=== PATIENT | female | born 1970 | race Caucasian/White ===

== ENCOUNTER 2016-05-08 20:55 | Emergency (ER) | payer MEDICAID, MEDICARE ==
[~2016-05-08 20:55] MED LIST: CREON24 PO; OXYC5 PO; PROT40TA PO; THIA100T PO; VISI0.053 EACH EYE; WARF5 PO
[2016-05-09] MEDS ORDERED: TETR0.052 EACH EYE (22:59)
== END 2016-05-08 21:10 | disposition left against medical advice (07) ==
LOC: NEDAMB 20:55
DX: R10.9 Unspecified abdominal pain (principal)
CPT/HCPCS: 99281

== ENCOUNTER 2016-05-09 15:34 | Emergency (ER) | payer MEDICARE ==
[2016-05-09 15:36] VITALS: BP 125/80; PULSE 97; RESP 18; TEMP 98.3; O2SAT 98
[2016-05-09] MEDS ORDERED: ONDANSETRON HCL 4 MG/2 ML VIAL IVP ONE (19:00)
[2016-05-09] MEDS ORDERED: SODIUM CHLORIDE 0.9% FLUSH 10 ML FLUSH IV FLUSH PRN (19:00)
[2016-05-09] MEDS ORDERED: SODIUM CHLOR 0.9% 1000 ML INJ 1,000 ML IV SCH (19:00)
--- NOTE | 2016-05-09 19:05 | PD ---
HPI Chief Complaint: Abdominal Pain Time Seen by Provider: 19:05 Travel History International Travel<30 days: No Contact w/Intl Traveler<30days: No Traveled to known affect area: No History of Present Illness HPI 46-year-old female presents to the emergency department for evaluation of epigastric abdominal pain for 4 days. Patient has PMH of Alcohol Abuse, Pancreatitis, Antiphospholipid Antibody Syndrome, Superior Mesenteric Vein Thrombosis, Neurosyphilis, Right Eye Blindness, Tobacco Abuse and h/o Spontaneous Pneumothorax. Patient was on Coumadin for thrombosis, but states that she quit taking it after she was discharged last year because she did not like getting her labs redrawn constantly. Patient states that she started drinking again on [employer]'s Day. She states she has never injury every day , but most days. She reports striking 2 beers today. Patient reports history of pancreatitis with similar symptoms. She states that she had some vomiting yesterday. She denies any diarrhea. No blood in her stool. She reports history of laparoscopic abdominal surgery when she was 18. She denies any chance of stating she is not sexually active. She denies any fevers or chills patient has a chest pain or shortness of breath. Patient is a tobacco user. She denies any illegal drug use. PFSH Past Medical History Hx Anticoagulant Therapy: Yes (COUMADIN 5MG PO DAILY) Asthma: No Autoimmune Disease: No Blood Disorders: No Anxiety: No Depression: No Heart Rhythm Problems: No Cancer: No Cardiovascular Problems: Yes High Cholesterol: Yes Chemotherapy: No Chest Pain: No Congestive Heart Failure: No COPD: No Cerebrovascular Accident: No Diabetes: No Diminished Hearing: No Endocrine: No Genitourinary: No Hepatitis: No Hiatal Hernia: No Immune Disorder: No Musculoskeletal: No Neurologic: Yes (NEUROSYPHYLLIS ) Psychiatric: No Reproductive: No Respiratory: Yes (copd) Immunizations Current: Yes Migraines: No Pancreatitis: Yes Radiation Therapy: No Seizures: No Sickle Cell Disease: No Sleep Apnea: No Thyroid Disease: No ?: Not : 2 Para: 2 Past Surgical History Abdominal Surgery: No AICD: No Arteriovenous Shunt: No Body Medical Devices: BREAST IMPLANTS Cardiac Surgery: No Ear Surgery: No Endocrine Surgery: No Eye Surgery: No Genitourinary Surgery: No Gynecologic Surgery: Yes (ENDOMETRIOSIS - LAP 1989; BREAST IMPLANTS) Insulin Pump: No Joint Replacement: No Oral Surgery: Yes Pacemaker: No Thoracic Surgery: Yes (thoracotomy) Tonsillectomy: Yes Other Surgery: Yes (thoracotomy, tonsilectomy ) Social History Alcohol Use: Yes Tobacco Use: Yes (1 PPD) Substance Use: No Allergies-Medications (Allergen,Severity, Reaction): Coded Allergies: Penicillin (Verified Allergy, Severe, Hives, 05/09/16) Reported Meds & Prescriptions Reported Meds & Active Scripts Active Roxicodone 5 Mg Tab (Oxycodone HCl) 5 Mg Tab 10 Mg PO Q4H PRN Protonix (Pantoprazole Sodium) 40 Mg Tab 40 Mg PO Q12HR Coumadin (Warfarin Sod) 5 Mg Tab 5 Mg PO DAILY@1600 Vitamin B1 (Thiamine HCl) 100 Mg Tab 100 Mg PO DAILY Creon (Amylase/Lipase/Protease) 24,000 Unt Cap 1 Cap PO TID Reported Eye Drops (Tetrahydrozoline HCl) 0.05 % Alejandra 1-2 Drop EACH EYE BID PRN Review of Systems Except as stated in HPI: all other systems reviewed are Neg Physical Exam Narrative GENERAL: Well-nourished, well-developed female patient, afebrile. SKIN: Focused skin assessment warm/dry. HEAD: Normocephalic. Atraumatic. EYES: No scleral icterus. No injection or drainage. NECK: Supple, trachea midline. No JVD or lymphadenopathy. CARDIOVASCULAR: Regular rate and rhythm without murmurs, gallops, or rubs. RESPIRATORY: Breath sounds equal bilaterally. No accessory muscle use. Lungs sounds are clear to auscultation GASTROINTESTINAL: Abdomen soft and nondistended. Patient has tenderness over epigastric region and right upper quadrant. MUSCULOSKELETAL: No cyanosis, or edema. BACK: Nontender without obvious deformity. No CVA tenderness. Data Data Last Documented VS Vital Signs Date Time Temp Pulse Resp B/P Pulse Ox O2 Delivery O2 Flow Rate FiO2 05/09/16 21:21 69 17 117/76 97 Room Air 05/09/16 15:36 98.3 Orders Hydromorphone Pf Inj (Dilaudid Pf Inj) (05/09/16 19:15) Complete Blood Count With Diff (05/09/16 19:00) Comprehensive Metabolic Panel (05/09/16 19:00) Lipase (05/09/16 19:00) Urinalysis - C+S If Indicated (05/09/16 19:00) Iv Access Insert/Monitor (05/09/16 19:00) Ecg Monitoring (05/09/16 19:00) Oximetry (05/09/16 19:00) Ondansetron Inj (Zofran Inj) (05/09/16 19:00) Sodium Chlor 0.9% 1000 Ml Inj (Ns 1000 M (05/09/16 19:00) Sodium Chloride 0.9% Flush (Ns Flush) (05/09/16 19:00) Electrocardiogram (05/09/16 19:00) Alcohol (Ethanol) (05/09/16 19:00) Lactic Acid Sepsis Protocol (05/09/16 19:30) Cta Abd/Pel W Iv Contrast W 3d (05/09/16 ) Iohexol 350 Inj (Omnipaque 350 Inj) (05/09/16 19:41) Sodium Chlor 0.9% 1000 Ml Inj (Ns 1000 M (05/09/16 21:00) Urine Culture (05/09/16 21:15) Lactic Acid (05/09/16 22:08) Ceftriaxone Inj (Rocephin Inj) (05/09/16 22:15) Labs Laboratory Tests Test 05/09/16 05/09/16 05/09/16 19:29 19:49 21:15 White Blood Count 5.2 TH/MM3 Red Blood Count 4.77 MIL/MM3 Hemoglobin 16.3 GM/DL Hematocrit 47.6 % Mean Corpuscular Volume 100.0 FL Mean Corpuscular Hemoglobin 34.2 PG Mean Corpuscular Hemoglobin 34.2 % Concent Red Cell Distribution Width 14.8 % Platelet Count 229 TH/MM3 Mean Platelet Volume 6.6 FL Neutrophils (%) (Auto) 43.8 % Lymphocytes (%) (Auto) 40.0 % Monocytes (%) (Auto) 10.3 % Eosinophils (%) (Auto) 5.3 % Basophils (%) (Auto) 0.6 % Neutrophils # (Auto) 2.3 TH/MM3 Lymphocytes # (Auto) 2.1 TH/MM3 Monocytes # (Auto) 0.5 TH/MM3 Eosinophils # (Auto) 0.3 TH/MM3 Basophils # (Auto) 0.0 TH/MM3 CBC Comment DIFF FINAL Differential Comment Sodium Level 136 MEQ/L Potassium Level 4.0 MEQ/L Chloride Level 98 MEQ/L Carbon Dioxide Level 26.8 MEQ/L Anion Gap 11 MEQ/L Blood Urea Nitrogen 4 MG/DL Creatinine 0.61 MG/DL Estimat Glomerular Filtration 105 ML/MIN Rate Random Glucose 92 MG/DL Calcium Level 9.0 MG/DL Total Bilirubin 0.4 MG/DL Aspartate Amino Transf 81 U/L (AST/SGOT) Alanine Aminotransferase 41 U/L (ALT/SGPT) Alkaline Phosphatase 172 U/L Total Protein 8.2 GM/DL Albumin 3.9 GM/DL Lipase 431 U/L Ethyl Alcohol Level 172 MG/DL Lactic Acid Level 2.7 mmol/L Urine Color LIGHT-YELLOW Urine Turbidity HAZY Urine pH 5.0 Urine Specific [place] GREATER THAN 1.050 Urine Protein TRACE mg/dL Urine Glucose (UA) NEG mg/dL Urine Ketones NEG mg/dL Urine Occult Blood SMALL Urine Nitrite POS Urine Bilirubin NEG Urine Urobilinogen LESS THAN 2.0 MG/DL Urine Leukocyte Esterase LARGE Urine RBC 1 /hpf Urine WBC 114 /hpf Urine WBC Clumps RARE Urine Squamous Epithelial 4 /hpf Cells Urine Bacteria MOD /hpf Urine Mucus FEW /lpf Microscopic Urinalysis Comment CULTURE INDICATED MDM Medical Decision Making Medical Screen Exam Complete: Yes Emergency Medical Condition: Yes Medical Record Reviewed: Yes Interpretation(s) Last Impressions Abdomen/Pelvis CT 05/09/16 0000 Signed Impressions: Service Date/Time: Wednesday, May 09, 2016 19:35 - CONCLUSION: Calcification and plaque in the proximal right iliac causing less than 30%% narrowing. Otherwise negative CTA abdomen and pelvis. Mario Neri MD Differential Diagnosis Acute pancreatitis versus cholecystitis versus alcohol abuse versus colitis Narrative Course 46-year-old female presents to the emergency department for evaluation of abdominal pain for 4 days. Patient states is similar to pancreatitis in the past. She reports drinking alcohol since . EKG, CBC, CMP, lipase, lactic acid, UA are ordered and pending. CTA of the abdomen/pelvis with IV contrast is ordered and pending. EKG shows SR, HR 78, no acute ST changes. CBC shows Hgb 16.3, Hct 47.6. CMP shows no acute abnormality. Lipase is 431. UA shows positive nitrate, large leukocyte esterase, culture indicated. Alcohol level is 172. Lactic acid is elevated at 2.7. CTA abdomen/pelvis shows calcification and plaque in the proximal right iliac causing less than 30% narrowing. Otherwise negative CTA abdomen and pelvis. Patient is given a total of 2 L normal saline IV bolus. Lactic acid is repeated after normal saline bolus. Patient is given Rocephin 1 gm IV. Lactic acid is pending. Dr. Leos will follow up on repeat lactic and disposition patient. Anny Lindsey May 09, 2016 19:05
[2016-05-09] MEDS ORDERED: HYDROmorphone HCL PF 1 MG/ML VIAL IV PUSH ONE (19:15)
[2016-05-09 19:20] VITALS: O2SAT 99
[2016-05-09] MEDS ORDERED: IOHEXOL 350 MG/ML 10 ML VIAL (for RAD DIAG) IV ONE (19:41)
[2016-05-09 19:50] LABS: AUTOMATED NEUTROPHIL # 2.3 TH/MM3 (1.8-7.7); BASOPHIL % 0.6 % (0.0-2.0); EOSINOPHIL # 0.3 TH/MM3 (0-0.4); EOSINOPHIL % 5.3 % (0.0-4.0); HEMATOCRIT 47.6 % (35.0-46.0); HEMO FLAGS DIFF FINAL; LYMPHOCYTE # 2.1 TH/MM3 (1.0-4.8); MEAN CORPUSCULAR HEMOGLOBIN 34.2 PG (27.0-34.0); MEAN CORPUSCULAR HGB CONC 34.2 % (32.0-36.0); MONO % 10.3 % (0.0-8.0); NEUT % 43.8 % (16.0-70.0); PLATELET COUNT 229 TH/MM3 (150-450); RED BLOOD COUNT 4.77 MIL/MM3 (4.00-5.30); RED CELL DISTRIBUTION WIDTH 14.8 % (11.6-17.2); WHITE BLOOD COUNT 5.2 TH/MM3 (4.0-11.0)
--- NOTE | 2016-05-09 20:29 | RADRPT ---
EXAM DATE/TIME: 05/09/2016 19:35 [facility] COMPARISON: No previous studies available for comparison. INDICATIONS : Right lower abdomen pain for four days. IV CONTRAST: 80 cc Omnipaque 350 (iohexol) IV ORAL CONTRAST: No oral contrast ingested. RADIATION DOSE: 3.37 CTDIvol (mGy) MEDICAL HISTORY : Pancreatitis. Chronic obstructive pulmonary disease. SURGICAL HISTORY : None. ENCOUNTER: Initial ACUITY: 4 - 6 days PAIN SCALE: 3/10 LOCATION: Right lower quadrant TECHNIQUE: Volumetric scanning was performed using a multi-row detector CT scanner. The data was post processed with a variety of visualization algorithms including full volume maximum intensity projection, multi -planar sliding thin slab reformation, curved planar reformation, and surface rendering techniques. Using automated exposure control and adjustment of the mA and/or kV according to patient size, radiat ion dose was kept as low as reasonably achievable to obtain optimal diagnostic quality images. FINDINGS: ABDOMINAL AORTA: The lumen is smooth without significant narrowing or aneurismal dilation. The celiac axis has 2 orif ices, one from the hepatic artery and the other from the splenic artery. No stenosis seen. The SMA is normal in configuration. There are 2 renal arteries on both sides with the dominant renal artery on the right supplying the upper pole and the dominant on the left supplying the mid and lower pole.. No stenosis seen. BIFURCATION: Normal. RIGHT PELVIS: There is an elongated calcification in the proximal common iliac artery necrosis less than 30% narrow ing. The internal and external iliac vessels are patent without luminal irregularity. LEFT PELVIS: The left common iliac, internal iliac and external iliac vessels are patent and without luminal irreg ularity. CONCLUSION: Calcification and plaque in the proximal right iliac causing less than 30% narrowing. Otherwise nega tive CTA abdomen and pelvis. Mario Neri MD on May 09, 2016 at 20:22 Board Certified Radiologist. This report was verified electronically.
[2016-05-09 20:52] LABS: ALKALINE PHOSPHATASE 172 U/L (45-117); ALT (GPT) 41 U/L (10-53); ANION GAP 11 MEQ/L (5-15); AST (GOT) 81 U/L (15-37); BICARBONATE 26.8 MEQ/L (21.0-32.0); BLOOD UREA NITROGEN 4 MG/DL (7-18); CHLORIDE 98 MEQ/L (98-107); GLOMERULAR FILTRATION RATE 105 ML/MIN (>89); SODIUM (NA) 136 MEQ/L (136-145); TOTAL BILIRUBIN ADULT 0.4 MG/DL (0.2-1.0)
[2016-05-09] MEDS ORDERED: SODIUM CHLOR 0.9% 1000 ML INJ 1,000 ML IV ONE (21:00)
--- NOTE | 2016-05-09 21:09 | PD ---
Data Data Last Documented VS Vital Signs Date Time Temp Pulse Resp B/P Pulse Ox O2 Delivery O2 Flow Rate FiO2 05/09/16 21:21 69 17 117/76 97 Room Air 05/09/16 15:36 98.3 Orders Hydromorphone Pf Inj (Dilaudid Pf Inj) (05/09/16 19:15) Complete Blood Count With Diff (05/09/16 19:00) Comprehensive Metabolic Panel (05/09/16 19:00) Lipase (05/09/16 19:00) Urinalysis - C+S If Indicated (05/09/16 19:00) Iv Access Insert/Monitor (05/09/16 19:00) Ecg Monitoring (05/09/16 19:00) Oximetry (05/09/16 19:00) Ondansetron Inj (Zofran Inj) (05/09/16 19:00) Sodium Chlor 0.9% 1000 Ml Inj (Ns 1000 M (05/09/16 19:00) Sodium Chloride 0.9% Flush (Ns Flush) (05/09/16 19:00) Electrocardiogram (05/09/16 19:00) Alcohol (Ethanol) (05/09/16 19:00) Lactic Acid Sepsis Protocol (05/09/16 19:30) Cta Abd/Pel W Iv Contrast W 3d (05/09/16 ) Iohexol 350 Inj (Omnipaque 350 Inj) (05/09/16 19:41) Sodium Chlor 0.9% 1000 Ml Inj (Ns 1000 M (05/09/16 21:00) Urine Culture (05/09/16 21:15) Ceftriaxone Inj (Rocephin Inj) (05/09/16 22:15) Acetaminophen (Tylenol) (05/09/16 23:45) Labs Laboratory Tests Test 05/09/16 05/09/16 05/09/16 05/09/16 19:29 19:49 21:15 23:00 White Blood Count 5.2 TH/MM3 Red Blood Count 4.77 MIL/MM3 Hemoglobin 16.3 GM/DL Hematocrit 47.6 % Mean Corpuscular Volume 100.0 FL Mean Corpuscular Hemoglobin 34.2 PG Mean Corpuscular Hemoglobin 34.2 % Concent Red Cell Distribution Width 14.8 % Platelet Count 229 TH/MM3 Mean Platelet Volume 6.6 FL Neutrophils (%) (Auto) 43.8 % Lymphocytes (%) (Auto) 40.0 % Monocytes (%) (Auto) 10.3 % Eosinophils (%) (Auto) 5.3 % Basophils (%) (Auto) 0.6 % Neutrophils # (Auto) 2.3 TH/MM3 Lymphocytes # (Auto) 2.1 TH/MM3 Monocytes # (Auto) 0.5 TH/MM3 Eosinophils # (Auto) 0.3 TH/MM3 Basophils # (Auto) 0.0 TH/MM3 CBC Comment DIFF FINAL Differential Comment Sodium Level 136 MEQ/L Potassium Level 4.0 MEQ/L Chloride Level 98 MEQ/L Carbon Dioxide Level 26.8 MEQ/L Anion Gap 11 MEQ/L Blood Urea Nitrogen 4 MG/DL Creatinine 0.61 MG/DL Estimat Glomerular Filtration 105 ML/MIN Rate Random Glucose 92 MG/DL Calcium Level 9.0 MG/DL Total Bilirubin 0.4 MG/DL Aspartate Amino Transf 81 U/L (AST/SGOT) Alanine Aminotransferase 41 U/L (ALT/SGPT) Alkaline Phosphatase 172 U/L Total Protein 8.2 GM/DL Albumin 3.9 GM/DL Lipase 431 U/L Ethyl Alcohol Level 172 MG/DL Lactic Acid Level 2.7 mmol/L 2.3 mmol/L Urine Color LIGHT-YELLOW Urine Turbidity HAZY Urine pH 5.0 Urine Specific [place] GREATER THAN 1.050 Urine Protein TRACE mg/dL Urine Glucose (UA) NEG mg/dL Urine Ketones NEG mg/dL Urine Occult Blood SMALL Urine Nitrite POS Urine Bilirubin NEG Urine Urobilinogen LESS THAN 2.0 MG/DL Urine Leukocyte Esterase LARGE Urine RBC 1 /hpf Urine WBC 114 /hpf Urine WBC Clumps RARE Urine Squamous Epithelial 4 /hpf Cells Urine Bacteria MOD /hpf Urine Mucus FEW /lpf Microscopic Urinalysis Comment CULTURE INDICATED MDM Supervised Visit with [facility]: Yes Narrative Course I, Dr. Leos, have reviewed the advance practice practioner's documentation and am in agreement, met with the patient face to face, made the diagnosis, and the medical decision making was done by me. *My assessment and Findings: 46-year-old female with history of alcoholic pancreatitis, antiphospholipid syndrome with previous superior mesenteric vein thrombosis no longer on anticoagulants here with complaint of epigastric pain radiating to the back similar previous episodes of pancreatitis. Patient took herself anticoagulation approximately year ago because she didn't like having INR checks. She started drinking heavily again on [employer]'s Day and since has had progressively worsening epigastric pain. Overall benign abdominal exam with minimal epigastric pain to palpation. Pain is not out of proportion to exam. No rebound or guarding. Differential includes pancreatitis, gastritis, peptic ulcer disease, hepatobiliary pathology and less likely intra-abdominal vein or arterial thrombosis. CT of the abdomen and pelvis was unremarkable. Laboratory workup notable for minimally elevated lipase and lactate 2.7. Evidence of hemoconcentration with hemoglobin 16.3. Intoxicated with blood alcohol level of the 100s. Patient was given 2 L normal saline bolus and lactate was repeated showing normalization 2.3. Urinalysis is positive for UTI and patient was treated with antibiotics here. She is overall well-appearing and wants to go home. She was able to tolerate clear liquids in the emergency department. Patient will be discharged home with antiemetics, antibiotics and dietary advancement as pain tolerates for pancreatitis. Diagnosis Primary Impression: UTI (lower urinary tract infection) Additional Impressions: Sepsis Qualified Code: A41.9 - Sepsis, due to unspecified organism Acute alcoholic pancreatitis Qualified Code: K85.20 - Alcohol-induced acute pancreatitis without infection or necrosis Referrals: Primary Care Physician as needed Additional Instruction: Nausea medications as needed. Advance diet slowly drinking clear liquids only for the first 24-48 hours. Antibiotics as prescribed. Med/Other Pt SpecificInfo: Prescription(s) given Scripts Cephalexin (Keflex)500 Mg [id number] Mg PO Q8H 7 Days Ref 0 Prov:Elyse Leos MD 05/10/16 Promethazine Supp (Phenergan Supp)25 Mg Supp25 Mg RECTAL Q4H PRN (NAUSEA OR VOMITING) #10 SUPP Ref 0 Prov:Elyse Leos MD 05/10/16 Ondansetron Odt (Zofran Odt)8 Mg Tab8 Mg SL Q8H PRN (NAUSEA OR VOMITING) #10 TAB Ref 0 Prov:Elyse Leos MD 05/10/16 Disposition: 01 DISCHARGE HOME Condition: Stable Elyse Leos MD May 09, 2016 21:08
[2016-05-09 21:21] VITALS: BP 117/76; PULSE 69; RESP 17; O2SAT 97
[2016-05-09 21:56] LABS: LACTIC ACID GHOST NOT REPORTABLE
[2016-05-09 22:01] LABS: BACTERIA, URINE MOD /hpf; BLOOD, URINE SMALL (NEG); COMMENT (UR) CULTURE INDICATED; CULTURE IF INDICATED CULTURE INDICATED; GLUCOSE,URINE NEG (NEG); KETONE, URINE NEG (NEG); MUCUS URINE FEW /lpf (OCC); SQUAMOUS EPITHELIAL CELL URINE 4 /hpf (0-5); URINE COLOR LIGHT-YELLOW (YELLW/STRAW)
[2016-05-09 22:08] LABS: NITRITE,URINE POS (NEG)
[2016-05-09] MEDS ORDERED: cefTRIAXone INJ 1,000 MG in SODIUM CHLORIDE 0.9% INJ 100 ML IV ONE (22:15)
[2016-05-09] MEDS ORDERED: TETR0.052 EACH EYE (22:59)
--- NOTE | 2016-05-09 23:43 | EKG ---
Date Performed: 05/09/2016 Time Performed: 19:11:57 PTAGE: 46 years EKG: Sinus rhythm POSSIBLE LEFT ATRIAL ENLARGEMENT SEPTAL MYOCARDIAL INFARCTION ABNORMAL ECG PREVIOUS TRACING : 06/15/2015 18.35 DOCTOR: Jonathan Hurtado Interpretating Date/Time 05/09/2016 23:41:42
[2016-05-09] MEDS ORDERED: ACETAMINOPHEN 500 MG CPLT PO ONE (23:45)
[2016-05-10] MEDS ORDERED: PROM1SUP7 RECTAL (00:07)
[2016-05-10] MEDS ORDERED: CEPH-460 PO (00:07)
[2016-05-10] MEDS ORDERED: ZOFR8TAB4 SL (00:07)
[2016-05-10 00:19] VITALS: BP 137/72; PULSE 74; RESP 18; O2SAT 96
== END 2016-05-10 00:55 | disposition home or self-care (01) ==
LOC: NEPE 15:34
DX: N39.0 Urinary tract infection, site not specified (principal); A41.9 Sepsis, unspecified organism; K85.20 Alcohol induced acute pancreatitis without necrosis or infection; B96.20 Unspecified Escherichia coli [E. coli] as the cause of diseases classified elsewhere; R94.31 Abnormal electrocardiogram [ECG] [EKG]; E78.00 Pure hypercholesterolemia, unspecified; F17.200 Nicotine dependence, unspecified, uncomplicated; Z87.19 Personal history of other diseases of the digestive system; Z86.79 Personal history of other diseases of the circulatory system; Z86.69 Personal history of other diseases of the nervous system and sense organs
CPT/HCPCS: 74174; 80053; 80307; 81001; 83605; 83690; 85025; 87077; 87086; 87186; 93005; 96361; 96365; 96375; 99284; J0696; J1170; J2405; J7030; Q9967

== ENCOUNTER 2016-06-22 19:38 | Inpatient (IN) | payer MEDICARE ==
[~2016-06-22] VITALS: Ht 162.6 cm; Wt 47.2 kg
[~2016-06-22 19:38] MED LIST changes: +CEPH-460 PO; -CREON24 PO; -OXYC5 PO; +PROM1SUP7 RECTAL; -PROT40TA PO; +TETR0.052 EACH EYE; -THIA100T PO; -VISI0.053 EACH EYE; -WARF5 PO; +ZOFR8TAB4 SL
[2016-06-22] MEDS ORDERED: MORPHINE SULFATE 4 MG/ML INJ IV PUSH ONE (20:00)
[2016-06-22] MEDS ORDERED: SODIUM CHLOR 0.9% 1000 ML INJ 1,000 ML IV ONE (20:00)
[2016-06-22] MEDS ORDERED: ONDANSETRON HCL 4 MG/2 ML VIAL IV ONE (20:00)
[2016-06-22 20:08] VITALS: BP 145/85; PULSE 92; RESP 16; TEMP 98.3; O2SAT 100
--- NOTE | 2016-06-22 20:08 | PD ---
HPI Chief Complaint: abdominal pain Time Seen by Provider: 19:50 Travel History International Travel<30 days: No Contact w/Intl Traveler<30days: No History of Present Illness HPI The patient is a 46 year old female who presents to the [facility] emergency department with a history of abdominal pain and she reports began yesterday. The patient reports that the pain is in the midepigastric area and right upper quadrant of the abdomen. She reports that it is constant and sharp in character with a burning sensation that goes straight through to her back. She reports that the pain is a 10 out of 10 in severity today. She reports that it is similar to her prior history of pancreatitis. She reports that she was diagnosed with pancreatitis he year ago. She reports that she recently relapsed with drinking alcohol on April 24, 2016. She reports that she had been drinking a 6 pack per day. She has weaned herself down to 2 beers per day. She reports she does get tremulous when she does not drink. She reports that she's had nausea and vomiting 10 today. She denies having any diarrhea. Her last bowel movement was yesterday. She denies having any fevers or chills. She does have a lingering cough after being diagnosed with pneumonia 2 months ago. She denies it being more productive than usual. She reports that it is usually productive of the morning. She reports that she continues to smoke a pack cigarettes per day. She does have a history of COPD and has had a thoracotomy related to bleb resection from COPD. She denies having a primary care physician. She denies taking any medications other than using an eyedrop for a history of neurosyphilis and legal blindness associated with this. She denies having any dysuria, hematuria, urinary urgency, or frequency. The patient denies any recent fevers, worsening congestion, neck pain, chest pain, worsening shortness of breath, or neurologic symptoms. LMP: 2 years ago. PFSH Past Medical History Narrative Medical The patient's past medical history is significant for COPD, neurosyphilis with resultant visual impairment, consider to be legally blind, history of pancreatitis, history of alcohol abuse, hyperlipidemia. Hx Anticoagulant Therapy: Yes (COUMADIN 5MG PO DAILY) Asthma: No Autoimmune Disease: No Blood Disorders: No Anxiety: No Depression: No Heart Rhythm Problems: No Cancer: No Cardiovascular Problems: Yes High Cholesterol: Yes Chemotherapy: No Chest Pain: No Congestive Heart Failure: No COPD: No Cerebrovascular Accident: No Diabetes: No Diminished Hearing: No Endocrine: No Genitourinary: No Hepatitis: No Hiatal Hernia: No Immune Disorder: No Musculoskeletal: No Neurologic: Yes (NEUROSYPHYLLIS ) Psychiatric: No Reproductive: No Respiratory: Yes (copd) Immunizations Current: Yes Migraines: No Pancreatitis: Yes Radiation Therapy: No Seizures: No Sickle Cell Disease: No Sleep Apnea: No Thyroid Disease: No : 2 Para: 2 Past Surgical History Narrative Surgical The patient's past surgical history is significant for breast implants, laparoscopy related to endometriosis, tonsillectomy, thoracotomy, oral surgery. Abdominal Surgery: No AICD: No Arteriovenous Shunt: No Body Medical Devices: BREAST IMPLANTS Cardiac Surgery: No Ear Surgery: No Endocrine Surgery: No Eye Surgery: No Genitourinary Surgery: No Gynecologic Surgery: Yes (ENDOMETRIOSIS - LAP 1988; BREAST IMPLANTS) Insulin Pump: No Joint Replacement: No Oral Surgery: Yes Pacemaker: No Thoracic Surgery: Yes (thoracotomy) Tonsillectomy: Yes Other Surgery: Yes (thoracotomy, tonsilectomy ) Social History Alcohol Use: Yes (2 beers per day) Tobacco Use: Yes (one pack per day) Substance Use: No Allergies-Medications (Allergen,Severity, Reaction): Coded Allergies: Penicillin (Verified Allergy, Severe, Hives, 06/22/16) Reported Meds & Prescriptions Reported Meds & Active Scripts Active Keflex (Cephalexin) 500 Mg Cap 500 Mg PO Q8H 7 Days Phenergan Supp (Promethazine HCl) 25 Mg Supp 25 Mg RECTAL Q4H PRN Zofran Odt (Ondansetron Odt) 8 Mg Tab 8 Mg SL Q8H PRN Reported Tetrahydrozoline Opth Drops 0.05 % Soln 1-2 Drop EACH EYE QID PRN Review of Systems Except as stated in HPI: all other systems reviewed are Neg General / Constitutional: No: Fever Eyes: No: Visual changes HENT: No: Headaches Cardiovascular: No: Chest Pain or Discomfort Respiratory: No: Shortness of Breath Gastrointestinal: Positive: Nausea, Vomiting, Abdominal Pain, No: Diarrhea, Hematemesis, Hematochezia, Constipation, Indigestion, Loss of Appetite Genitourinary: No: Urgency, Frequency, Dysuria, Flank Pain Musculoskeletal: No: Pain Skin: No Rash Neurologic: No: Weakness Psychiatric: No: Depression Endocrine: No: Polydipsia Hematologic/Lymphatic: No: Easy Bruising Physical Exam Narrative General: The patient is a well-developed, thin appearing female, in no acute distress. Head and Neck exam: Head is normocephalic atraumatic. Eyes: The patient is legally blind. The patient's right pupil is not reactive to light, however she reports that she has no vision in that eye, the left pupil is dilated at 6 mm and reactive to light. She reports having chronic light sensitivity in her eyes. Nose: Midline septum with pink mucous membranes Mouth: Dentition unremarkable. Moist mucus membranes. Posterior oropharynx is not erythematous. No tonsillar hypertrophy. Uvula midline. Airway patent. Neck: No palpable lymphadenopathy. No nuchal rigidity. No thyromegaly. Cardiovascular: Regular rate and rhythm without murmurs, gallops, or rubs. Lungs: Clear to auscultation bilaterally. No wheezes, rhonchi, or rales. Abdomen: Soft, with tenderness on palpation in the midepigastric area and right upper quadrant no other tenderness on palpation of the other quadrants of the abdomen. No guarding, rebound, or rigidity. Normal bowel sounds are audible. No tenderness on palpation of McBurney's point. Negative [place] sign. Extremities: No clubbing, cyanosis, or edema. 2+ pulses in all 4 extremities. No calf tenderness on palpation. Back: No spinous process tenderness to palpation. No costovertebral angle tenderness to palpation. Neurologic Exam: Grossly nonfocal. Skin Exam: No rash noted. Intact skin that is warm and dry. Data Data Last Documented VS Vital Signs Date Time Temp Pulse Resp B/P Pulse Ox O2 Delivery O2 Flow Rate FiO2 06/22/16 20:08 98.3 92 16 145/85 100 Room Air Orders Complete Blood Count With Diff (06/22/16 20:00) Comprehensive Metabolic Panel (06/22/16 20:00) Creatine Kinase (Cpk) (06/22/16 20:00) Ckmb (Isoenzyme) Profile (06/22/16 20:00) Troponin I (06/22/16 20:00) B-Type Natriuretic Peptide (06/22/16 20:00) Prothrombin Time / Inr (Pt) (06/22/16 20:00) Act Partial Throm Time (Ptt) (06/22/16 20:00) Lipase (06/22/16 20:00) Urinalysis - C+S If Indicated (06/22/16 20:00) Magnesium (Mg) (06/22/16 20:00) Chest, Single Ap (06/22/16 20:00) Ct Abd/Pel W Iv Contrast(Rout) (06/22/16 20:00) Iv Access Insert/Monitor (06/22/16 20:00) Ecg Monitoring (06/22/16 20:00) Oximetry (06/22/16 20:00) Ed Urine Pregnancytest Poc (06/22/16 20:00) Drug Screen, Random Urine (06/22/16 20:00) Alcohol (Ethanol) (06/22/16 20:00) Sodium Chlor 0.9% 1000 Ml Inj (Ns 1000 M (06/22/16 20:00) Ondansetron Inj (Zofran Inj) (06/22/16 20:00) Morphine Inj (Morphine Inj) (06/22/16 20:00) Lactic Acid (06/22/16 20:00) Admit Order (Ed Use Only) (06/22/16 21:41) Labs Laboratory Tests Test 06/22/16 06/22/16 20:00 20:20 White Blood Count 7.7 TH/MM3 Red Blood Count 4.80 MIL/MM3 Hemoglobin 16.6 GM/DL Hematocrit 48.8 % Mean Corpuscular Volume 101.7 FL Mean Corpuscular Hemoglobin 34.5 PG Mean Corpuscular Hemoglobin 33.9 % Concent Red Cell Distribution Width 15.2 % Platelet Count 196 TH/MM3 Mean Platelet Volume 8.1 FL Neutrophils (%) (Auto) 76.3 % Lymphocytes (%) (Auto) 17.3 % Monocytes (%) (Auto) 5.4 % Eosinophils (%) (Auto) 0.2 % Basophils (%) (Auto) 0.8 % Neutrophils # (Auto) 5.9 TH/MM3 Lymphocytes # (Auto) 1.3 TH/MM3 Monocytes # (Auto) 0.4 TH/MM3 Eosinophils # (Auto) 0.0 TH/MM3 Basophils # (Auto) 0.1 TH/MM3 CBC Comment DIFF FINAL Differential Comment Prothrombin Time 14.7 SEC Prothromb Time International 1.3 RATIO Ratio Activated Partial 32.4 SEC Thromboplast Time Sodium Level 133 MEQ/L Potassium Level 3.5 MEQ/L Chloride Level 89 MEQ/L Carbon Dioxide Level 26.4 MEQ/L Anion Gap 18 MEQ/L Blood Urea Nitrogen 4 MG/DL Creatinine 0.56 MG/DL Estimat Glomerular Filtration 116 ML/MIN Rate Random Glucose 122 MG/DL Calcium Level 9.7 MG/DL Magnesium Level 1.9 MG/DL Total Bilirubin 0.5 MG/DL Aspartate Amino Transf 204 U/L (AST/SGOT) Alanine Aminotransferase 107 U/L (ALT/SGPT) Alkaline Phosphatase 220 U/L Total Creatine Kinase 57 U/L Troponin I LESS THAN 0.02 NG/ML B-Type Natriuretic Peptide 13 PG/ML Total Protein 8.4 GM/DL Albumin 4.2 GM/DL Lipase 4124 U/L Ethyl Alcohol Level 173 MG/DL Lactic Acid Level 1.1 mmol/L [facility] Medical Decision Making Medical Screen Exam Complete: Yes Emergency Medical Condition: Yes Medical Record Reviewed: Yes Interpretation(s) Last Impressions Chest X-Ray 06/22/161999 Signed Impressions: Service Date/Time: Wednesday, June 22, 2016 20:27 - CONCLUSION: No acute disease. Shane Mccoy MD Differential Diagnosis Acute pancreatitis, versus exacerbation of chronic pancreatitis, versus peptic ulcer disease, versus alcohol related gastritis, versus esophagitis, versus ischemic bowel Narrative Course During the course of the patients emergency department visit, the patients history, examination, and differential diagnosis were reviewed with the patient. The patient had IV access obtained and blood work sent for analysis. The patient was placed on a director of cardiac rehabilitation with oximetry and blood pressure monitoring. The patient was initially provided Normal saline 1 L IV fluid bolus, Zofran 4 mg IV, morphine 4 mg IV. The patients laboratory studies were reviewed and remarkable for a CMP that is remarkable for sodium 133, chloride 89, anion gap 18, BUN 4, glucose 122, lactic acid 1.1, AST 204, ALT 107, alkaline phosphatase 220, CPK 57, troponin I less than 0.02, BNP 13, lipase 4124, PT 14.7, PTT 32.4, alcohol level CLXXIII, CBC shows a white count of 7.7, hemoglobin 16.6, platelets 196 with 76.3 neutrophils Radiology studies were reviewed and remarkable for a chest x-ray that shows no acute abnormality. CT scan of the abdomen and pelvis shows. Pancreatic fluid and stranding likely from pancreatitis, correlation with amylase lipase levels recommended, right basilar atelectasis, mild hepatic steatosis. The patient will be admitted to the hospital for continued evaluation and treatment of acute pancreatitis related to alcohol abuse. The patients results were discussed with the patient, including the plan of care. I explained that further testing and/ or monitoring is indicated based on the patients history, examination, and/ or laboratory findings. Therefore, I recommended admission for additional evaluation. The patient expressed understanding and was agreeable with this plan. The patient was admitted to the hospital in stable condition and [facility] Physician Communication Physician Communication The patient's case was discussed with Dr. Liz who did agree to admit the patient for further evaluation and treatment at this time. Diagnosis Primary Impression: Acute alcoholic pancreatitis Qualified Code: K85.20 - Alcohol-induced acute pancreatitis, unspecified complication status Additional Impression: Alcohol abuse Admitting Information Admitting Physician Requests: Admit Ileana Garcia MD June 22, 2016 20:08
--- NOTE | 2016-06-22 20:31 | RADRPT ---
EXAM DATE/TIME: 06/22/2016 20:27 [facility] COMPARISON: No previous studies available for comparison. INDICATIONS : Chest and abdominal pain. MEDICAL HISTORY : Pancreatitis. Chronic obstructive pulmonary disease. SURGICAL HISTORY : None. ENCOUNTER: Initial ACUITY: 1 day PAIN SCORE: 6/10 LOCATION: Bilateral chest FINDINGS: Patient rotated to the right. A single view of the chest demonstrates the lungs to be symmetrically a erated without evidence of mass, infiltrate or effusion. The cardiomediastinal contours are unremark able. Osseous structures are intact. CONCLUSION: No acute disease. Shane Mccoy MD on June 22, 2016 at 20:28 Board Certified Radiologist. This report was verified electronically.
[2016-06-22 21:11] LABS: APTT (PATIENT) 32.4 SEC (24.3-30.1); INTERNATIONAL NORMALIZED RATIO 1.3 RATIO; PROTHROMBIN TIME - PATIENT 14.7 SEC (9.8-11.6)
[2016-06-22 21:31] LABS: ALKALINE PHOSPHATASE 220 U/L (45-117); ALT (GPT) 107 U/L (10-53); ANION GAP 18 MEQ/L (5-15); AST (GOT) 204 U/L (15-37); BICARBONATE 26.4 MEQ/L (21.0-32.0); BLOOD UREA NITROGEN 4 MG/DL (7-18); CHLORIDE 89 MEQ/L (98-107); GLOMERULAR FILTRATION RATE 116 ML/MIN (>89); MAGNESIUM 1.9 MG/DL (1.5-2.5); POTASSIUM 3.5 MEQ/L (3.5-5.1); SODIUM (NA) 133 MEQ/L (136-145); TOTAL BILIRUBIN ADULT 0.5 MG/DL (0.2-1.0)
[2016-06-22 21:32] LABS: CREATINE KINASE 57 U/L (26-192)
[2016-06-22] MEDS ORDERED: METOCLOPRAMIDE HCL 10 MG/2 ML VIAL IV PUSH ONE (22:00)
[2016-06-22 22:20] LABS: AUTOMATED NEUTROPHIL # 5.9 TH/MM3 (1.8-7.7); BASOPHIL # 0.1 TH/MM3 (0-0.2); BASOPHIL % 0.8 % (0.0-2.0); EOSINOPHIL % 0.2 % (0.0-4.0); HEMATOCRIT 48.8 % (35.0-46.0); HEMO FLAGS DIFF FINAL; LYMPH % 17.3 % (9.0-44.0); LYMPHOCYTE # 1.3 TH/MM3 (1.0-4.8); MEAN CELL VOLUME 101.7 FL (80.0-100.0); MEAN CORPUSCULAR HEMOGLOBIN 34.5 PG (27.0-34.0); MEAN CORPUSCULAR HGB CONC 33.9 % (32.0-36.0); MONO % 5.4 % (0.0-8.0); NEUT % 76.3 % (16.0-70.0); PLATELET COUNT 196 TH/MM3 (150-450); RED CELL DISTRIBUTION WIDTH 15.2 % (11.6-17.2); WHITE BLOOD COUNT 7.7 TH/MM3 (4.0-11.0)
[2016-06-22] MEDS ORDERED: IOHEXOL 350 MG/ML 10 ML VIAL (for RAD DIAG) IV ONE (22:30)
--- NOTE | 2016-06-22 22:44 | RADRPT ---
EXAM DATE/TIME: 06/22/2016 22:25 [facility] COMPARISON: CT ABDOMEN & PELVIS W CONTRAST, June 15, 2015, 19:44. INDICATIONS : Right upper quadrant pain radiating towards back. IV CONTRAST: 80 cc Omnipaque 350 (iohexol) IV ORAL CONTRAST: No oral contrast ingested. RADIATION DOSE: 4.11 CTDIvol (mGy) MEDICAL HISTORY : Chronic obstructive pulmonary disease. Cardiovascular disease Hypercholesterolemia.Pancreatitis. SURGICAL HISTORY : Thoracotomy. ENCOUNTER: Initial ACUITY: 2 days PAIN SCALE: 10/10 LOCATION: Right upper quadrant TECHNIQUE: Volumetric scanning of the abdomen and pelvis was performed. Using automated exposure control and ad justment of the mA and/or kV according to patient size, radiation dose was kept as low as reasonably achievable to obtain optimal diagnostic quality images. FINDINGS: LOWER LUNGS: Right basilar atelectasis. LIVER: Decreased attenuation without lesion. There is no dilation of the biliary tree. No calcified gallst ones. SPLEEN: Normal size without lesion. PANCREAS: There is fluid and stranding surrounding the pancreas and throughout the mesentery. No peripancreatic fluid collection or abscess. KIDNEYS: Normal in size and shape. There is no mass, stone or hydronephrosis. ADRENAL GLANDS: Within normal limits. VASCULAR: There is no aortic aneurysm. BOWEL/MESENTERY: The stomach, small bowel, and colon demonstrate no acute abnormality. There is no free intraperitone al air or fluid. Normal appendix. ABDOMINAL WALL: Within normal limits. RETROPERITONEUM: There is no lymphadenopathy. BLADDER: No wall thickening or mass. REPRODUCTIVE: Within normal limits. INGUINAL: There is no lymphadenopathy or hernia. MUSCULOSKELETAL: Within normal limits for patient age. CONCLUSION: 1. Peripancreatic fluid and stranding likely from pancreatitis. Correlation with amylase/lipase level s recommended. 2. Right basilar atelectasis. 3. Mild hepatic steatosis Shane Mccoy MD on June 22, 2016 at 22:39 Board Certified Radiologist. This report was verified electronically.
[2016-06-22] MEDS: ENOXAPARIN SODIUM 40 MG/0.4 ML SYRINGE SQ SCH (23:00)
[2016-06-22] MEDS ORDERED: SODIUM CHLORIDE 0.9% FLUSH 10 ML FLUSH IV FLUSH PRN (23:15)
[2016-06-23 01:00] VITALS: BP 116/85; PULSE 100; RESP 16; TEMP 99.5; O2SAT 98
[2016-06-23] MEDS: MORPHINE SULFATE 4 MG/ML INJ IV PUSH PRN ×4 (01:17→14:24)
[2016-06-23] MEDS: ONDANSETRON HCL 4 MG/2 ML VIAL IV PRN ×3 (01:17→17:27)
[2016-06-23] MEDS: SODIUM CHLOR 0.9% 1000 ML INJ 1,000 ML IV SCH ×5 (01:18→23:45)
[2016-06-23 01:55] LABS: BLOOD, URINE TRACE (NEG); COMMENT (UR) CULT NOT INDICATED; CULTURE IF INDICATED CULT NOT INDICATED; GLUCOSE,URINE NEG (NEG); KETONE, URINE 10 mg/dL (NEG); MUCUS URINE FEW /lpf (OCC); NITRITE,URINE NEG (NEG); SQUAMOUS EPITHELIAL CELL URINE 1 /hpf (0-5); URINE COLOR YELLOW (YELLW/STRAW)
[2016-06-23 04:00] VITALS: BP 116/76; PULSE 88; RESP 16; TEMP 99; O2SAT 97
[2016-06-23 07:34] LABS: BASOPHIL # 0.1 TH/MM3 (0-0.2); BASOPHIL % 0.7 % (0.0-2.0); EOSINOPHIL # 0.1 TH/MM3 (0-0.4); HEMO FLAGS DIFF FINAL; LYMPHOCYTE # 1.8 TH/MM3 (1.0-4.8); MEAN CELL VOLUME 101.6 FL (80.0-100.0); MEAN CORPUSCULAR HEMOGLOBIN 33.7 PG (27.0-34.0); MEAN CORPUSCULAR HGB CONC 33.2 % (32.0-36.0); MONO % 9.4 % (0.0-8.0); NEUT % 65.9 % (16.0-70.0); PLATELET COUNT 145 TH/MM3 (150-450); RED BLOOD COUNT 4.23 MIL/MM3 (4.00-5.30); WHITE BLOOD COUNT 7.6 TH/MM3 (4.0-11.0)
[2016-06-23 07:52] LABS: ALKALINE PHOSPHATASE 163 U/L (45-117); ALT (GPT) 71 U/L (10-53); ANION GAP 9 MEQ/L (5-15); AST (GOT) 108 U/L (15-37); BICARBONATE 28.8 MEQ/L (21.0-32.0); BLOOD UREA NITROGEN 4 MG/DL (7-18); CHLORIDE 99 MEQ/L (98-107); GLOMERULAR FILTRATION RATE 182 ML/MIN (>89); POTASSIUM 3.6 MEQ/L (3.5-5.1); SODIUM (NA) 137 MEQ/L (136-145); TOTAL BILIRUBIN ADULT 0.5 MG/DL (0.2-1.0)
[2016-06-23 08:00] VITALS: BP 121/63; PULSE 83; RESP 18; TEMP 98.4; O2SAT 97
[2016-06-23 08:59] LABS: AMPHETAMINE, URINE NEG (NEG); BARBITURATES, URINE NEG (NEG); COCAINE, URINE NEG (NEG)
[2016-06-23] MEDS: SODIUM CHLORIDE 0.9% FLUSH 10 ML FLUSH IV FLUSH SCH ×2 (09:00→21:09)
[2016-06-23 12:00] VITALS: BP 108/63; PULSE 79; RESP 18; TEMP 97.8; O2SAT 92
--- NOTE | 2016-06-23 14:35 | HHI.HP ---
HPI Service [facility] Primary Care Physician No Primary Care Physician Admission Diagnosis Acute pancreatitis, etoh abuse Diagnoses: Chief Complaint: Abdominal pain Travel History International Travel<30 Days: No Contact w/Intl Traveler <30 Da: No Traveled to Known Affected Are: No History of Present Illness Ms. Molina is a 46-year-old female with a history of pancreatitis, alcoholism who presented to the emergency department on 06/22/2016 due to abdominal pain that started day prior to this admission. Patient reported epigastric pain as well as right upper quadrant abdominal pain. Her pain was constant and sharp in nature with a burning sensation and radiated to her back. Her epigastric pain also radiates up substernally with a burning sensation. Pain was 10 out of 10. She had nausea, vomiting yesterday. She has been unable to eat or drink anything and currently does not feel like eating or drinking anything. Denies any fever, chills. Denies any changes in bowel or bladder habits. Review of Systems Except as stated in HPI: all other systems reviewed are Neg Past Family Social History Past Medical History Hyperlipidemia, pancreatitis. Past Surgical History Breast implants, surgery for endometriosis, tonsillectomy Reported Medications Keflex (Cephalexin) 500 Mg Cap 500 Mg PO Q8H 7 Days Phenergan Supp (Promethazine HCl) 25 Mg Supp 25 Mg RECTAL Q4H PRN Zofran Odt (Ondansetron Odt) 8 Mg Tab 8 Mg SL Q8H PRN Reported Tetrahydrozoline Opth Drops 0.05 % Soln 1-2 Drop EACH EYE QID PRN Allergies: Coded Allergies: Penicillin (Verified Allergy, Severe, Hives, 06/22/16) Family History Mother - stroke. Father - [place]. Social History Smokes one pack per day and drinks 2 beers per day. Physical Exam Vital Signs Vital Signs Date Time Temp Pulse Resp B/P Pulse Ox O2 Delivery O2 Flow Rate FiO2 06/23/16 12:00 97.8 79 18 108/63 92 06/23/16 09:12 Room Air 06/23/16 08:00 98.4 83 18 121/63 97 06/23/16 04:00 99.0 88 16 116/76 97 06/23/16 01:02 Room Air 06/23/16 01:00 99.5 100 16 116/85 98 06/22/16 20:08 98.3 92 16 145/85 100 Room Air Physical Exam GENERAL: This is a well-nourished, well-developed patient, in no apparent distress. SKIN: No rashes, ecchymoses or lesions. Warm and dry. HEAD: Atraumatic. Normocephalic. No temporal or scalp tenderness. EYES: Pupils equal round and reactive. No injection or drainage. ENT: Nose without bleeding, purulent drainage or septal hematoma. Airway patent. NECK: Trachea midline. No lymphadenopathy. Supple, nontender, no meningeal signs. CARDIOVASCULAR: Regular rate and rhythm without murmurs, gallops, or rubs. No JVD. RESPIRATORY: Clear to auscultation. Breath sounds equal bilaterally. No wheezes , rales, or rhonchi. GASTROINTESTINAL: Abdomen soft, exquisitely tender to palpation especially epigastric and left side of the abdomen. MUSCULOSKELETAL: Extremities without clubbing, cyanosis, or edema. NEUROLOGICAL: Awake and alert. Cranial nerves II through XII intact. No focal neurological deficits. Normal speech. Laboratory Laboratory Tests Test 06/22/16 06/22/16 06/23/16 06/23/16 20:00 20:20 01:00 06:09 White Blood Count 7.7 7.6 Red Blood Count 4.80 4.23 Hemoglobin 16.6 14.3 Hematocrit 48.8 43.0 Mean Corpuscular Volume 101.7 101.6 Mean Corpuscular Hemoglobin 34.5 33.7 Mean Corpuscular Hemoglobin 33.9 33.2 Concent Red Cell Distribution Width 15.2 15.0 Platelet Count 196 145 Mean Platelet Volume 8.1 6.8 Neutrophils (%) (Auto) 76.3 65.9 Lymphocytes (%) (Auto) 17.3 23.0 Monocytes (%) (Auto) 5.4 9.4 Eosinophils (%) (Auto) 0.2 1.0 Basophils (%) (Auto) 0.8 0.7 Neutrophils # (Auto) 5.9 5.0 Lymphocytes # (Auto) 1.3 1.8 Monocytes # (Auto) 0.4 0.7 Eosinophils # (Auto) 0.0 0.1 Basophils # (Auto) 0.1 0.1 CBC Comment DIFF FINAL DIFF FINAL Differential Comment Prothrombin Time 14.7 Prothromb Time International 1.3 Ratio Activated Partial 32.4 Thromboplast Time Sodium Level 133 137 Potassium Level 3.5 3.6 Chloride Level 89 99 Carbon Dioxide Level 26.4 28.8 Anion Gap 18 9 Blood Urea Nitrogen 4 4 Creatinine 0.56 0.38 Estimat Glomerular Filtration 116 182 Rate Random Glucose 122 75 Calcium Level 9.7 8.4 Magnesium Level 1.9 Total Bilirubin 0.5 0.5 Aspartate Amino Transf 204 108 (AST/SGOT) Alanine Aminotransferase 107 71 (ALT/SGPT) Alkaline Phosphatase 220 163 Total Creatine Kinase 57 Troponin I LESS THAN 0.02 B-Type Natriuretic Peptide 13 Total Protein 8.4 6.5 Albumin 4.2 3.1 Lipase 4124 3826 Ethyl Alcohol Level 173 Lactic Acid Level 1.1 Urine Color YELLOW Urine Turbidity CLEAR Urine pH 7.0 Urine Specific [place] 1.050 Urine Protein TRACE Urine Glucose (UA) NEG Urine Ketones 10 Urine Occult Blood TRACE Urine Nitrite NEG Urine Bilirubin NEG Urine Urobilinogen LESS THAN 2.0 Urine Leukocyte Esterase NEG Urine RBC LESS THAN 1 Urine WBC 1 Urine Squamous Epithelial 1 Cells Urine Mucus FEW Microscopic Urinalysis Comment CULT NOT INDICATED Urine Opiates Screen POS Urine Barbiturates Screen NEG Urine Amphetamines Screen NEG Urine Benzodiazepines Screen NEG Urine Cocaine Screen NEG Urine Cannabinoids Screen NEG Result Diagram: 06/23/16 0609 06/23/16 0609 Imaging Last Impressions Chest X-Ray 06/22/161999 Signed Impressions: Service Date/Time: Wednesday, June 22, 2016 20:27 - CONCLUSION: No acute disease. Shane Mccoy MD Abdomen/Pelvis CT 06/22/161999 Signed Impressions: Service Date/Time: Wednesday, June 22, 2016 22:25 - CONCLUSION: 1. Peripancreatic fluid and stranding likely from pancreatitis. Correlation with amylase/lipase levels recommended. 2. Right basilar atelectasis. 3. Mild hepatic steatosis Shane Mccoy MD Assessment and Plan Problem List: (1) Acute alcoholic pancreatitis ICD Code: K85.2 Status: Acute Assessment and Plan Ms. Molina is a pleasant 46-year-old female with a history of alcoholism, previous pancreatitis who presents to the emergency department on with acute onset of epigastric pain radiating to the back as well as right quadrant pain and later left quadrant abdominal pain. Patient denies any fever or chills. She reports no appetite for food or drinks. Lipase level was above 4000 on admission. - Acute alcoholic pancreatitis - Although likely etiology is alcohol, will obtain abdominal ultrasound to rule out gallbladder pathology. - Increase normal saline from 125 cc per hour to 200 cc per hour. - Discontinue morphine IV. - Start Dilaudid IV 0.5 mg every 4 hours when necessary for pain 3-5 and 1 mg Dilaudid every 3 hours for pain 6-10. - We will initiate diet when patient feels ready. - Alcohol abuse - Counseled patient regarding alcohol abuse and pancreatitis as well as liver disease. - Patient is encouraged to quit alcohol completely. Full code. Susy Physician Certification 2 Midnight Certification Type: Admission for Inpatient Services Order for Inpatient Services The services are ordered in accordance with Medicare regulations or non- Medicare payer requirements, as applicable. In the case of services not specified as inpatient-only, they are appropriately provided as inpatient services in accordance with the 2-midnight benchmark. Estimated LOS (days): 2 days is the estimated time the patient will need to remain in the hospital, assuming treatment plan goals are met and no additional complications. Post-Hospital Plan: Home Problem Qualifiers (1) Acute alcoholic pancreatitis: Qualified Code: K85.20 - Alcohol-induced acute pancreatitis, unspecified complication status Luiz Greene DO June 23, 2016 2:34 pm
[2016-06-23 16:00] VITALS: BP 121/72; PULSE 76; RESP 18; TEMP 97.9; O2SAT 93
[2016-06-23] MEDS ORDERED: HYDROmorphone HCL PF 1 MG/ML VIAL IV PUSH PRN (17:00)
[2016-06-23] MEDS: HYDROmorphone HCL PF 1 MG/ML VIAL IV PUSH PRN ×2 (17:27→21:09)
[2016-06-23 20:00] VITALS: BP 104/67; PULSE 66; RESP 18; TEMP 96.8; O2SAT 97
[2016-06-23] MEDS ORDERED: RESP: ALBUTEROL 2.5 MG/IPRATROPIUM 0.5 MG NEB (PRN) NEB (21:45)
[2016-06-23] MEDS ORDERED: LORazepam 2 MG/ML VIAL IV PUSH PRN (21:45)
[2016-06-23] MEDS: ENOXAPARIN SODIUM 40 MG/0.4 ML SYRINGE SQ SCH (23:45)
[2016-06-24] VITALS: BP 119/71; PULSE 69; RESP 20; TEMP 98.4; O2SAT 99
[2016-06-24] MEDS: ONDANSETRON HCL 4 MG/2 ML VIAL IV PRN (00:55)
[2016-06-24] MEDS: HYDROmorphone HCL PF 1 MG/ML VIAL IV PUSH PRN ×7 (00:55→22:07)
[2016-06-24 04:00] VITALS: BP 103/65; PULSE 75; RESP 18; TEMP 97.4; O2SAT 99
[2016-06-24] MEDS: SODIUM CHLOR 0.9% 1000 ML INJ 1,000 ML IV SCH ×3 (04:20→22:10)
[2016-06-24 07:40] VITALS: BP 101/62; PULSE 65; RESP 16; TEMP 97.8; O2SAT 98
[2016-06-24] MEDS: SODIUM CHLORIDE 0.9% FLUSH 10 ML FLUSH IV FLUSH SCH ×2 (08:37→20:46)
[2016-06-24 11:50] VITALS: BP 104/64; PULSE 72; RESP 16; TEMP 96.2; O2SAT 97
[2016-06-24] MEDS ORDERED: guaiFENesin E.R. 600 MG TAB PO ONE (12:00)
--- NOTE | 2016-06-24 12:20 | HHI.PR ---
Subjective Remarks Follow up for acute pancreatitis. Ms. Molina feels somewhat better today. She feels like she can tolerate clear liquids today. No fever, chills. Objective Vitals Vital Signs Date Time Temp Pulse Resp B/P Pulse Ox O2 Delivery O2 Flow Rate FiO2 06/24/16 09:05 16 06/24/16 07:40 97.8 65 16 101/62 98 06/24/16 04:00 97.4 75 18 103/65 99 06/24/16 00:00 98.4 69 20 119/71 99 06/23/16 20:00 96.8 66 18 104/67 97 06/23/16 19:08 Room Air 06/23/16 16:00 97.9 76 18 121/72 93 06/23/16 12:00 97.8 79 18 108/63 92 I/O 06/23/16 06/23/16 06/23/16 06/24/16 06/24/16 06/24/16 07:00 15:00 23:00 07:00 15:00 23:00 Intake Total 612 ml 0 ml 1079 ml 1582 ml Balance 612 ml 0 ml 1079 ml 1582 ml Intake Oral 240 ml 0 ml 0 ml 0 ml IV Total 372 ml 1079 ml 1582 ml # Voids 1 2 1 2 # Bowel Movements 0 0 0 0 Result Diagram: 06/23/16 0609 06/23/16 0609 Imaging Last Impressions Chest X-Ray 06/22/161999 Signed Impressions: Service Date/Time: Wednesday, June 22, 2016 20:27 - CONCLUSION: No acute disease. Shane Mccoy MD Abdomen/Pelvis CT 06/22/161999 Signed Impressions: Service Date/Time: Wednesday, June 22, 2016 22:25 - CONCLUSION: 1. Peripancreatic fluid and stranding likely from pancreatitis. Correlation with amylase/lipase levels recommended. 2. Right basilar atelectasis. 3. Mild hepatic steatosis Shane Mccoy MD Objective Remarks GENERAL: AOX3, NAD. SKIN: Warm and dry. HEAD: Normocephalic. EYES: No scleral icterus. No injection or drainage. NECK: Supple, trachea midline. No JVD or lymphadenopathy. CARDIOVASCULAR: Regular rate and rhythm without murmurs, gallops, or rubs. RESPIRATORY: Breath sounds equal bilaterally. No accessory muscle use. GASTROINTESTINAL: Abdomen soft, Mildly tender to palpation, nondistended. MUSCULOSKELETAL: No cyanosis, or edema. BACK: Nontender without obvious deformity. No CVA tenderness. Procedures None. A/P Problem List: (1) Acute alcoholic pancreatitis ICD Code: K85.2 Status: Acute Assessment and Plan Ms. Molina is a pleasant 46-year-old female with a history of alcoholism, previous pancreatitis who presents to the emergency department on with acute onset of epigastric pain radiating to the back as well as right quadrant pain and later left quadrant abdominal pain. Patient denies any fever or chills. She reports no appetite for food or drinks. Lipase level was above 4000 on admission. - Acute alcoholic pancreatitis - Although likely etiology is alcohol, will obtain abdominal ultrasound to rule out gallbladder pathology. - Decrease fluid to 100cc/hour. - Continue Dilaudid IV 0.5 mg every 4 hours when necessary for pain 3-5 and 1 mg Dilaudid every 3 hours for pain 6-10. - We will initiate clear liquid diet. - Liver/GB US pending. - Alcohol abuse - Counseled patient regarding alcohol abuse and pancreatitis as well as liver disease. - Patient is encouraged to quit alcohol completely. - Cough - will start Mucinex. Full code. Lovenox Problem Qualifiers (1) Acute alcoholic pancreatitis: Qualified Code: K85.20 - Alcohol-induced acute pancreatitis, unspecified complication status Luiz Greene DO June 24, 2016 11:47
--- NOTE | 2016-06-24 14:58 | RADRPT ---
EXAM DATE/TIME: 06/24/2016 11:36 [facility] COMPARISON: CT ABDOMEN & PELVIS W CONTRAST, June 22, 2016, 22:25. US ARM LEFT VENOUS DOPPLER, June 17, 2015, 8:22. INDICATIONS : Right upper quadrant pain. MEDICAL HISTORY : Chronic obstructive pulmonary disease. Cardiovascular disease. High cholesterol. Pancreatitis. SURGICAL HISTORY : Thoracotomy. ENCOUNTER: Initial ACUITY: 1 day PAIN SCORE: 4/10 LOCATION: Right upper quadrant MEASUREMENTS: LIVER: 14.6 cm length COMMON DUCT: 4 mm RIGHT KIDNEY: 10.3 x 4.4 x 3.8 cm FINDINGS: LIVER: There is heterogeneous, increased echotexture without focal lesion or ductal dilatation. There is a s mall amount of ascites adjacent to the liver. COMMON DUCT: No intraluminal mass or stone visualized. GALLBLADDER: No gallstones are identified. There is a small amount of fluid around the liver however, there is a s mall amount of ascites within the upper abdomen. There is no significant gallbladder wall thickening. PANCREAS: The visualized portion of the pancreas demonstrate mildly increased echogenicity. The pancreatic duct is not visualized. RIGHT KIDNEY: No evidence of hydronephrosis, stone, or mass. CONCLUSION: 1. There is heterogeneous echotexture of the liver. There is a small amount of free fluid within the abdomen. There is fluid adjacent to the gallbladder but no significant gallbladder wall thickening or gallstones are present. 2. Heterogeneous echotexture the pancreas. No pseudocyst is seen. Gennaro Cuadra MD on June 24, 2016 at 14:37 Board Certified Radiologist. This report was verified electronically.
[2016-06-24 15:35] VITALS: BP 110/76; PULSE 94; RESP 16; TEMP 96.6; O2SAT 95
[2016-06-24 20:10] VITALS: BP 128/84; PULSE 75; RESP 16; TEMP 98.2; O2SAT 98
[2016-06-24] MEDS: guaiFENesin E.R. 600 MG TAB PO SCH (20:45)
[2016-06-24] MEDS: ENOXAPARIN SODIUM 40 MG/0.4 ML SYRINGE SQ SCH (23:12)
[2016-06-25] VITALS (10 sets, daily range): BP systolic 106–164; BP diastolic 65–88; PULSE 66–115; RESP 16–18; TEMP 97.1–98.9; O2SAT 93–99
[2016-06-25] MEDS: HYDROmorphone HCL PF 1 MG/ML VIAL IV PUSH PRN ×6 (01:14→20:50)
[2016-06-25] MEDS: SODIUM CHLOR 0.9% 1000 ML INJ 1,000 ML IV SCH ×3 (07:48→19:47)
[2016-06-25] MEDS: SODIUM CHLORIDE 0.9% FLUSH 10 ML FLUSH IV FLUSH SCH ×2 (09:00→19:48)
[2016-06-25] MEDS: guaiFENesin E.R. 600 MG TAB PO SCH ×2 (09:07→19:46)
--- NOTE | 2016-06-25 09:59 | HHI.PR ---
Subjective Remarks Follow-up for acute pancreatitis. And complaints of lower abdominal pain. She reports that she cannot void completely when she goes to urinate. She has not had any bowel movement. Denies any chest pain, shortness of breath, fever or chills. Objective Vitals Vital Signs Date Time Temp Pulse Resp B/P Pulse Ox O2 Delivery O2 Flow Rate FiO2 06/25/16 07:13 98.2 73 16 109/65 94 06/25/16 04:10 97.9 67 16 106/66 99 06/25/16 01:40 18 06/25/16 00:10 97.6 66 16 112/68 99 06/24/16 20:10 98.2 75 16 128/84 98 06/24/16 15:35 96.6 94 16 110/76 95 06/24/16 11:50 96.2 72 16 104/64 97 I/O 06/24/16 06/24/16 06/24/16 06/25/16 06/25/16 06/25/16 07:00 15:00 23:00 07:00 15:00 23:00 Intake Total 1582 ml 660 ml 1465 ml 240 ml Balance 1582 ml 660 ml 1465 ml 240 ml Intake Oral 0 ml 660 ml 240 ml 240 ml IV Total 1582 ml 1225 ml Bladder Scan Volume Amount 855 ml # Voids 2 2 1 2 # Bowel Movements 0 0 0 0 Result Diagram: 06/23/16 0609 06/23/16 0609 Imaging Last Impressions Gall Bladder Ultrasound 06/24/16 0000 Signed Impressions: Service Date/Time: Friday, June 24, 2016 11:36 - CONCLUSION: 1. There is heterogeneous echotexture of the liver. There is a small amount of free fluid within the abdomen. There is fluid adjacent to the gallbladder but no significant gallbladder wall thickening or gallstones are present. 2. Heterogeneous echotexture the pancreas. No pseudocyst is seen. Gennaro Cuadra MD Chest X-Ray 06/22/161999 Signed Impressions: Service Date/Time: Wednesday, June 22, 2016 20:27 - CONCLUSION: No acute disease. Shane Mccoy MD Abdomen/Pelvis CT 06/22/161999 Signed Impressions: Service Date/Time: Wednesday, June 22, 2016 22:25 - CONCLUSION: 1. Peripancreatic fluid and stranding likely from pancreatitis. Correlation with amylase/lipase levels recommended. 2. Right basilar atelectasis. 3. Mild hepatic steatosis Shane Mccoy MD Objective Remarks GENERAL: AOX3, NAD. SKIN: Warm and dry. HEAD: Normocephalic. EYES: No scleral icterus. No injection or drainage. NECK: Supple, trachea midline. No JVD or lymphadenopathy. CARDIOVASCULAR: Regular rate and rhythm without murmurs, gallops, or rubs. RESPIRATORY: Breath sounds equal bilaterally. No accessory muscle use. GASTROINTESTINAL: Abdomen soft, Mildly tender to palpation, nondistended. MUSCULOSKELETAL: No cyanosis, or edema. BACK: Nontender without obvious deformity. No CVA tenderness. Procedures None. A/P Problem List: (1) Acute alcoholic pancreatitis ICD Code: K85.2 Status: Acute Assessment and Plan Ms. Molina is a pleasant 46-year-old female with a history of alcoholism, previous pancreatitis who presents to the emergency department on with acute onset of epigastric pain radiating to the back as well as right quadrant pain and later left quadrant abdominal pain. Patient denies any fever or chills. She reports no appetite for food or drinks. Lipase level was above 4000 on admission. - Acute alcoholic pancreatitis - Although likely etiology is alcohol, abdominal ultrasound obtained and shows no acute gallbladder pathology. - Continue fluid to 100cc/hour. - Start regular diet. - Continue acetaminophen for pain 1-4, Percocet 7.5 mg every 6 hours when necessary for pain 5-6. - Dilaudid 1 mg when necessary for breakthrough pain - Urinary retention - Constipation - Urinary retention is likely due to constipation. Bladder scan shows fluid over 800 cc. - Will place a Juarez cath. - Also start Milk of Mag, Dulcolax supp, Fleet Enema PRN for constipation. - Alcohol abuse - Counseled patient regarding alcohol abuse and pancreatitis as well as liver disease. - Patient is encouraged to quit alcohol completely. - Cough - Continue Mucinex. Full code. Lovenox Probable discharge on today or 06/26/2016. Problem Qualifiers (1) Acute alcoholic pancreatitis: Qualified Code: K85.20 - Alcohol-induced acute pancreatitis, unspecified complication status Luiz Greene DO June 25, 2016 09:59
[2016-06-25] MEDS ORDERED: ACETAMINOPHEN 500 MG CPLT PO PRN (10:00)
[2016-06-25] MEDS ORDERED: MAGNESIUM HYDROXIDE SUSP 30 ML CUP PO PRN (10:00)
[2016-06-25] MEDS ORDERED: SOD PHOSPHATE/SOD BIPHOSPHATE (ADULT) ENEMA 133ML RECTAL PRN (10:00)
[2016-06-25] MEDS ORDERED: BISACODYL 10 MG SUPP RECTAL PRN (10:00)
[2016-06-25] MEDS ORDERED: oxyCODONE/ACETAMINOPHEN 7.5 MG/325 MG TAB PO PRN (10:00)
[2016-06-25] MEDS: ENOXAPARIN SODIUM 40 MG/0.4 ML SYRINGE SQ SCH (23:03)
[2016-06-26] VITALS (7 sets, daily range): BP systolic 98–136; BP diastolic 64–78; PULSE 75–90; RESP 16–18; TEMP 97.6–99.3; O2SAT 92–96
[2016-06-26] MEDS: HYDROmorphone HCL PF 1 MG/ML VIAL IV PUSH PRN ×4 (00:01→13:16)
[2016-06-26] MEDS: guaiFENesin E.R. 600 MG TAB PO SCH (08:29)
[2016-06-26] MEDS ORDERED: PANTOPRAZOLE SOD 40 MG DELAYED RELEASE TAB PO SCH ×2 (09:00→21:00)
[2016-06-26] MEDS: SODIUM CHLORIDE 0.9% FLUSH 10 ML FLUSH IV FLUSH SCH (09:00)
--- NOTE | 2016-06-26 09:39 | HHI.PR ---
Subjective Remarks Follow up for acute pancreatitis. Patient complains of burning sensation over her left lower quadrant of the abdomen. No fever, chills. She is tolerating diet well. She also reports that she is feeling swollen in her abdomen and thigh areas. Objective Vitals Vital Signs Date Time Temp Pulse Resp B/P Pulse Ox O2 Delivery O2 Flow Rate FiO2 06/26/16 09:00 98.6 86 18 108/74 92 06/26/16 07:52 97.6 75 18 111/64 93 06/26/16 05:00 99.3 75 16 117/73 95 06/26/16 01:00 98.9 90 16 103/75 96 06/25/16 21:00 98.9 87 16 118/73 97 06/25/16 19:45 80 06/25/16 17:00 98.4 84 16 110/72 93 06/25/16 15:15 97.9 115 18 164/88 96 06/25/16 13:00 97.6 86 16 120/72 96 06/25/16 12:00 97.8 71 16 106/69 97 06/25/16 11:00 97.1 84 16 125/83 96 I/O 06/25/16 06/25/16 06/25/16 06/26/16 06/26/16 06/26/16 07:00 15:00 23:00 07:00 15:00 23:00 Intake Total 240 ml 660 ml 540 ml 1130 ml Output Total 550 ml 750 ml 600 ml Balance 240 ml 110 ml -210 ml 530 ml Intake Oral 240 ml 660 ml 240 ml 240 ml IV Total 300 ml 890 ml Output Urine Total 550 ml 750 ml 600 ml Bladder Scan Volume Amount 855 ml # Voids 2 0 # Bowel Movements 0 0 0 2 Result Diagram: 06/23/16 0609 06/23/16 0609 Imaging Last Impressions Gall Bladder Ultrasound 06/24/16 0000 Signed Impressions: Service Date/Time: Friday, June 24, 2016 11:36 - CONCLUSION: 1. There is heterogeneous echotexture of the liver. There is a small amount of free fluid within the abdomen. There is fluid adjacent to the gallbladder but no significant gallbladder wall thickening or gallstones are present. 2. Heterogeneous echotexture the pancreas. No pseudocyst is seen. Gennaro Cuadra MD Chest X-Ray 06/22/161999 Signed Impressions: Service Date/Time: Wednesday, June 22, 2016 20:27 - CONCLUSION: No acute disease. Shane Mccoy MD Abdomen/Pelvis CT 06/22/161999 Signed Impressions: Service Date/Time: Wednesday, June 22, 2016 22:25 - CONCLUSION: 1. Peripancreatic fluid and stranding likely from pancreatitis. Correlation with amylase/lipase levels recommended. 2. Right basilar atelectasis. 3. Mild hepatic steatosis Shane Mccoy MD Objective Remarks GENERAL: AOX3, NAD. SKIN: Warm and dry. HEAD: Normocephalic. EYES: No scleral icterus. No injection or drainage. NECK: Supple, trachea midline. No JVD or lymphadenopathy. CARDIOVASCULAR: Regular rate and rhythm without murmurs, gallops, or rubs. RESPIRATORY: Breath sounds equal bilaterally. No accessory muscle use. GASTROINTESTINAL: Abdomen soft, Mildly tender to palpation, nondistended. MUSCULOSKELETAL: No cyanosis, or edema. BACK: Nontender without obvious deformity. No CVA tenderness. Procedures None. A/P Problem List: (1) Acute alcoholic pancreatitis ICD Code: K85.2 Status: Acute Assessment and Plan Ms. Molina is a pleasant 46-year-old female with a history of alcoholism, previous pancreatitis who presents to the emergency department on with acute onset of epigastric pain radiating to the back as well as right quadrant pain and later left quadrant abdominal pain. Patient denies any fever or chills. She reports no appetite for food or drinks. Lipase level was above 4000 on admission. - Acute alcoholic pancreatitis - Although likely etiology is alcohol, abdominal ultrasound obtained and shows no acute gallbladder pathology. - Discontinue fluid. - continue Regular diet. - Continue acetaminophen for pain 1-4, Percocet 7.5 mg every 6 hours when necessary for pain 5-6. - Dilaudid 1 mg when necessary for breakthrough pain - Urinary retention - Constipation - Urinary retention is likely due to constipation. Bladder scan shows fluid over 800 cc. - Juarez placed yesterday. We will discontinue today. - She had BM. - Alcohol abuse - Counseled patient regarding alcohol abuse and pancreatitis as well as liver disease. - Patient is encouraged to quit alcohol completely. - Cough - Continue Mucinex. Full code. Lovenox Possible discharge today. Problem Qualifiers (1) Acute alcoholic pancreatitis: Qualified Code: K85.20 - Alcohol-induced acute pancreatitis, unspecified complication status Luiz Greene DO June 26, 2016 9:39 am
[2016-06-26] MEDS ORDERED: MILKSUS PO (13:56)
[2016-06-26] MEDS ORDERED: OXYC1TAB35 PO (13:56)
[2016-06-26] MEDS ORDERED: PANT40TA3 PO (13:56)
--- NOTE | 2016-06-26 14:21 | HHI.DS ---
Discharge Summary Admission Date June 22, 2016 at 9:44 pm Discharge Date: June 26, 2016 Admitting Diagnosis Acute pancreatitis, etoh abuse (1) Acute alcoholic pancreatitis ICD Code: K85.2 Procedures None. Brief History - From Admission Ms. Molina is a 46-year-old female with a history of pancreatitis, alcoholism who presented to the emergency department on 06/22/2016 due to abdominal pain that started day prior to this admission. Patient reported epigastric pain as well as right upper quadrant abdominal pain. Her pain was constant and sharp in nature with a burning sensation and radiated to her back. Her epigastric pain also radiates up substernally with a burning sensation. Pain was 10 out of 10. She had nausea, vomiting yesterday. She has been unable to eat or drink anything and currently does not feel like eating or drinking anything. Denies any fever, chills. Denies any changes in bowel or bladder habits. CBC/BMP: 06/23/16 0609 06/23/16 0609 Imaging Last Impressions Gall Bladder Ultrasound 06/24/16 0000 Signed Impressions: Service Date/Time: Friday, June 24, 2016 11:36 - CONCLUSION: 1. There is heterogeneous echotexture of the liver. There is a small amount of free fluid within the abdomen. There is fluid adjacent to the gallbladder but no significant gallbladder wall thickening or gallstones are present. 2. Heterogeneous echotexture the pancreas. No pseudocyst is seen. Gennaro Cuadra MD Chest X-Ray 06/22/161999 Signed Impressions: Service Date/Time: Wednesday, June 22, 2016 20:27 - CONCLUSION: No acute disease. Shane Mccoy MD Abdomen/Pelvis CT 06/22/161999 Signed Impressions: Service Date/Time: Wednesday, June 22, 2016 22:25 - CONCLUSION: 1. Peripancreatic fluid and stranding likely from pancreatitis. Correlation with amylase/lipase levels recommended. 2. Right basilar atelectasis. 3. Mild hepatic steatosis Shane Mccoy MD PE at Discharge GENERAL: AOX3, NAD. SKIN: Warm and dry. HEAD: Normocephalic. EYES: No scleral icterus. No injection or drainage. NECK: Supple, trachea midline. No JVD or lymphadenopathy. CARDIOVASCULAR: Regular rate and rhythm without murmurs, gallops, or rubs. RESPIRATORY: Breath sounds equal bilaterally. No accessory muscle use. GASTROINTESTINAL: Abdomen soft, Mildly tender to palpation, nondistended. MUSCULOSKELETAL: No cyanosis, or edema. BACK: Nontender without obvious deformity. No CVA tenderness. Pt update on day of discharge Patient is tolerating food better. She complains of burning sensation over her left side of the abdomen. She is reading when I walked into the room in the afternoon and she appeared comfortable. No fever, chills. Hospital Course Ms. Molina is a pleasant 46-year-old female with a history of alcoholism, previous pancreatitis who presents to the emergency department on with acute onset of epigastric pain radiating to the back as well as right quadrant pain and later left quadrant abdominal pain. Patient denies any fever or chills. She reports no appetite for food or drinks. Lipase level was above 4000 on admission. - Acute alcoholic pancreatitis - Although likely etiology is alcohol, abdominal ultrasound obtained and shows no acute gallbladder pathology. - Discontinue fluid. - continue Regular diet. - Continue acetaminophen for pain 1-4, Percocet 7.5 mg every 6 hours when necessary for pain 5-6. - Dilaudid 1 mg when necessary for breakthrough pain - Urinary retention - Constipation - Urinary retention is likely due to constipation. Bladder scan shows fluid over 800 cc. - Juarez Discontinued. - She had BM. - Alcohol abuse - Counseled patient regarding alcohol abuse and pancreatitis as well as liver disease. - Patient is encouraged to quit alcohol completely. - Cough - Continue Mucinex. Pt Condition on Discharge: Good Discharge Disposition: Discharge Home Discharge Time: > 30 minutes Discharge Instructions DIET: Follow Instructions for: As Tolerated, No Restrictions Additional Diet Instructions: Patient is advised to gradually advance diet. Activities you can perform: Regular-No Restrictions Follow up Referrals: PCP Follow-up - 1 Week New Medications: Magnesium Hydroxide Liq (Milk of Magnesia Liq) 400 Mg/5 Ml Susp 30 ML PO DAILY PRN CONSTIPATION #1 Ref 0 BOTTLE Oxycodone-Acetaminophen (Oxycodone-Acetaminophen) 7.5-325 mg Tab 1 TAB PO Q6H PRN PAIN SCALE 5 TO 10 #30 TAB Pantoprazole (Pantoprazole) 40 Mg Tab 40 MG PO BID GERD #60 TAB Continued Medications: Ondansetron Odt (Zofran Odt) 8 Mg Tab 8 MG SL Q8H PRN NAUSEA OR VOMITING #10 Ref 0 TAB Promethazine Supp (Phenergan Supp) 25 Mg Supp 25 MG RECTAL Q4H PRN NAUSEA OR VOMITING #10 Ref 0 SUPP Tetrahydrozoline Opth Drops (Tetrahydrozoline Opth Drops) 0.05 % Soln 1-2 DROP EACH EYE QID PRN Eye redness #1 Ref 0 BOTTLE Discontinued Medications: Cephalexin (Keflex) 500 Mg Cap 500 MG PO Q8H Infection Days 7 Ref 0 CAP Luiz Greene DO June 26, 2016 14:21
== END 2016-06-26 16:30 | disposition home or self-care (01) | DRG 439 ==
LOC: NEPE 19:38 → NEDA 21:44 → N06A 06-23 00:47
PROVIDERS: ADMIT Hospitalist; ATTEND Hospitalist
DX: K85.20 Alcohol induced acute pancreatitis without necrosis or infection (principal); J98.11 Atelectasis; K76.0 Fatty (change of) liver, not elsewhere classified; J44.9 Chronic obstructive pulmonary disease, unspecified; E78.5 Hyperlipidemia, unspecified; F10.10 Alcohol abuse, uncomplicated; K59.00 Constipation, unspecified; R33.9 Retention of urine, unspecified; F17.210 Nicotine dependence, cigarettes, uncomplicated; H54.8 Legal blindness, as defined in USA; Z87.01 Personal history of pneumonia (recurrent); Z98.82 Breast implant status
CPT/HCPCS: 71010; 74177; 76705; 80053; 80307; 81001; 82550; 83605; 83690; 83735; 83880; 84484; 84703; 85025; 85610; 85730; 94664; 96361; 96374; 96375; J1170; J1650; J2270; J2405; J2765; J7030; Q9967

== ENCOUNTER 2016-11-27 01:55 | Emergency (ER) | payer SELFPAY ==
[~2016-11-27] VITALS: Ht 162.6 cm; Wt 38.5 kg
[~2016-11-27 01:55] MED LIST changes: -CEPH-460 PO; +MILKSUS PO; +OXYC1TAB35 PO; +PANT40TA3 PO
[2016-11-27 02:07] VITALS: BP 111/68; PULSE 103; RESP 20; TEMP 98.4; O2SAT 100
[2016-11-27] MEDS ORDERED: MORPHINE SULFATE 4 MG/ML INJ IV PUSH ONE (02:15)
[2016-11-27] MEDS ORDERED: SODIUM CHLORID 0.9% 500 ML INJ 500 ML IV ONE (02:15)
[2016-11-27] MEDS ORDERED: SODIUM CHLORIDE 0.9% FLUSH 10 ML FLUSH IVF PRN (02:15)
[2016-11-27 02:29] LABS: AUTOMATED NEUTROPHIL # 7.3 TH/MM3 (1.8-7.7); BASOPHIL # 0.1 TH/MM3 (0-0.2); BASOPHIL % 0.6 % (0.0-2.0); EOSINOPHIL % 0.4 % (0.0-4.0); HEMATOCRIT 36.7 % (35.0-46.0); HEMO FLAGS DIFF FINAL; LYMPH % 20.6 % (9.0-44.0); LYMPHOCYTE # 2.3 TH/MM3 (1.0-4.8); MEAN CELL VOLUME 101.5 FL (80.0-100.0); MEAN CORPUSCULAR HEMOGLOBIN 35.7 PG (27.0-34.0); MEAN CORPUSCULAR HGB CONC 35.2 % (32.0-36.0); MONO % 11.8 % (0.0-8.0); NEUT % 66.6 % (16.0-70.0); PLATELET COUNT 152 TH/MM3 (150-450); RED BLOOD COUNT 3.61 MIL/MM3 (4.00-5.30); RED CELL DISTRIBUTION WIDTH 14.6 % (11.6-17.2)
[2016-11-27 02:38] LABS: APTT (PATIENT) 41.9 SEC (24.3-30.1); INTERNATIONAL NORMALIZED RATIO 1.1 RATIO; PROTHROMBIN TIME - PATIENT 11.8 SEC (9.8-11.6)
--- NOTE | 2016-11-27 02:44 | RADRPT ---
EXAM DATE/TIME: 11/27/2016 02:35 [facility] COMPARISON: CHEST SINGLE AP, June 22, 2016, 20:27. INDICATIONS : Chest pain and shortness of breath. MEDICAL HISTORY : Pancreatitis. Chronic obstructive pulmonary disease. SURGICAL HISTORY : None. ENCOUNTER: Initial ACUITY: 2 weeks PAIN SCORE: 6/10 LOCATION: chest FINDINGS: PA and lateral views of the chest demonstrate hyperinflation which can be seen with COPD. infiltrate versus nodule left upper lobe. Heart is normal in size. The mediastinal contours are unremarkable. O sseous structures are intact. CONCLUSION: Hyperinflation which can be seen with COPD. Nodule versus infiltrate left upper lobe. Treatment and f ollowup to resolution. Shane Mccoy MD on November 27, 2016 at 2:41 Board Certified Radiologist. This report was verified electronically.
[2016-11-27 03:00] VITALS: BP 105/65; PULSE 86; RESP 20; O2SAT 99
[2016-11-27 03:05] LABS: ALKALINE PHOSPHATASE 183 U/L (45-117); ALT (GPT) 23 U/L (10-53); ANION GAP 11 MEQ/L (5-15); AST (GOT) 34 U/L (15-37); BICARBONATE 25.3 MEQ/L (21.0-32.0); BLOOD UREA NITROGEN 2 MG/DL (7-18); CHLORIDE 94 MEQ/L (98-107); CREATINE KINASE 29 U/L (26-192); GLOMERULAR FILTRATION RATE 187 ML/MIN (>89); SODIUM (NA) 130 MEQ/L (136-145); TOTAL BILIRUBIN ADULT 0.5 MG/DL (0.2-1.0)
[2016-11-27 03:06] LABS: POTASSIUM 2.9 MEQ/L (3.5-5.1)
[2016-11-27] MEDS ORDERED: cefTRIAXone INJ 1,000 MG in SODIUM CHLORIDE 0.9% INJ 100 ML IV ONE (03:15)
[2016-11-27] MEDS ORDERED: POTASSIUM CHLORIDE 10 MEQ CONTROLLED RELEASE TAB PO ONE (03:15)
[2016-11-27] MEDS ORDERED: AZITHROMYCIN INJ 500 MG in SODIUM CHLOR 0.9% 250 ML INJ 250 ML IV ONE (03:15)
[2016-11-27] MEDS ORDERED: ACETAMINOPHEN/HYDROcodone 325 MG/5 MG TAB PO ONE (04:30)
[2016-11-27 05:00] VITALS: BP 103/68; PULSE 92; RESP 20; O2SAT 100
--- NOTE | 2016-11-27 05:54 | PD ---
HPI Chief Complaint: Chest Pain Time Seen by Provider: 02:05 Travel History International Travel<30 days: No Contact w/Intl Traveler<30days: No Traveled to known affect area: No History of Present Illness HPI Patient is a 46 year old female who comes in complaining of left lateral chest pain. She says she has had this pain for the past week. She says it started on the right side and is now on the left side. She says she is concerned that she has pneumonia. She reports cough and SOB. She says she has had fevers, but she has not taken her temperature. She is a smoker. She does report slight weight loss. PFSH Past Medical History Hx Anticoagulant Therapy: Yes (COUMADIN 5MG PO DAILY) Asthma: No Autoimmune Disease: No Blood Disorders: No Anxiety: No Depression: No Heart Rhythm Problems: No Cancer: No Cardiovascular Problems: Yes High Cholesterol: Yes Chemotherapy: No Chest Pain: No Congestive Heart Failure: No COPD: No Cerebrovascular Accident: No Diabetes: No Diminished Hearing: No Endocrine: No Gastrointestinal Disorders: No Genitourinary: No Headaches: No Hepatitis: No Hiatal Hernia: No Heparin Induced Thrombocytopen: No Hypertension: No Immune Disorder: No Implanted Vascular Access Dvce: No Musculoskeletal: No Neurologic: Yes (NEUROSYPHYLLIS ) Psychiatric: No Reproductive: No Respiratory: Yes (copd) Immunizations Current: Yes Migraines: No Pancreatitis: Yes Radiation Therapy: No Seizures: No Sickle Cell Disease: No Sleep Apnea: No Thyroid Disease: No ?: Not : 2 Para: 2 Past Surgical History Abdominal Surgery: No AICD: No Arteriovenous Shunt: No Body Medical Devices: BREAST IMPLANTS Cardiac Surgery: No Ear Surgery: No Endocrine Surgery: No Eye Surgery: No Genitourinary Surgery: No Gynecologic Surgery: Yes (ENDOMETRIOSIS - LAP 1989; BREAST IMPLANTS) Insulin Pump: No Joint Replacement: No Neurologic Surgery: No Oral Surgery: Yes Pacemaker: No Thoracic Surgery: Yes (thoracotomy) Tonsillectomy: Yes Other Surgery: Yes (tonsilectomy ) Social History Alcohol Use: Yes (2 beers per day) Tobacco Use: Yes (one pack per day) Substance Use: No Allergies-Medications (Allergen,Severity, Reaction): Coded Allergies: penicillin G (Unverified Allergy, Severe, Hives, 09/22/16) Reported Meds & Prescriptions Reported Meds & Active Scripts Active Milk of Magnatilio Liq (Magnesium Hydroxide) 400 Mg/5 Ml Susp 30 Ml PO DAILY PRN Pantoprazole (Pantoprazole Sodium) 40 Mg Tab 40 Mg PO BID Oxycodone-Acetaminophen 7.5-325 mg Tab 1 Tab PO Q6H PRN Phenergan Supp (Promethazine HCl) 25 Mg Supp 25 Mg RECTAL Q4H PRN Zofran Odt (Ondansetron Odt) 8 Mg Tab 8 Mg SL Q8H PRN Reported Tetrahydrozoline Opth Drops 0.05 % Soln 1-2 Drop EACH EYE QID PRN Review of Systems Except as stated in HPI: all other systems reviewed are Neg General / Constitutional: Positive: Fever, Chills HENT: No: Headaches, Lightheadedness Cardiovascular: Positive: Chest Pain or Discomfort Respiratory: Positive: Cough, Shortness of Breath Gastrointestinal: No: Nausea, Vomiting Musculoskeletal: No: Myalgias Skin: No Rash, No Change in Pigmentation Neurologic: No: Weakness, Dizziness Physical Exam Narrative GENERAL: Awake and alert, in no acute distress. SKIN: Focused skin assessment warm/dry. HEAD: Atraumatic. Normocephalic. EYES: Pupils equal and round. No scleral icterus. ENT: Mucous membranes pink and moist. NECK: Trachea midline. No JVD. CARDIOVASCULAR: Regular rate and rhythm. No murmur appreciated. RESPIRATORY: No accessory muscle use. Clear to auscultation. Breath sounds equal bilaterally. GASTROINTESTINAL: Abdomen soft, non-tender, nondistended. MUSCULOSKELETAL: No obvious deformities. No clubbing. No cyanosis. No edema. NEUROLOGICAL: Awake and alert. No obvious cranial nerve deficits. Motor grossly within normal limits. Normal speech. PSYCHIATRIC: Appropriate mood and affect; insight and judgment normal. Data Data Last Documented VS Vital Signs Date Time Temp Pulse Resp B/P (MAP) Pulse Ox O2 Delivery O2 Flow Rate FiO2 11/27/16 05:00 92 20 103/68 (80) 100 11/27/16 02:15 Room Air 11/27/16 02:07 98.4 Orders Orders Electrocardiogram (11/27/16 02:06) Ckmb (Isoenzyme) Profile (11/27/16 02:06) Complete Blood Count With Diff (11/27/16 02:06) Comprehensive Metabolic Panel (11/27/16 02:06) Prothrombin Time / Inr (Pt) (11/27/16 02:06) Act Partial Throm Time (Ptt) (11/27/16 02:06) Troponin I (11/27/16 02:06) Ecg Monitoring (11/27/16 02:06) Bilateral Bp Monitoring (11/27/16 02:06) Iv Access Insert/Monitor (11/27/16 02:06) Oximetry (11/27/16 02:06) Oxygen Administration (11/27/16 02:06) Morphine Inj (Morphine Inj) (11/27/16 02:15) Sodium Chloride 0.9% Flush (Ns Flush) (11/27/16 02:15) Sodium Chlorid 0.9% 500 Ml Inj (Ns 500 M (11/27/16 02:15) Chest, Pa & Lat (11/27/16 02:06) Ceftriaxone Inj (Rocephin Inj) (11/27/16 03:15) Azithromycin Inj (Zithromax Inj) (11/27/16 03:15) Potassium Chloride (Kcl) (11/27/16 03:15) Acetamin-Hydrocod 325-5 Mg ([place] 5-325 (11/27/16 04:30) Labs Laboratory Tests Test 11/27/16 02:15 White Blood Count 11.0 TH/MM3 Red Blood Count 3.61 MIL/MM3 Hemoglobin 12.9 GM/DL Hematocrit 36.7 % Mean Corpuscular Volume 101.5 FL Mean Corpuscular Hemoglobin 35.7 PG Mean Corpuscular Hemoglobin Concent 35.2 % Red Cell Distribution Width 14.6 % Platelet Count 152 TH/MM3 Mean Platelet Volume 7.8 FL Neutrophils (%) (Auto) 66.6 % Lymphocytes (%) (Auto) 20.6 % Monocytes (%) (Auto) 11.8 % Eosinophils (%) (Auto) 0.4 % Basophils (%) (Auto) 0.6 % Neutrophils # (Auto) 7.3 TH/MM3 Lymphocytes # (Auto) 2.3 TH/MM3 Monocytes # (Auto) 1.3 TH/MM3 Eosinophils # (Auto) 0.0 TH/MM3 Basophils # (Auto) 0.1 TH/MM3 CBC Comment DIFF FINAL Differential Comment Prothrombin Time 11.8 SEC Prothromb Time International Ratio 1.1 RATIO Activated Partial Thromboplast Time 41.9 SEC Blood Urea Nitrogen 2 MG/DL Creatinine 0.37 MG/DL Random Glucose 126 MG/DL Total Protein 6.6 GM/DL Albumin 2.5 GM/DL Calcium Level 7.7 MG/DL Alkaline Phosphatase 183 U/L Aspartate Amino Transf (AST/SGOT) 34 U/L Alanine Aminotransferase (ALT/SGPT) 23 U/L Total Bilirubin 0.5 MG/DL Sodium Level 130 MEQ/L Potassium Level 2.9 MEQ/L Chloride Level 94 MEQ/L Carbon Dioxide Level 25.3 MEQ/L Anion Gap 11 MEQ/L Estimat Glomerular Filtration Rate 187 ML/MIN Total Creatine Kinase 29 U/L Troponin I LESS THAN 0.02 NG/ML MDM Medical Decision Making Medical Screen Exam Complete: Yes Emergency Medical Condition: Yes Medical Record Reviewed: Yes Interpretation(s) ECG shows normal sinus rhythm at 99, no ST elevation or depression, normal intervals Differential Diagnosis Pneumonia versus ACS versus pneumothorax versus costochondritis Narrative Course Patient is a 46-year-old female comes in complaining of chest pain. She says it feels like when she had pneumonia before. Exam shows no acute abnormalities. IV established, labs sent. Labs show a potassium of 2.9. This was replaced. Chest x-ray shows an upper lobe pneumonia. Patient given Rocephin and azithromycin. X-ray report says pneumonia versus mass. She is informed of these results and advised to follow-up for repeat testing. She voices understanding of this. Patient given pain medicine. She'll be discharged with prescription for antibiotics. Advised to follow-up with her doctor. Advised to return to the ED as needed for any worsening symptoms. Diagnosis Primary Impression: Pneumonia Qualified Codes: J18.1 - Lobar pneumonia, unspecified organism Referrals: [facility] call for appointment Patient Instructions: Bacterial Pneumonia (ED), General Instructions Additional Instructions: Take all of your antibiotic. He needs to follow-up and have a repeat x-ray done to make sure you do not have a mass. Return to the ED as needed for any worsening symptoms. Scripts Azithromycin (Zithromax Z-Wolf) 250 Mg Dspk 250 MG PO DIRECTED for Infection, #1 DSPK 0 Refills 500 MG (2 tabs) day 1, then 1 tab days 2-5. Prov: Kayley Aguillon MD 11/27/16 Disposition: 01 DISCHARGE HOME Condition: Stable Kayley Aguillon MD Nov 27, 2016 05:54
[2016-11-27] MEDS ORDERED: ZITHTAB PO (06:02)
--- NOTE | 2016-11-27 21:23 | EKG ---
Date Performed: 11/27/2016 Time Performed: 02:15:25 PTAGE: 46 years EKG: Sinus rhythm POSSIBLE RIGHT VENTRICULAR CONDUCTION DELAY SEPTAL MYOCARDIAL INFARCTION ABNORMAL ECG PREVIOUS TRACING : 05/09/2016 19.11 Compared to prior tracing no significant change DOCTOR: Korey Villavicencio Interpretating Date/Time 11/27/2016 21:22:45
== END 2016-11-27 06:32 | disposition home or self-care (01) ==
LOC: NEPC 01:55
DX: J18.1 Lobar pneumonia, unspecified organism (principal); F17.210 Nicotine dependence, cigarettes, uncomplicated; Z79.01 Long term (current) use of anticoagulants; Z88.0 Allergy status to penicillin
CPT/HCPCS: 71020; 80053; 82550; 84484; 85025; 85610; 85730; 93005; 96361; 96374; 96375; 99285; J0456; J0696; J2270; J7040; J7050

== ENCOUNTER 2016-12-10 01:34 | Inpatient (IN) | payer MEDICARE ==
[~2016-12-10] VITALS: Ht 162.6 cm; Wt 39.0 kg
[2016-12-10] VITALS (13 sets, daily range): BP systolic 83–131; BP diastolic 56–74; PULSE 80–118; RESP 15–24; TEMP 96.2–98.6; O2SAT 94–100
[~2016-12-10 01:34] MED LIST changes: +ZITHTAB PO
[2016-12-10] MEDS ORDERED: ONDANSETRON HCL 4 MG/2 ML VIAL IV PUSH PRN ×2 (03:00→05:15)
[2016-12-10] MEDS ORDERED: LEVOFLOXACIN 750 MG PREMIX INJ 150 ML IV ONE (03:00)
[2016-12-10] MEDS ORDERED: MORPHINE SULFATE 4 MG/ML INJ IV PUSH ONE (03:00)
[2016-12-10] MEDS ORDERED: CEFEPIME INJ 2,000 MG in SODIUM CHLORIDE 0.9% INJ 100 ML IV ONE (03:00)
[2016-12-10] MEDS ORDERED: SODIUM CHLORIDE 0.9% FLUSH 10 ML FLUSH IVF PRN (03:00)
--- NOTE | 2016-12-10 03:28 | PD ---
HPI . Dyspnea Chief Complaint: Respiratory Distress Time Seen by Provider: 02:51 Travel History International Travel<30 days: No Contact w/Intl Traveler<30days: No Traveled to known affect area: No History of Present Illness HPI This patient presents with the chief complaint of dyspnea. She is also complaining with left-sided chest pain. This at this is been going on for quite a while. She states that it became acutely worse today. She describes a clicking sensation in the left side of her chest. Symptoms are exacerbated by movement. She also has a cough which is productive. She is unable to describe the sputum because she swallows it. She was treated recently for pneumonia with Rocephin and Zithromax. She states her symptoms have not improved with this treatment. PFSH Past Medical History Hx Anticoagulant Therapy: Yes (COUMADIN 5MG PO DAILY) Asthma: No Autoimmune Disease: No Blood Disorders: No Anxiety: No Depression: No Heart Rhythm Problems: No Cancer: No Cardiovascular Problems: Yes High Cholesterol: Yes Chemotherapy: No Chest Pain: No Congestive Heart Failure: No COPD: No Cerebrovascular Accident: No Diabetes: No Diminished Hearing: No Endocrine: No Gastrointestinal Disorders: No Genitourinary: No Headaches: No Hepatitis: No Hiatal Hernia: No Heparin Induced Thrombocytopen: No Hypertension: No Immune Disorder: No Implanted Vascular Access Dvce: No Musculoskeletal: No Neurologic: Yes (NEUROSYPHYLLIS ) Psychiatric: No Reproductive: No Respiratory: Yes (copd) Immunizations Current: Yes Migraines: No Pancreatitis: Yes Radiation Therapy: No Seizures: No Sickle Cell Disease: No Sleep Apnea: No Thyroid Disease: No Tetanus Vaccination: Unknown Influenza Vaccination: No ?: Not LMP: irrgular periods : 2 Para: 2 Past Surgical History Abdominal Surgery: No AICD: No Arteriovenous Shunt: No Body Medical Devices: BREAST IMPLANTS Cardiac Surgery: No Ear Surgery: No Endocrine Surgery: No Eye Surgery: No Genitourinary Surgery: No Gynecologic Surgery: Yes (ENDOMETRIOSIS - LAP 1989; BREAST IMPLANTS) Insulin Pump: No Joint Replacement: No Neurologic Surgery: No Oral Surgery: Yes Pacemaker: No Thoracic Surgery: Yes (thoracotomy) Tonsillectomy: Yes Other Surgery: Yes (tonsilectomy ) Social History Alcohol Use: Yes (2 beers per day) Tobacco Use: Yes (one pack per day) Substance Use: No Allergies-Medications (Allergen,Severity, Reaction): Coded Allergies: penicillin G (Unverified Allergy, Severe, Hives, 09/22/16) Reported Meds & Prescriptions Reported Meds & Active Scripts Active Zithromax Z-Wolf (Azithromycin) 250 Mg Dspk 250 Mg PO DIRECTED 500 MG (2 tabs) day 1, then 1 tab days 2-5. Milk of Magnesia Liq (Magnesium Hydroxide) 400 Mg/5 Ml Susp 30 Ml PO DAILY PRN Pantoprazole (Pantoprazole Sodium) 40 Mg Tab 40 Mg PO BID Oxycodone-Acetaminophen 7.5-325 mg Tab 1 Tab PO Q6H PRN Phenergan Supp (Promethazine HCl) 25 Mg Supp 25 Mg RECTAL Q4H PRN Zofran Odt (Ondansetron Odt) 8 Mg Tab 8 Mg SL Q8H PRN Reported Tetrahydrozoline Opth Drops 0.05 % Soln 1-2 Drop EACH EYE QID PRN Review of Systems Except as stated in HPI: all other systems reviewed are Neg General / Constitutional: No: Fever, Chills Cardiovascular: Positive: Chest Pain or Discomfort Respiratory: Positive: Cough, Shortness of Breath Physical Exam Narrative GENERAL: Patient is awake and alert. She is very thin. SKIN: warm/dry. HEAD: Normocephalic. Atraumatic. EYES: Pupils equal and round. No scleral icterus. No injection or drainage. ENT: No nasal bleeding or discharge. Mucous membranes pink and moist. NECK: Trachea midline. Full range of motion without pain.. CARDIOVASCULAR: Regular rate and rhythm. RESPIRATORY: No accessory muscle use. Rhonchi in the left base. Left chest wall tenderness. GASTROINTESTINAL: Abdomen soft. Nontender. Bowel sounds present. Nondistended. MUSCULOSKELETAL: No obvious deformities. NEUROLOGICAL: Awake and alert. No obvious cranial nerve deficits. Motor grossly within normal limits. Normal speech. PSYCHIATRIC: Appropriate mood and affect; insight and judgment normal. Data Data Last Documented VS Vital Signs Date Time Temp Pulse Resp B/P (MAP) Pulse Ox O2 Delivery O2 Flow Rate FiO2 12/10/16 02:05 93 Room Air 12/10/16 01:37 98.0 118 20 131/65 (87) Orders Orders Basic Metabolic Panel (Bmp) (12/10/16 02:51) Complete Blood Count With Diff (12/10/16 02:51) Lactic Acid Sepsis Protocol (12/10/16 02:51) Blood Culture (12/10/16 02:51) Iv Access Insert/Monitor (12/10/16 02:51) Sodium Chloride 0.9% Flush (Ns Flush) (12/10/16 03:00) Levofloxacin 750 Mg Premix Inj (Levaquin (12/10/16 03:00) Ondansetron Inj (Zofran Inj) (12/10/16 03:00) Cefepime Inj (Maxipime Inj) (12/10/16 03:00) Morphine Inj (Morphine Inj) (12/10/16 03:00) Ct Thorax/ Chest W Iv Contrast (12/10/16 02:51) Iohexol 350 Inj (Omnipaque 350 Inj) (12/10/16 03:51) Sodium Chlor 0.9% 1000 Ml Inj (Ns 1000 M (12/10/16 04:15) Sodium Chlor 0.9% 1000 Ml Inj (Ns 1000 M (12/10/16 04:15) Admit Order (Ed Use Only) (12/10/16 ) Vital Signs (Adult) Q4H (12/10/16 04:39) Diet Heart Healthy (12/10/16 Breakfast) Activity Oob With Assistance (12/10/16 04:39) Notify Dr: Other (12/10/16 04:39) Labs Laboratory Tests Test 12/10/16 02:05 12/10/16 03:20 White Blood Count 5.8 TH/MM3 Red Blood Count 4.53 MIL/MM3 Hemoglobin 15.8 GM/DL Hematocrit 45.7 % Mean Corpuscular Volume 101.0 FL Mean Corpuscular Hemoglobin 34.9 PG Mean Corpuscular Hemoglobin Concent 34.5 % Red Cell Distribution Width 15.1 % Platelet Count 345 TH/MM3 Mean Platelet Volume 6.9 FL Neutrophils (%) (Auto) 41.1 % Lymphocytes (%) (Auto) 46.0 % Monocytes (%) (Auto) 5.9 % Eosinophils (%) (Auto) 2.8 % Basophils (%) (Auto) 4.2 % Neutrophils # (Auto) 2.4 TH/MM3 Lymphocytes # (Auto) 2.7 TH/MM3 Monocytes # (Auto) 0.3 TH/MM3 Eosinophils # (Auto) 0.2 TH/MM3 Basophils # (Auto) 0.2 TH/MM3 CBC Comment DIFF FINAL Differential Comment Blood Urea Nitrogen 3 MG/DL Creatinine 0.49 MG/DL Random Glucose 82 MG/DL Calcium Level 8.7 MG/DL Sodium Level 132 MEQ/L Potassium Level 3.8 MEQ/L Chloride Level 95 MEQ/L Carbon Dioxide Level 24.2 MEQ/L Anion Gap 13 MEQ/L Estimat Glomerular Filtration Rate 135 ML/MIN Lactic Acid Level 2.4 mmol/L MDM Medical Decision Making Medical Screen Exam Complete: Yes Emergency Medical Condition: Yes Medical Record Reviewed: Yes (chest x-ray done on 11/27 showed an opacification in the left upper lobe. Differential diagnosis was mass versus infiltrate.) Differential Diagnosis Differential diagnosis of chest pain includes but is not limited to musculoskeletal pain, pulmonary embolism, acute coronary syndrome, pneumonia, pleurisy Narrative Course This patient presents with chest pain, shortness of breath and cough. She has rhonchi left base. She had a chest x-ray done on 11/27. I have ordered a CT of her chest tonight. CT chest>>Left lower lobe infiltrate. CBC & BMP Diagram 12/10/16 02:05 Calcium Level 8.7 LA 2.4 This patient has pneumonia but does not meet sepsis criteria. She has, however , failed outpatient treatment. Sepsis Criteria SIRS Criteria (2 or more): Heart rate over 90 Sepsis Criteria (SIRS+source): Infect source susp/known Physician Communication Physician Communication Dr. La will admit Diagnosis Primary Impression: Pneumonia Qualified Codes: J18.1 - Lobar pneumonia, unspecified organism Admitting Information Admitting Physician Requests: Admit Condition: Stable Angi Bray MD Dec 10, 2016 03:28
[2016-12-10 03:40] LABS: AUTOMATED NEUTROPHIL # 2.4 TH/MM3 (1.8-7.7); BASOPHIL # 0.2 TH/MM3 (0-0.2); BASOPHIL % 4.2 % (0.0-2.0); EOSINOPHIL # 0.2 TH/MM3 (0-0.4); EOSINOPHIL % 2.8 % (0.0-4.0); HEMATOCRIT 45.7 % (35.0-46.0); HEMOGLOBIN 15.8 GM/DL (11.6-15.3); LYMPHOCYTE # 2.7 TH/MM3 (1.0-4.8); MEAN CORPUSCULAR HEMOGLOBIN 34.9 PG (27.0-34.0); MEAN CORPUSCULAR HGB CONC 34.5 % (32.0-36.0); MEAN PLATELET VOLUME 6.9 FL (7.0-11.0); MONO % 5.9 % (0.0-8.0); MONOCYTE # 0.3 TH/MM3 (0-0.9); NEUT % 41.1 % (16.0-70.0); PLATELET COUNT 345 TH/MM3 (150-450); RED BLOOD COUNT 4.53 MIL/MM3 (4.00-5.30); RED CELL DISTRIBUTION WIDTH 15.1 % (11.6-17.2); WHITE BLOOD COUNT 5.8 TH/MM3 (4.0-11.0)
[2016-12-10] MEDS ORDERED: IOHEXOL 350 MG/ML 10 ML VIAL (for RAD DIAG) IVCONTRAST ONE (03:51)
[2016-12-10 04:01] LABS: LACTIC ACID SEPSIS PROTOCOL 2.4 mmol/L (0.4-2.0)
[2016-12-10 04:09] LABS: BICARBONATE 24.2 MEQ/L (21.0-32.0); CALCIUM 8.7 MG/DL (8.5-10.1); CREATININE 0.49 MG/DL (0.50-1.00)
[2016-12-10] MEDS ORDERED: SODIUM CHLOR 0.9% 1000 ML INJ 1,000 ML IV ONE ×2 (04:15)
--- NOTE | 2016-12-10 04:18 | RADRPT ---
EXAM DATE/TIME: 12/10/2016 03:50 [facility] COMPARISON: CT ABDOMEN & PELVIS W CONTRAST, June 22, 2016, 22:25. CTA ABDOMEN & PELVIS W 3D RECON, May 09, 2016 , 19:35. INDICATIONS : Shortness of breath with left sided chest pain. IV CONTRAST: 75 cc Omnipaque 350 (iohexol) IV RADIATION DOSE: 3.34 CTDIvol (mGy) MEDICAL HISTORY : Chronic obstructive pulmonary disease. SURGICAL HISTORY : Tonsillectomy. Thoracotomy. ENCOUNTER: Initial ACUITY: 1 week PAIN SCALE: 10/10 LOCATION: Left chest TECHNIQUE: Volumetric scanning of the chest was performed. Using automated exposure control and adjustment of t he mA and/or kV according to patient size, radiation dose was kept as low as reasonably achievable to obtain optimal diagnostic quality images. DICOM format image data is available electronically for review and comparison. Follow-up recommendations for detected pulmonary nodules are based at a minimum on nodule size and pa tient risk factors according to Fleischner Society Guidelines. FINDINGS: LUNGS: There is airspace infiltrate in the medial left lung base. There is mild scarring or atelectasis in t he right middle lobe which appears to have been present previously. Minimal right apical pleural-pare nchymal scarring is noted. Mild emphysematous changes present. PLEURA: There is no pleural thickening or pleural effusion. MEDIASTINUM: The heart and great vessels demonstrate no acute abnormality. There is no mediastinal or hilar lymph adenopathy. AXILLAE: Within normal limits. No lymphadenopathy. SKELETAL: Within normal limits for patient age. MISCELLANEOUS: The visualized upper abdominal organs demonstrate no acute abnormality. CONCLUSION: Left lower lobe infiltrate. Cezar Morrow MD on December 10, 2016 at 4:10 Board Certified Radiologist. This report was verified electronically.
[2016-12-10] MEDS ORDERED: ACETAMINOPHEN 325 MG TAB PO PRN (05:15)
[2016-12-10] MEDS ORDERED: RESP: ALBUTEROL 2.5 MG/IPRATROPIUM 0.5 MG NEB (PRN) INH (05:15)
[2016-12-10] MEDS ORDERED: SODIUM CHLORIDE 0.9% FLUSH 10 ML FLUSH IV FLUSH PRN (05:15)
[2016-12-10] MEDS ORDERED: ATRO1SOL11 EACH EYE (06:04)
[2016-12-10] MEDS ORDERED: PRED1SUS EACH EYE (06:04)
--- NOTE | 2016-12-10 06:14 | HHI.HP ---
HPI Service [facility] Primary Care Physician No Primary Care Physician Admission Diagnosis pneumonia Diagnoses: Travel History International Travel<30 Days: No Contact w/Intl Traveler <30 Da: No Traveled to Known Affected Are: No History of Present Illness 46-year-old female presents to the emergency department with continued cough, pleuritic chest pain and shortness of breath. The patient was seen in the emergency department on 11/27 where she was given Rocephin and prescribed a Z- Wolf for her left upper lobe infiltrate. The patient was compliant with her antibiotics and completed the course of azithromycin. She reports that during the past week her fever broke however she continues to have shortness of breath and left-sided pleuritic chest pain. She reports significant coughing that is very productive. CT done in the emergency department was significant for a left lower lobe infiltrate. 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 Father of an SD. Social History One pack per day 31 years. Alcohol 2-3 times per week with a maximum of 6 beers per session. Denies marijuana and other illicit drugs. Physical Exam Vital Signs Vital Signs Date Time Temp Pulse Resp B/P (MAP) Pulse Ox O2 Delivery O2 Flow Rate FiO2 12/10/16 05:28 88 22 100 Nasal Cannula 2.00 12/10/16 02:05 93 Room Air 12/10/16 01:37 98.0 118 20 131/65 (87) 97 Physical Exam GENERAL: Frail appearing woman lying in bed SKIN: No rashes, ecchymoses or lesions. Cool and dry. HEAD: Atraumatic. Normocephalic. No temporal or scalp tenderness. EYES: Pupils equal round and reactive. Extraocular motions intact. No scleral icterus. No injection or drainage. ENT: Nose without bleeding, purulent drainage or septal hematoma. Throat without erythema, tonsillar hypertrophy or exudate. Uvula midline. Airway patent. Poor dentition. NECK: Trachea midline. No JVD or lymphadenopathy. Supple, nontender, no meningeal signs. CARDIOVASCULAR: Regular rate and rhythm without murmurs, gallops, or rubs. RESPIRATORY: Scattered rhonchi throughout left lower lung vargas. No wheezing. GASTROINTESTINAL: Abdomen soft, non-tender, nondistended. No hepato-splenomegaly , or palpable masses. No guarding. MUSCULOSKELETAL: Extremities without clubbing, cyanosis, or edema. No joint tenderness, effusion, or edema noted. No calf tenderness. Negative Homans sign bilaterally. NEUROLOGICAL: Awake and alert. Cranial nerves II through XII intact. Motor and sensory grossly within normal limits. Five out of 5 muscle strength in all muscle groups. Normal speech. Laboratory Laboratory Tests Test 12/10/16 02:05 12/10/16 03:20 White Blood Count 5.8 Red Blood Count 4.53 Hemoglobin 15.8 Hematocrit 45.7 Mean Corpuscular Volume 101.0 Mean Corpuscular Hemoglobin 34.9 Mean Corpuscular Hemoglobin Concent 34.5 Red Cell Distribution Width 15.1 Platelet Count 345 Mean Platelet Volume 6.9 Neutrophils (%) (Auto) 41.1 Lymphocytes (%) (Auto) 46.0 Monocytes (%) (Auto) 5.9 Eosinophils (%) (Auto) 2.8 Basophils (%) (Auto) 4.2 Neutrophils # (Auto) 2.4 Lymphocytes # (Auto) 2.7 Monocytes # (Auto) 0.3 Eosinophils # (Auto) 0.2 Basophils # (Auto) 0.2 CBC Comment DIFF FINAL Differential Comment Blood Urea Nitrogen 3 Creatinine 0.49 Random Glucose 82 Calcium Level 8.7 Sodium Level 132 Potassium Level 3.8 Chloride Level 95 Carbon Dioxide Level 24.2 Anion Gap 13 Estimat Glomerular Filtration Rate 135 Lactic Acid Level 2.4 Date/Time Source Procedure Growth Status 12/10/16 02:20 Blood Peripheral Aerobic Blood Culture Pending Received 12/10/16 02:20 Blood Peripheral Anaerobic Blood Culture Pending Received Result Diagram: 12/10/1620412/10/16204 Caprini VTE Risk Assessment Caprini VTE Risk Assessment: No/Low Risk (score <= 1) Caprini Risk Assessment Model Point Value = 1 Point Value = 2 Point Value = 3 Point Value = 5 Age 41-60 Minor surgery BMI > 25 kg/m2 Swollen legs Varicose veins or History of unexplained or recurrent spontaneous Oral contraceptives or hormone replacement Sepsis (< 1 month) Serious lung disease, including pneumonia (< 1 month) Abnormal pulmonary function Acute myocardial infarction Congestive heart failure (< 1 month) History of inflammatory bowel disease Medical patient at bed rest Age 61-74 Arthroscopic surgery Major open surgery (> 45 min) Laparoscopic surgery (> 45 min) Malignancy Confined to bed (> 72 hours) Immobilizing plaster cast Central venous access Age >= 75 History of VTE Family history of VTE Factor V Leiden Prothrombin [id number] Lupus anticoagulant Anticardiolipin antibodies Elevated serum homocysteine Heparin-induced thrombocytopenia Other congenital or acquired thrombophilia Stroke (< 1 month) Elective arthroplasty Hip, pelvis, or leg fracture Acute spinal cord injury (< 1 month) Prophylaxis Regimen Total Risk Factor Score Risk Level Prophylaxis Regimen 0-1 Low Early ambulation 2 Moderate Order ONE of the following: *Sequential Compression Device (SCD) *Heparin 5000 units SQ BID 3-4 Higher Order ONE of the following medications: *Heparin 5000 units SQ TID *Enoxaparin/Lovenox 40 mg SQ daily (WT < 150 kg, CrCl > 30 mL/min) *Enoxaparin/Lovenox 30 mg SQ daily (WT < 150 kg, CrCl > 10-29 mL/min) *Enoxaparin/Lovenox 30 mg SQ BID (WT < 150 kg, CrCl > 30 mL/min) AND/OR *Sequential Compression Device (SCD) 5 or more Highest Order ONE of the following medications: *Heparin 5000 units SQ TID (Preferred with Epidurals) *Enoxaparin/Lovenox 40 mg SQ daily (WT < 150 kg, CrCl > 30 mL/min) *Enoxaparin/Lovenox 30 mg SQ daily (WT < 150 kg, CrCl > 10-29 mL/min) *Enoxaparin/Lovenox 30 mg SQ BID (WT < 150 kg, CrCl > 30 mL/min) AND *Sequential Compression Device (SCD) Assessment and Plan Assessment and Plan 46-year-old female with a past medical history of COPD admitted for pneumonia after failing outpatient treatment 1. Pneumonia Patient failed Rocephin 1 and completion of Z-Wolf Continue Levaquin and cefepime Sputum culture pending Blood cultures pending Lactic acid elevated at 2.9, monitor for signs of sepsis. Repeat lactic acid pending Normal saline at 65 cc/hour 2. COPD DuoNeb's Wean oxygen for an oxygen saturation greater than 92% 3. 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 Alcohol abuse CIWA protocol FEN Regular diet Electrolytes: Monitor and replete when necessary SCDs Fluids as above Physician Certification 2 Midnight Certification Type: Admission for Inpatient Services Order for Inpatient Services The services are ordered in accordance with Medicare regulations or non- Medicare payer requirements, as applicable. In the case of services not specified as inpatient-only, they are appropriately provided as inpatient services in accordance with the 2-midnight benchmark. Estimated LOS (days): 3 3 days is the estimated time the patient will need to remain in the hospital, assuming treatment plan goals are met and no additional complications. Post-Hospital Plan: Home Lilli La MD Dec 10, 2016 06:14
[2016-12-10] MEDS ORDERED: LORazepam 2 MG/ML VIAL IV PUSH PRN ×4 (06:15)
[2016-12-10] MEDS ORDERED: FLUMAZENIL 0.5 MG/5 ML VIAL IV PUSH PRN (06:15)
[2016-12-10] MEDS ORDERED: LORazepam 2 MG TAB PO PRN (06:15)
[2016-12-10] MEDS ORDERED: LORazepam 1 MG TAB PO PRN (06:15)
[2016-12-10] MEDS: RESP: ALBUTEROL 2.5 MG/IPRATROPIUM 0.5 MG NEB (SCH) INH ×3 (08:15→20:38)
--- NOTE | 2016-12-10 10:54 | HHI.PR ---
Subjective Remarks in no acute distress. but complaining of left-sided pleuritic chest pain. afebrile. somewhat anxious. d/w the RN. Objective Vitals Vital Signs Date Time Temp Pulse Resp B/P (MAP) Pulse Ox O2 Delivery O2 Flow Rate FiO2 12/10/16 09:14 96 Nasal Cannula 2.00 12/10/16 07:16 96.2 82 20 97/64 (75) 94 12/10/16 06:05 84 22 97/67 (77) 100 2.00 12/10/16 05:28 88 22 100 Nasal Cannula 2.00 12/10/16 05:00 102 20 92/65 (74) 98 Nasal Cannula 2.00 12/10/16 04:00 98 20 101/62 (75) 96 Nasal Cannula 2.00 12/10/16 03:00 104 22 105/62 (76) 97 Nasal Cannula 2.00 12/10/16 02:05 93 Room Air 12/10/16 02:00 112 20 123/74 (90) 97 Nasal Cannula 2.00 12/10/16 01:37 98.0 118 20 131/65 (87) 97 I/O 12/09/16 12/09/16 12/09/16 12/10/16 12/10/16 12/10/16 07:00 15:00 23:00 07:00 15:00 23:00 Intake Total 50 ml Balance 50 ml Intake Oral 50 ml Result Diagram: 12/10/1620412/10/16204 Objective Remarks GENERAL: This is a well-nourished, well-developed patient, in no apparent distress. CARDIOVASCULAR: Regular rate and regular rhythm without murmurs, gallops, or rubs. RESPIRATORY: diminished air entry in bases. GASTROINTESTINAL: Abdomen soft, non-tender, nondistended. Normal, active bowel sounds MUSCULOSKELETAL: Extremities without clubbing, cyanosis, or edema. NEURO: Alert & Oriented x4 to person, place, time, situation. Moves all ext x4 Medications and IVs Current Medications Sodium Chloride (NS Flush) 2 ml UNSCH PRN IVF FLUSH AFTER USING IV ACCESS Last administered on 12/10/16t 03:41; Start 12/10/16 at 03:00; Stop 12/10/16 at 05:30 ; Status DC Levofloxacin/ Dextrose 150 ml @ 100 mls/hr ONCE ONCE IV Last administered on 12/10/16 03:40; Start 12/10/16 at 03:00; Stop 12/10/16 at 04:29; Status DC Ondansetron HCl (Zofran Inj) 4 mg Q6H PRN IV PUSH NAUSEA Last administered on 12/10/16 03:40; Start 12/10/16 at 03:00; Stop 12/10/16 at 05:30; Status DC Cefepime HCl 2000 mg/Sodium Chloride 100 ml @ 200 mls/hr ONCE ONCE IV Last administered on 12/10/16 05:27; Start 12/10/16 at 03:00; Stop 12/10/16 at 03:29 ; Status DC Morphine Sulfate (Morphine Inj) 4 mg ONCE ONCE IV PUSH Last administered on 03:40; Start 12/10/16 at 03:00; Stop 12/10/16 at 03:01; Status DC Iohexol (Omnipaque 350 Inj) 75 ml STK-MED ONCE IVCONTRAST Last administered on 12/10/16 03:51; Start 12/10/16 at 03:51; Stop 12/10/16 at 03:52; Status DC Sodium Chloride 1,000 ml @ 999 mls/hr BOLUS ONCE IV Last administered on 12/10 05:26; Start 12/10/16 at 04:15; Stop 12/10/16 at 05:15; Status DC Sodium Chloride 1,000 ml @ 999 mls/hr BOLUS ONCE IV Last administered on 12/10 05:27; Start 12/10/16 at 04:15; Stop 12/10/16 at 05:15; Status DC Sodium Chloride (NS Flush) 2 ml UNSCH PRN IV FLUSH FLUSH AFTER USING IV ACCESS ; Start 12/10/16 at 05:15 Sodium Chloride (NS Flush) 2 ml BID IV FLUSH ; Start 12/10/16 at 09:00 Acetaminophen (Tylenol) 650 mg Q4H PRN PO TEMPERATURE > 101 F; Start 12/10/16 at 05:15 Ondansetron HCl (Zofran Inj) 4 mg Q6H PRN IV PUSH NAUSEA; Start 12/10/16 at 05: 15 Albuterol/ Ipratropium (Duoneb Neb) 1 ampule Q6HR NEB INH Last administered on 12/10/16t 08:15; Start 12/10/16 at 10:00 Albuterol/ Ipratropium (Duoneb Neb) 1 ampule Q4HR NEB PRN INH SHORTNESS OF BREATH; Start 12/10/16 at 05:15 Levofloxacin/ Dextrose 150 ml @ 100 mls/hr Q24H IV ; Start 12/11/16 at 04:00 Cefepime HCl 2000 mg/Sodium Chloride 100 ml @ 200 mls/hr Q8H IV ; Start at 11:00 Flumazenil (Romazicon Inj) 0.2 mg Q1M PRN IV PUSH SEE LABEL COMMENTS; Start at 06:15 Lorazepam (Ativan) 1 mg Q4H PRN PO CIWA 8 - 10; Start 12/10/16 at 06:15 Lorazepam (Ativan Inj) 1 mg Q4H PRN IV PUSH CIWA 8 - 10; Start 12/10/16 at 06: 15 Lorazepam (Ativan) 2 mg Q2H PRN PO CIWA 11-14 Last administered on 12/10/16t 09 :32; Start 12/10/16 at 06:15 Lorazepam (Ativan Inj) 2 mg Q2H PRN IV PUSH CIWA 11-14; Start 12/10/16 at 06:15 Lorazepam (Ativan Inj) 2 mg Q1H PRN IV PUSH CIWA 15-20; Start 12/10/16 at 06:15 Lorazepam (Ativan Inj) 2 mg Q15M PRN IV PUSH CIWA > 20; Start 12/10/16 at 06:15 Pneumococcal Polyvalent Vaccine (Pneumovax-23 Inj) 25 mcg ONCE ONCE IM ; Start 12/11/16 at 10:00; Stop 12/11/16 at 10:01 Influenza Virus Vaccine (Flu (Quadrivalent) Vaccine Inj) 0.5 ml ONCE ONCE IM ; Start 12/11/16 at 10:00; Stop 12/11/16 at 10:01 A/P Assessment and Plan A/P 1. Pneumonia Patient failed Rocephin 1 and completion of Z-Wolf Continue Levaquin and cefepime Sputum culture pending Blood cultures pending Lactic acid elevated at 2.9, monitor for signs of sepsis. Normal saline at 65 cc/hour continue with pain control. 2. COPD DuoNeb's Wean oxygen for an oxygen saturation greater than 92% 3. 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 Alcohol abuse CIUT protocol FEN Regular diet Electrolytes: Monitor and replete when necessary SCDs Fluids as above Kirill Farooq MD Dec 10, 2016 10:54
[2016-12-10] MEDS ORDERED: ACETAMINOPHEN/HYDROcodone 325 MG/5 MG TAB PO PRN (11:00)
[2016-12-10] MEDS: CEFEPIME INJ 2,000 MG in SODIUM CHLORIDE 0.9% INJ 100 ML IV SCH ×2 (12:02→22:48)
[2016-12-10] MEDS: SODIUM CHLORIDE 0.9% FLUSH 10 ML FLUSH IV FLUSH SCH ×2 (12:03→22:47)
[2016-12-10] MEDS ORDERED: SODIUM CHLORID 0.9% 500 ML INJ 500 ML IV ONE (20:45)
[2016-12-10] MEDS: SODIUM CHLOR 0.9% 1000 ML INJ 1,000 ML IV SCH (22:48)
[2016-12-11] VITALS (10 sets, daily range): BP systolic 82–107; BP diastolic 40–66; PULSE 73–84; RESP 16–17; TEMP 98–98.6; O2SAT 93–99
[2016-12-11] MEDS: ACETAMINOPHEN/HYDROcodone 325 MG/5 MG TAB PO PRN ×4 (01:57→23:26)
[2016-12-11] MEDS: CEFEPIME INJ 2,000 MG in SODIUM CHLORIDE 0.9% INJ 100 ML IV SCH ×4 (03:00→20:14)
[2016-12-11] MEDS: RESP: ALBUTEROL 2.5 MG/IPRATROPIUM 0.5 MG NEB (SCH) INH ×4 (03:31→22:00)
[2016-12-11 06:22] LABS: AUTOMATED NEUTROPHIL # 2.7 TH/MM3 (1.8-7.7); BASOPHIL # 0.1 TH/MM3 (0-0.2); BASOPHIL % 1.5 % (0.0-2.0); EOSINOPHIL # 0.2 TH/MM3 (0-0.4); EOSINOPHIL % 3.2 % (0.0-4.0); HEMATOCRIT 34.2 % (35.0-46.0); HEMOGLOBIN 11.5 GM/DL (11.6-15.3); LYMPH % 33.1 % (9.0-44.0); LYMPHOCYTE # 1.6 TH/MM3 (1.0-4.8); MEAN CORPUSCULAR HGB CONC 33.7 % (32.0-36.0); MEAN PLATELET VOLUME 6.8 FL (7.0-11.0); MONO % 6.7 % (0.0-8.0); MONOCYTE # 0.3 TH/MM3 (0-0.9); NEUT % 55.5 % (16.0-70.0); PLATELET COUNT 208 TH/MM3 (150-450); RED BLOOD COUNT 3.29 MIL/MM3 (4.00-5.30); RED CELL DISTRIBUTION WIDTH 14.8 % (11.6-17.2); WHITE BLOOD COUNT 4.8 TH/MM3 (4.0-11.0)
[2016-12-11] MEDS ORDERED: SODIUM CHLORID 0.9% 500 ML INJ 500 ML IV ONE (06:30)
[2016-12-11 06:40] LABS: BICARBONATE 24.8 MEQ/L (21.0-32.0); CALCIUM 8.2 MG/DL (8.5-10.1); CREATININE 0.48 MG/DL (0.50-1.00)
[2016-12-11] MEDS: LEVOFLOXACIN 750 MG PREMIX INJ 150 ML IV SCH (06:45)
[2016-12-11] MEDS: SODIUM CHLORIDE 0.9% FLUSH 10 ML FLUSH IV FLUSH SCH ×2 (09:00→20:26)
[2016-12-11] MEDS ORDERED: PNEUMOCOCCAL POLYVALENT INJ 25 MCG/0.5 ML SYR IM ONE (10:00)
[2016-12-11] MEDS ORDERED: INFLUENZA VIRUS VACCINE (QUADRIVALENT) 0.5 ML SYR IM ONE (10:00)
--- NOTE | 2016-12-11 11:25 | HHI.PR ---
Subjective Remarks in no acute distress. no fever. still with some pain to the left chest wall. BP noted on low side. Objective Vitals Vital Signs Date Time Temp Pulse Resp B/P (MAP) Pulse Ox O2 Delivery O2 Flow Rate FiO2 12/11/16 10:32 98 21 12/11/16 08:00 98.0 77 16 107/61 (76) 99 12/11/16 06:15 82/40 (54) 12/11/16 04:59 98.0 78 16 82/50 (61) 93 12/11/16 01:11 98.0 83 16 93/52 (66) 98 12/10/16 20:39 97 Nasal Cannula 2.00 12/10/16 20:29 98.0 81 15 83/56 (65) 97 12/10/16 15:24 98.6 87 24 97/61 (73) 95 I/O 12/10/16 12/10/16 12/10/16 12/11/16 12/11/16 12/11/16 07:00 15:00 23:00 07:00 15:00 23:00 Intake Total 50 ml 240 ml Balance 50 ml 240 ml Intake Oral 50 ml 240 ml # Voids 2 2 Result Diagram: 12/11/1660412/11/16604 Imaging Last Impressions Chest CT 12/10/16 025 Signed Impressions: Service Date/Time: December 03:50 - CONCLUSION: Left lower lobe infiltrate. Cezar Morrow MD Objective Remarks GENERAL: This is a well-nourished, well-developed patient, in no apparent distress. CARDIOVASCULAR: Regular rate and regular rhythm without murmurs, gallops, or rubs. RESPIRATORY: diminished air entry in bases. GASTROINTESTINAL: Abdomen soft, non-tender, nondistended. Normal, active bowel sounds MUSCULOSKELETAL: Extremities without clubbing, cyanosis, or edema. NEURO: Alert & Oriented x4 to person, place, time, situation. Moves all ext x4 Medications and IVs Current Medications Sodium Chloride (NS Flush) 2 ml UNSCH PRN IVF FLUSH AFTER USING IV ACCESS Last administered on 12/10/16t 03:41; Start 12/10/16 at 03:00; Stop 12/10/16 at 05:30 ; Status DC Levofloxacin/ Dextrose 150 ml @ 100 mls/hr ONCE ONCE IV Last administered on 12/10/16 03:40; Start 12/10/16 at 03:00; Stop 12/10/16 at 04:29; Status DC Ondansetron HCl (Zofran Inj) 4 mg Q6H PRN IV PUSH NAUSEA Last administered on 12/10/16 03:40; Start 12/10/16 at 03:00; Stop 12/10/16 at 05:30; Status DC Cefepime HCl 2000 mg/Sodium Chloride 100 ml @ 200 mls/hr ONCE ONCE IV Last administered on 12/10/16 05:27; Start 12/10/16 at 03:00; Stop 12/10/16 at 03:29 ; Status DC Morphine Sulfate (Morphine Inj) 4 mg ONCE ONCE IV PUSH Last administered on 03:40; Start 12/10/16 at 03:00; Stop 12/10/16 at 03:01; Status DC Iohexol (Omnipaque 350 Inj) 75 ml STK-MED ONCE IVCONTRAST Last administered on 12/10/16 03:51; Start 12/10/16 at 03:51; Stop 12/10/16 at 03:52; Status DC Sodium Chloride 1,000 ml @ 999 mls/hr BOLUS ONCE IV Last administered on 12/10 05:26; Start 12/10/16 at 04:15; Stop 12/10/16 at 05:15; Status DC Sodium Chloride 1,000 ml @ 999 mls/hr BOLUS ONCE IV Last administered on 12/10 05:27; Start 12/10/16 at 04:15; Stop 12/10/16 at 05:15; Status DC Sodium Chloride (NS Flush) 2 ml UNSCH PRN IV FLUSH FLUSH AFTER USING IV ACCESS ; Start 12/10/16 at 05:15 Sodium Chloride (NS Flush) 2 ml BID IV FLUSH Last administered on 12/10/16 22: 47; Start 12/10/16 at 09:00 Acetaminophen (Tylenol) 650 mg Q4H PRN PO TEMPERATURE > 101 F; Start 12/10/16 at 05:15 Ondansetron HCl (Zofran Inj) 4 mg Q6H PRN IV PUSH NAUSEA; Start 12/10/16 at 05: 15 Albuterol/ Ipratropium (Duoneb Neb) 1 ampule Q6HR NEB INH Last administered on 12/11/16 10:30; Start 12/10/16 at 10:00 Albuterol/ Ipratropium (Duoneb Neb) 1 ampule Q4HR NEB PRN INH SHORTNESS OF BREATH; Start 12/10/16 at 05:15 Levofloxacin/ Dextrose 150 ml @ 100 mls/hr Q24H IV Last administered on 06:45; Start 12/11/16 at 04:00 Cefepime HCl 2000 mg/Sodium Chloride 100 ml @ 200 mls/hr Q8H IV Last administered on 12/11/16 04:57; Start 12/10/16 at 11:00 Flumazenil (Romazicon Inj) 0.2 mg Q1M PRN IV PUSH SEE LABEL COMMENTS; Start at 06:15 Lorazepam (Ativan) 1 mg Q4H PRN PO CIWA 8 - 10; Start 12/10/16 at 06:15 Lorazepam (Ativan Inj) 1 mg Q4H PRN IV PUSH CIWA 8 - 10; Start 12/10/16 at 06: 15 Lorazepam (Ativan) 2 mg Q2H PRN PO CIWA 11-14 Last administered on 12/10/16 09 :32; Start 12/10/16 at 06:15 Lorazepam (Ativan Inj) 2 mg Q2H PRN IV PUSH CIWA 11-14; Start 12/10/16 at 06:15 Lorazepam (Ativan Inj) 2 mg Q1H PRN IV PUSH CIWA 15-20; Start 12/10/16 at 06:15 Lorazepam (Ativan Inj) 2 mg Q15M PRN IV PUSH CIWA > 20; Start 12/10/16 at 06:15 Pneumococcal Polyvalent Vaccine (Pneumovax-23 Inj) 25 mcg ONCE ONCE IM ; Start 12/11/16 at 10:00; Stop 12/11/16 at 10:04; Status DC Influenza Virus Vaccine (Flu (Quadrivalent) Vaccine Inj) 0.5 ml ONCE ONCE IM ; Start 12/11/16 at 10:00; Stop 12/11/16 at 10:04; Status DC Acetaminophen/ Hydrocodone Bitart ([place] 5-325 Mg) 1 tab Q6H PRN PO PAIN <5 Last administered on 12/10/16 15:22; Start 12/10/16 at 11:00 Acetaminophen/ Hydrocodone Bitart ([place] 5-325 Mg) 2 tab Q6H PRN PO PAIN 6-10 Last administered on 12/11/16 10:37; Start 12/10/16 at 11:00 Sodium Chloride 500 ml @ 500 mls/hr BOLUS ONCE IV Last administered on 21:23; Start 12/10/16 at 20:45; Stop 12/10/16 at 21:44; Status DC Sodium Chloride 1,000 ml @ 65 mls/hr [id number] IV Last administered on 22:48; Start 12/10/16 at 21:00 Sodium Chloride 500 ml @ 500 mls/hr BOLUS ONCE IV Last administered on 06:44; Start 12/11/16 at 06:30; Stop 12/11/16 at 07:29; Status DC A/P Assessment and Plan A/P 1. Pneumonia Patient failed Rocephin 1 and completion of Z-Wolf Continue Levaquin and cefepime for now. Sputum culture pending Blood cultures negative so far. will increase IV fluid- continue with pain control. 2. Hypotension- asymptomatic increase IV fluid and monitor closely. 3. COPD DuoNeb's Wean oxygen for an oxygen saturation greater than 92% 4. 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 Alcohol abuse CIWA protocol FEN Regular diet Electrolytes: Monitor and replete when necessary SCDs Fluids as above Discharge Planning dc home within the next 24-48 hrs if pain and BP improves- Kirill Farooq MD Dec 11, 2016 11:25
[2016-12-11] MEDS ORDERED: KETOROLAC TROMETHAMINE 30 MG/ML (IVP) VIAL IV PUSH PRN (11:30)
[2016-12-11] MEDS: SODIUM CHLOR 0.9% 1000 ML INJ 1,000 ML IV SCH ×2 (12:31→22:03)
[2016-12-12] VITALS: BP 117/62; PULSE 73; RESP 17; TEMP 97.2; O2SAT 98
[2016-12-12] MEDS: CEFEPIME INJ 2,000 MG in SODIUM CHLORIDE 0.9% INJ 100 ML IV SCH ×2 (02:34→11:13)
[2016-12-12] MEDS: LEVOFLOXACIN 750 MG PREMIX INJ 150 ML IV SCH (03:17)
[2016-12-12 04:00] VITALS: BP 101/62; PULSE 81; RESP 17; TEMP 96.2; O2SAT 100
[2016-12-12] MEDS: RESP: ALBUTEROL 2.5 MG/IPRATROPIUM 0.5 MG NEB (SCH) INH ×2 (04:00→09:48)
[2016-12-12] MEDS: ACETAMINOPHEN/HYDROcodone 325 MG/5 MG TAB PO PRN ×2 (05:40→12:20)
[2016-12-12 08:00] VITALS: BP 96/54; PULSE 72; RESP 20; TEMP 97.8; O2SAT 97
[2016-12-12] MEDS: SODIUM CHLORIDE 0.9% FLUSH 10 ML FLUSH IV FLUSH SCH (09:00)
[2016-12-12] MEDS: SODIUM CHLOR 0.9% 1000 ML INJ 1,000 ML IV SCH (09:06)
[2016-12-12 09:50] VITALS: O2SAT 95
[2016-12-12 12:00] VITALS: BP 115/68; PULSE 85; RESP 19; TEMP 97.7; O2SAT 97
[2016-12-12] MEDS ORDERED: LEVO750T3 PO (12:00)
[2016-12-12] MEDS ORDERED: HYDR-3516 PO (12:00)
--- NOTE | 2016-12-12 12:01 | HHI.DCPOC ---
Discharge Care Plan Diagnosis: (1) Pneumonia (2) Tobacco abuse (3) COPD (chronic obstructive pulmonary disease) Goals to Promote Your Health * To prevent worsening of your condition and complications * To maintain your health at the optimal level Directions to Meet Your Goals Take your medications as prescribed Follow your dietary instruction Follow activity as directed Keep your appointments as scheduled Take your immunizations and boosters as scheduled If your symptoms worsen call your PCP, if no PCP go to Urgent Care Center or Emergency Room Smoking is Dangerous to Your Health. Avoid second hand smoke Call the 24-hour hour crisis hotline for domestic abuse at Ivory Zhao MD Dec 12, 2016 12:01
--- NOTE | 2016-12-12 12:01 | HHI.DCPOC ---
Discharge Care Plan Diagnosis: (1) Pneumonia (2) Tobacco abuse (3) COPD (chronic obstructive pulmonary disease) Goals to Promote Your Health * To prevent worsening of your condition and complications * To maintain your health at the optimal level Directions to Meet Your Goals Take your medications as prescribed Follow your dietary instruction Follow activity as directed Keep your appointments as scheduled Take your immunizations and boosters as scheduled If your symptoms worsen call your PCP, if no PCP go to Urgent Care Center or Emergency Room Smoking is Dangerous to Your Health. Avoid second hand smoke Call the 24-hour hour crisis hotline for domestic abuse at Ivory Zhao MD Dec 12, 2016 12:01
--- NOTE | 2016-12-12 12:01 | HHI.DCPOC ---
Discharge Care Plan Diagnosis: (1) Pneumonia (2) Tobacco abuse (3) COPD (chronic obstructive pulmonary disease) Goals to Promote Your Health * To prevent worsening of your condition and complications * To maintain your health at the optimal level Directions to Meet Your Goals Take your medications as prescribed Follow your dietary instruction Follow activity as directed Keep your appointments as scheduled Take your immunizations and boosters as scheduled If your symptoms worsen call your PCP, if no PCP go to Urgent Care Center or Emergency Room Smoking is Dangerous to Your Health. Avoid second hand smoke Call the 24-hour hour crisis hotline for domestic abuse at Ivory Zhao MD Dec 12, 2016 12:01
[2016-12-12] MEDS ORDERED: VENTAER INH (12:02)
[2016-12-12] MEDS ORDERED: SYMB160A INH (12:02)
--- NOTE | 2016-12-12 12:03 | HHI.DS ---
Discharge Summary Admission Date Dec 10, 2016 at 04:42 Discharge Date: Dec 12, 2016 Admitting Diagnosis pneumonia (1) Pneumonia ICD Code: J18.9 - Pneumonia, unspecified organism (2) COPD (chronic obstructive pulmonary disease) ICD Code: J44.9 - COPD (chronic obstructive pulmonary disease) Status: Chronic (3) Tobacco abuse ICD Code: F17.200 - Tobacco abuse Status: Chronic Procedures None Brief History - From Admission 46-year-old female presents to the emergency department with continued cough, pleuritic chest pain and shortness of breath. The patient was seen in the emergency department on 11/27 where she was given Rocephin and prescribed a Z- Wolf for her left upper lobe infiltrate. The patient was compliant with her antibiotics and completed the course of azithromycin. She reports that during the past week her fever broke however she continues to have shortness of breath and left-sided pleuritic chest pain. She reports significant coughing that is very productive. CT done in the emergency department was significant for a left lower lobe infiltrate. CBC/BMP: 12/11/16 0605 12/11/16 0605 Significant Findings Laboratory Tests Test 12/10/16 02:05 12/10/16 03:20 12/10/16 13:57 12/11/16 06:05 Hemoglobin 15.8 GM/DL (11.6-15.3) 11.5 GM/DL (11.6-15.3) Mean Corpuscular Volume 101.0 FL (80.0-100.0) 104.0 FL (80.0-100.0) Mean Corpuscular Hemoglobin 34.9 PG (27.0-34.0) 35.0 PG (27.0-34.0) Mean Platelet Volume 6.9 FL (7.0-11.0) 6.8 FL (7.0-11.0) Lymphocytes (%) (Auto) 46.0 % (9.0-44.0) Basophils (%) (Auto) 4.2 % (0.0-2.0) Blood Urea Nitrogen 3 MG/DL (7-18) 5 MG/DL (7-18) Creatinine 0.49 MG/DL (0.50-1.00) 0.48 MG/DL (0.50-1.00) Sodium Level 132 MEQ/L (136-145) 135 MEQ/L (136-145) Chloride Level 95 MEQ/L (98-107) Lactic Acid Level 2.4 mmol/L (0.4-2.0) Red Blood Count 3.29 MIL/MM3 (4.00-5.30) Hematocrit 34.2 % (35.0-46.0) Calcium Level 8.2 MG/DL (8.5-10.1) Imaging Last Impressions Chest CT 12/10/16 0251 Signed Impressions: Service Date/Time: December 03:50 - CONCLUSION: Left lower lobe infiltrate. Cezar Morrow MD PE at Discharge GENERAL: This is a well-nourished, well-developed patient, in no apparent distress. CARDIOVASCULAR: Regular rate and regular rhythm without murmurs, gallops, or rubs. RESPIRATORY: diminished air entry in bases. GASTROINTESTINAL: Abdomen soft, non-tender, nondistended. Normal, active bowel sounds MUSCULOSKELETAL: Extremities without clubbing, cyanosis, or edema. NEURO: Alert & Oriented x4 to person, place, time, situation. Moves all ext x4 Pt update on day of discharge Patient reports she is feeling better. On room air. Discuss tobacco cessation with her. She will consider it. Hospital Course 46-year-old female admitted for pneumonia, failed outpatient treatment with azithromycin. The patient was admitted and treated with Levaquin and cefepime. Her symptoms significantly improved. She is discharged on Levaquin to complete the course of treatment. The patient also has a history of COPD. She is discharged on albuterol inhalers and Symbicort. She is advised to quit smoking and follow-up outpatient with PCP for referral to a elastic yarn twister. Pt Condition on Discharge: Good Discharge Disposition: Discharge Home Discharge Time: <= 30 minutes Discharge Instructions DIET: Follow Instructions for: Heart Healthy Diet Activities you can perform: Regular-No Restrictions New Medications: Albuterol 18 GM Inh (Ventolin Hfa 18 GM Inh) 90 Mcg/Act Aer 2 PUFF INH Q4-6H PRN for SHORTNESS OF BREATH, #1 INHALER 0 Refills Budesonide-Formoterol Inh (Symbicort Inh) 160-4.5 Mcg/Act Aero 1 PUFF INH Q12HR, #1 INHALER 0 Refills Levofloxacin (Levofloxacin) 750 Mg Tablet 750 MG PO DAILY for Infection, #7 TAB 0 Refills Hydrocodone-Acetaminophen (Hydrocodone-Acetaminophen) 5-325 mg Tab 1 TAB PO Q6H PRN for PAIN GREATER THAN 5, #10 TAB Continued Medications: Atropine Opth Drops (Atropine Opth Drops) 1% Soln 1 DROP EACH EYE BID for Infection, #2 ML 0 Refills Prednisolone Acetate Opth 1% (Pred Forte Opth 1%) 1% Susp 1 DROP EACH EYE BID for Inflammation, #1 BOTTLE 0 Refills Ivory Zhao MD Dec 12, 2016 12:03
== END 2016-12-12 13:22 | disposition home or self-care (01) | DRG 190 ==
LOC: NEPE 01:34 → INTOOBSV 04:42 → OBSVTOIN 04:42 → NEDA 04:42 → NEPGCP 06:21 → N07B 12-11 21:56
PROVIDERS: ADMIT Family Medicine; ATTEND Family Medicine
DX: J44.0 Chronic obstructive pulmonary disease with (acute) lower respiratory infection (principal); J18.9 Pneumonia, unspecified organism; I95.9 Hypotension, unspecified; E78.00 Pure hypercholesterolemia, unspecified; H54.7 Unspecified visual loss; F10.10 Alcohol abuse, uncomplicated; F17.200 Nicotine dependence, unspecified, uncomplicated; Z79.01 Long term (current) use of anticoagulants; Z88.0 Allergy status to penicillin
CPT/HCPCS: 71260; 80048; 83605; 85025; 87040; 94640; 94664; 96365; 96375; J0692; J1956; J2270; J2405; J7030; J7040; Q9967

== ENCOUNTER 2017-03-17 16:05 | Emergency (ER) | payer SELFPAY ==
[~2017-03-17] VITALS: Ht 162.6 cm; Wt 40.0 kg
[~2017-03-17 16:05] MED LIST changes: +ATRO1SOL11 EACH EYE; +HYDR-3516 PO; +LEVO750T3 PO; -MILKSUS PO; -OXYC1TAB35 PO; -PANT40TA3 PO; +PRED1SUS EACH EYE; -PROM1SUP7 RECTAL; +SYMB160A INH; -TETR0.052 EACH EYE; +VENTAER INH; -ZITHTAB PO; -ZOFR8TAB4 SL
[2017-03-17 16:12] VITALS: O2SAT 99
[2017-03-17 16:13] VITALS: BP 93/65; PULSE 89; RESP 20; O2SAT 99
[2017-03-17] MEDS ORDERED: SODIUM CHLORIDE 0.9% FLUSH 10 ML FLUSH IVF PRN (16:15)
[2017-03-17] MEDS ORDERED: RESP: ALBUTEROL 2.5 MG/IPRATROPIUM 0.5 MG NEB (SCH) INH ONE (16:15)
[2017-03-17] MEDS ORDERED: SODIUM CHLOR 0.9% 1000 ML INJ 1,000 ML IV ONE (16:15)
[2017-03-17 16:56] LABS: AUTOMATED NEUTROPHIL # 5.2 TH/MM3 (1.8-7.7); BASOPHIL # 0.1 TH/MM3 (0-0.2); BASOPHIL % 1.3 % (0.0-2.0); EOSINOPHIL # 0.1 TH/MM3 (0-0.4); EOSINOPHIL % 1.3 % (0.0-4.0); HEMATOCRIT 40.4 % (35.0-46.0); HEMOGLOBIN 13.9 GM/DL (11.6-15.3); LYMPH % 21.4 % (9.0-44.0); LYMPHOCYTE # 1.8 TH/MM3 (1.0-4.8); MEAN CELL VOLUME 101.8 FL (80.0-100.0); MEAN CORPUSCULAR HGB CONC 34.4 % (32.0-36.0); MEAN PLATELET VOLUME 6.5 FL (7.0-11.0); MONO % 11.8 % (0.0-8.0); NEUT % 64.2 % (16.0-70.0); PLATELET COUNT 291 TH/MM3 (150-450); RED BLOOD COUNT 3.97 MIL/MM3 (4.00-5.30); RED CELL DISTRIBUTION WIDTH 15.4 % (11.6-17.2); WHITE BLOOD COUNT 8.2 TH/MM3 (4.0-11.0)
[2017-03-17 17:08] LABS: INTERNATIONAL NORMALIZED RATIO 1.1 RATIO; PROTHROMBIN TIME - PATIENT 11.1 SEC (9.8-11.6)
--- NOTE | 2017-03-17 17:08 | RADRPT ---
EXAM DATE/TIME: 03/17/2017 16:40 [place] COMPARISON: CT THORAX W CONTRAST, December 10, 2016, 3:50. CHEST SINGLE AP, June 22, 2016, 20:27. INDICATIONS : Short of breath. MEDICAL HISTORY : Chronic obstructive pulmonary disease. Recent pneumonia. SURGICAL HISTORY : None. ENCOUNTER: Initial ACUITY: 1 day PAIN SCORE: 3/10 LOCATION: Bilateral lower chest FINDINGS: The lungs are hyperinflated consistent with COPD. No focal infiltrate is noted. No pulmonary edema is noted. The heart is normal. There is blunting of the right costophrenic recess consistent with tiny pleural effusion or pleural thickening. CONCLUSION: Blunting of the right costophrenic recess consistent with tiny pleural effusion or pleural thickening . Hyperinflation of the lungs consistent with COPD. No focal infiltrate or pulmonary vascular congest ion. Michael Richards MD on March 17, 2017 at 17:04 Board Certified Radiologist. This report was verified electronically.
[2017-03-17 17:13] LABS: ALBUMIN 2.9 GM/DL (3.4-5.0); ALT (GPT) 28 U/L (10-53); AST (GOT) 46 U/L (15-37); BICARBONATE 21.1 MEQ/L (21.0-32.0); BLOOD UREA NITROGEN 3 MG/DL (7-18); CALCIUM 7.9 MG/DL (8.5-10.1); CHLORIDE 103 MEQ/L (98-107); CREATININE 0.41 MG/DL (0.50-1.00); GLOMERULAR FILTRATION RATE 166 ML/MIN (>89); GLUCOSE,RANDOM 117 MG/DL (74-106); SODIUM (NA) 134 MEQ/L (136-145)
[2017-03-17 17:17] LABS: ALKALINE PHOSPHATASE 158 U/L (45-117); TOTAL BILIRUBIN ADULT 0.2 MG/DL (0.2-1.0); TOTAL PROTEIN 7.1 GM/DL (6.4-8.2); TROPONIN I LESS THAN 0.02 NG/ML (0.02-0.05)
[2017-03-17] MEDS ORDERED: IBUPROFEN 600 MG TAB PO ONE (18:30)
--- NOTE | 2017-03-17 18:34 | PD ---
HPI Chief Complaint: Chest Pain Time Seen by Provider: 16:11 Travel History International Travel<30 days: No Contact w/Intl Traveler<30days: No Traveled to known affect area: No History of Present Illness HPI Patient is a 47-year-old female brought in by EMS due to chest pain. Per EMS, she said it was on the right side in the left side. EMS states that she was talking normally with them and then as soon as they called report and were told to go to triage, she became unresponsive in the ambulance. She told EMS that she drank 3 beers prior to their arrival. She has been here in the past for COPD issues as well as alcohol intoxication. She provides no other history. PFSH Past Medical History Hx Anticoagulant Therapy: Yes (COUMADIN 5MG PO DAILY) Arthritis: No Asthma: No Autoimmune Disease: No Blood Disorders: No Anxiety: Yes ( ) Depression: No Heart Rhythm Problems: No Cancer: No Cardiovascular Problems: No High Cholesterol: No Chemotherapy: No Chest Pain: No Congestive Heart Failure: No COPD: No Cerebrovascular Accident: No Diabetes: No Diminished Hearing: No Endocrine: No Gastrointestinal Disorders: No GERD: No Genitourinary: No Headaches: No Hepatitis: No Hiatal Hernia: No Heparin Induced Thrombocytopen: No Hypertension: No Immune Disorder: No Implanted Vascular Access Dvce: No Kidney Stones: No Musculoskeletal: No Neurologic: No Psychiatric: No Reproductive: No Respiratory: Yes Immunizations Current: Yes Migraines: No Pancreatitis: Yes Radiation Therapy: No Renal Failure: No Seizures: No Sickle Cell Disease: No Sleep Apnea: No Thyroid Disease: No Ulcer: No ?: Not Menopausal: Yes : 2 Para: 2 Past Surgical History Abdominal Surgery: No AICD: No Arteriovenous Shunt: No Body Medical Devices: BREAST IMPLANTS Cardiac Surgery: No Ear Surgery: No Endocrine Surgery: No Genitourinary Surgery: No Gynecologic Surgery: No Insulin Pump: No Joint Replacement: No Neurologic Surgery: No Oral Surgery: No Pacemaker: No Thoracic Surgery: Yes (right thoracotomy) Tonsillectomy: Yes Other Surgery: Yes (right thoracotomy, tonsils out) Social History Alcohol Use: Yes (4 BEERS TODAY) Tobacco Use: Yes (one pack per day) Substance Use: No Allergies-Medications (Allergen,Severity, Reaction): Coded Allergies: penicillin G (Unverified Allergy, Severe, Hives, 09/22/16) Reported Meds & Prescriptions Reported Meds & Active Scripts Active No Active Prescriptions or Reported Medications Review of Systems ROS Limitations: Intoxication Physical Exam Narrative GENERAL: Patient laying still, refusing to answer questions, in no acute distress. SKIN: Focused skin assessment warm/dry. No wounds or signs of infection. HEAD: Atraumatic. Normocephalic. EYES: Pupils equal and round. No scleral icterus. ENT: Mucous membranes pink and moist. NECK: Trachea midline. No JVD. CARDIOVASCULAR: Regular rate and rhythm. No murmur appreciated. RESPIRATORY: No accessory muscle use. C occasional wheezes on the right side, coarse breath sounds to the right lower base. Breath sounds equal bilaterally. GASTROINTESTINAL: Abdomen soft, non-tender, nondistended. MUSCULOSKELETAL: No obvious deformities. No clubbing. No cyanosis. No edema. NEUROLOGICAL: No obvious cranial nerve deficits. Motor grossly within normal limits. Data Data Last Documented VS Vital Signs Date Time Temp Pulse Resp B/P (MAP) Pulse Ox O2 Delivery O2 Flow Rate FiO2 03/17/17 16:13 89 20 93/65 (74) 99 03/17/17 16:12 21 Orders Orders Complete Blood Count With Diff (03/17/17 16:13) Comprehensive Metabolic Panel (03/17/17 16:13) Act Partial Throm Time (Ptt) (03/17/17 16:13) Prothrombin Time / Inr (Pt) (03/17/17 16:13) Troponin I (03/17/17 16:13) Iv Access Insert/Monitor (03/17/17 16:13) Ecg Monitoring (03/17/17 16:13) Oximetry (03/17/17 16:13) Oxygen Administration (03/17/17 16:13) Chest, Single Ap (03/17/17 16:13) Sodium Chloride 0.9% Flush (Ns Flush) (03/17/17 16:15) Albuterol-Ipratropium Neb (Duoneb Neb) (03/17/17 16:15) Alcohol (Ethanol) (03/17/17 16:13) Sodium Chlor 0.9% 1000 Ml Inj (Ns 1000 M (03/17/17 16:15) Electrocardiogram (03/17/17 16:11) Ibuprofen (Motrin) (03/17/17 18:30) Labs Laboratory Tests Test 03/17/17 16:30 White Blood Count 8.2 TH/MM3 Red Blood Count 3.97 MIL/MM3 Hemoglobin 13.9 GM/DL Hematocrit 40.4 % Mean Corpuscular Volume 101.8 FL Mean Corpuscular Hemoglobin 35.0 PG Mean Corpuscular Hemoglobin Concent 34.4 % Red Cell Distribution Width 15.4 % Platelet Count 291 TH/MM3 Mean Platelet Volume 6.5 FL Neutrophils (%) (Auto) 64.2 % Lymphocytes (%) (Auto) 21.4 % Monocytes (%) (Auto) 11.8 % Eosinophils (%) (Auto) 1.3 % Basophils (%) (Auto) 1.3 % Neutrophils # (Auto) 5.2 TH/MM3 Lymphocytes # (Auto) 1.8 TH/MM3 Monocytes # (Auto) 1.0 TH/MM3 Eosinophils # (Auto) 0.1 TH/MM3 Basophils # (Auto) 0.1 TH/MM3 CBC Comment DIFF FINAL Differential Comment Prothrombin Time 11.1 SEC Prothromb Time International Ratio 1.1 RATIO Activated Partial Thromboplast Time 32.1 SEC Blood Urea Nitrogen 3 MG/DL Creatinine 0.41 MG/DL Random Glucose 117 MG/DL Total Protein 7.1 GM/DL Albumin 2.9 GM/DL Calcium Level 7.9 MG/DL Alkaline Phosphatase 158 U/L Aspartate Amino Transf (AST/SGOT) 46 U/L Alanine Aminotransferase (ALT/SGPT) 28 U/L Total Bilirubin 0.2 MG/DL Sodium Level 134 MEQ/L Potassium Level 3.5 MEQ/L Chloride Level 103 MEQ/L Carbon Dioxide Level 21.1 MEQ/L Anion Gap 10 MEQ/L Estimat Glomerular Filtration Rate 166 ML/MIN Troponin I LESS THAN 0.02 NG/ML Ethyl Alcohol Level 318 MG/DL [facility] Medical Decision Making Medical Screen Exam Complete: Yes Emergency Medical Condition: Yes Medical Record Reviewed: Yes Interpretation(s) ECG shows normal sinus rhythm at 89, no ST elevation or depression, normal intervals Differential Diagnosis Intoxication versus COPD exacerbation versus pneumonia Narrative Course Patient is a 47-year-old female who came in complaining of right-sided chest pain. She pretended to go unresponsive on arrival, however when I sat her up she started talking and complaining of pain. IV established, labs sent. Patient then walked herself to the bathroom without any issue. Labs show no acute abnormalities other than an alcohol level of 318. Chest x-ray performed shows no acute abnormalities. She is given a DuoNeb as well as ibuprofen. Patient observed in the emergency department without further issue. Her [id number] is here. She is awake, alert, eating. She will be discharged home with the [id number]. She is advised to avoid alcohol. Advised to stop smoking. Advised to use albuterol as needed for shortness of breath. Advised to return to the ED as needed for any worsening symptoms. Diagnosis Primary Impression: COPD (chronic obstructive pulmonary disease) Qualified Codes: J44.9 - Chronic obstructive pulmonary disease, unspecified Additional Impression: Alcohol intoxication Qualified Codes: F10.920 - Alcohol use, unspecified with intoxication, uncomplicated Referrals: [facility] call for appointment Patient Instructions: Alcohol Intoxication (ED), COPD (Chronic Obstructive Pulmonary Disease) (ED), General Instructions Additional Instructions: Avoid alcohol use. Quit smoking. Use albuterol as needed for shortness of breath. Take ibuprofen as needed for pain. Follow-up with a primary care doctor. Return to the ED as needed for any worsening symptoms. Scripts No Active Prescriptions or Reported Meds Disposition: 01 DISCHARGE HOME Condition: Stable Kayley Aguillon MD Mar 17, 2017 18:34
--- NOTE | 2017-03-18 20:24 | EKG ---
Date Performed: 03/17/2017 Time Performed: 16:11:24 PTAGE: 47 years EKG: Sinus rhythm LOW QRS VOLTAGE IN PRECORDIAL LEADS SEPTAL MYOCARDIAL INFARCTION ABNORMAL ECG PREVIOUS TRACING : 11/27/2016 02.15 Since the prior tracing, there has been no significant wyman DOCTOR: Saqib Zarate Interpretating Date/Time 03/18/2017 20:19:33
== END 2017-03-17 18:55 | disposition home or self-care (01) ==
LOC: NEPE 16:05
DX: J44.9 Chronic obstructive pulmonary disease, unspecified (principal); F10.129 Alcohol abuse with intoxication, unspecified; Y90.8 Blood alcohol level of 240 mg/100 ml or more; F17.210 Nicotine dependence, cigarettes, uncomplicated; Z79.01 Long term (current) use of anticoagulants
CPT/HCPCS: 71045; 80053; 80307; 84484; 85025; 85610; 85730; 93005; 94664; 96360; 96361; 99285; J7030

== ENCOUNTER 2017-05-06 00:38 | Emergency (ER) | payer OTHER ==
[~2017-05-06] VITALS: Ht 157.5 cm; Wt 45.0 kg
[2017-05-06 00:57] VITALS: BP 97/52; PULSE 93; RESP 16; TEMP 98.6; O2SAT 97
[2017-05-06 01:41] LABS: AUTOMATED NEUTROPHIL # 1.6 TH/MM3 (1.8-7.7); BASOPHIL % 0.5 % (0.0-2.0); EOSINOPHIL # 0.2 TH/MM3 (0-0.4); EOSINOPHIL % 4.8 % (0.0-4.0); HEMATOCRIT 43.6 % (35.0-46.0); HEMOGLOBIN 15.1 GM/DL (11.6-15.3); LYMPH % 51.1 % (9.0-44.0); LYMPHOCYTE # 2.2 TH/MM3 (1.0-4.8); MEAN CELL VOLUME 104.6 FL (80.0-100.0); MEAN CORPUSCULAR HEMOGLOBIN 36.2 PG (27.0-34.0); MEAN CORPUSCULAR HGB CONC 34.6 % (32.0-36.0); MONO % 5.8 % (0.0-8.0); MONOCYTE # 0.3 TH/MM3 (0-0.9); NEUT % 37.8 % (16.0-70.0); PLATELET COUNT 187 TH/MM3 (150-450); RED BLOOD COUNT 4.17 MIL/MM3 (4.00-5.30); RED CELL DISTRIBUTION WIDTH 15.3 % (11.6-17.2); WHITE BLOOD COUNT 4.3 TH/MM3 (4.0-11.0)
[2017-05-06 02:00] LABS: ALBUMIN 3.1 GM/DL (3.4-5.0); ALT (GPT) 49 U/L (10-53); AST (GOT) 130 U/L (15-37); BICARBONATE 26.5 MEQ/L (21.0-32.0); BLOOD UREA NITROGEN 3 MG/DL (7-18); CALCIUM 8.6 MG/DL (8.5-10.1); CHLORIDE 99 MEQ/L (98-107); CREATININE 0.41 MG/DL (0.50-1.00); GLOMERULAR FILTRATION RATE 166 ML/MIN (>89); GLUCOSE,RANDOM 83 MG/DL (74-106); SODIUM (NA) 135 MEQ/L (136-145)
[2017-05-06 02:01] LABS: ALKALINE PHOSPHATASE 230 U/L (45-117); TOTAL BILIRUBIN ADULT 0.4 MG/DL (0.2-1.0); TOTAL PROTEIN 7.9 GM/DL (6.4-8.2)
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
== END 2017-05-06 03:19 | disposition home or self-care (01) ==
LOC: NEDAMB 00:38
DX: F10.10 Alcohol abuse, uncomplicated (principal); F41.9 Anxiety disorder, unspecified; F17.200 Nicotine dependence, unspecified, uncomplicated; Z87.19 Personal history of other diseases of the digestive system; Z88.0 Allergy status to penicillin
CPT/HCPCS: 80053; 80307; 84703; 85025; 99283

== ENCOUNTER 2017-05-10 22:17 | Inpatient (IN) | payer MEDICARE ==
[~2017-05-10] VITALS: Ht 162.6 cm; Wt 34.9 kg
[2017-05-10 22:34] VITALS: BP 135/79; PULSE 114; RESP 20; TEMP 98.7; O2SAT 99
[2017-05-10 22:50] VITALS: BP 116/67; PULSE 88; RESP 18; TEMP 98.7; O2SAT 100
[2017-05-10] MEDS ORDERED: SODIUM CHLOR 0.9% 1000 ML INJ 1,000 ML IV SCH (23:02)
[2017-05-10] MEDS ORDERED: FAMOTIDINE 20 MG/2 ML VIAL IV PUSH STA (23:04)
--- NOTE | 2017-05-10 23:10 | PD ---
HPI Chief Complaint: Abdominal Pain Time Seen by Provider: 22:46 Travel History International Travel<30 days: No Contact w/Intl Traveler<30days: No Traveled to known affect area: No History of Present Illness HPI The patient is a 47-year-old female who presents to the emergency department for abdominal pain. The patient states her abdominal pain started earlier today, initially started periumbilical, then elevated to the epigastrium , radiating to the left flank and back, now radiates to the left lower chest. The patient does have a history of similar pain in the past secondary to pancreatitis. The patient's last drink of alcohol was earlier today. However, she denies any previous radiation of the pain up into the left chest wall. She does complain of mild nausea, denies any vomiting or diarrhea. Symptoms are moderate. She does drink alcohol daily, approximately 8-9 drinks per day. Symptoms are moderate. There are no current alleviating factors. Possibly exacerbated by alcohol, similar to previous pancreatitis. PFSH Past Medical History Hx Anticoagulant Therapy: Yes (COUMADIN 5MG PO DAILY) Arthritis: No Asthma: No Autoimmune Disease: No Blood Disorders: No Anxiety: Yes ( ) Depression: No Heart Rhythm Problems: No Cancer: No Cardiovascular Problems: No High Cholesterol: No Chemotherapy: No Chest Pain: No Congestive Heart Failure: No COPD: No Cerebrovascular Accident: No Diabetes: No Diminished Hearing: No Endocrine: No Gastrointestinal Disorders: No GERD: No Genitourinary: No Headaches: No Hepatitis: No Hiatal Hernia: No Heparin Induced Thrombocytopen: No Hypertension: No Immune Disorder: No Implanted Vascular Access Dvce: No Kidney Stones: No Musculoskeletal: No Neurologic: No Psychiatric: No Reproductive: No Respiratory: Yes Immunizations Current: Yes Migraines: No Pancreatitis: Yes Radiation Therapy: No Renal Failure: No Seizures: No Sickle Cell Disease: No Sleep Apnea: No Thyroid Disease: No Ulcer: No ?: Not Menopausal: Yes : 2 Para: 2 Past Surgical History Abdominal Surgery: No AICD: No Arteriovenous Shunt: No Body Medical Devices: BREAST IMPLANTS Cardiac Surgery: No Ear Surgery: No Endocrine Surgery: No Genitourinary Surgery: No Gynecologic Surgery: No Insulin Pump: No Joint Replacement: No Neurologic Surgery: No Oral Surgery: No Pacemaker: No Thoracic Surgery: Yes (right thoracotomy) Tonsillectomy: Yes Other Surgery: Yes (right thoracotomy, tonsils out) Social History Alcohol Use: Yes (4 BEERS TODAY) Tobacco Use: Yes (one pack per day) Substance Use: No Allergies-Medications (Allergen,Severity, Reaction): Coded Allergies: penicillin G (Unverified Allergy, Severe, Hives, 05/06/17) Reported Meds & Prescriptions Reported Meds & Active Scripts Active No Active Prescriptions or Reported Medications Review of Systems Except as stated in HPI: all other systems reviewed are Neg General / Constitutional: No: Fever Cardiovascular: Positive: Chest Pain or Discomfort Respiratory: No: Shortness of Breath Gastrointestinal: Positive: Nausea, Abdominal Pain, No: Vomiting, Diarrhea Genitourinary: No: Dysuria Musculoskeletal: Positive: Weakness Neurologic: No: Dizziness Hematologic/Lymphatic: Positive: Easy Bruising Physical Exam Narrative GENERAL: Awake, alert, pleasant 47-year-old female who appears older than her stated age and is noted to be cachectic. SKIN: Focused skin assessment warm/dry. Old appearing ecchymosis noted over the left forearm. HEAD: Atraumatic. Normocephalic. EYES: No scleral icterus noted. ENT: No nasal bleeding or discharge. Dry mucous membranes. NECK: Trachea midline. No JVD. CARDIOVASCULAR: Regular, tachycardic with a heart rate of 115. RESPIRATORY: No accessory muscle use. Clear to auscultation. Breath sounds equal bilaterally. GASTROINTESTINAL: Abdomen thin, tender to palpation epigastrium. Mild guarding of the epigastrium. MUSCULOSKELETAL: No obvious deformities. No clubbing. No cyanosis. No edema. Cachectic build. NEUROLOGICAL: Awake and alert. No obvious cranial nerve deficits. Motor grossly within normal limits. Normal speech. Nonfocal. PSYCHIATRIC: Appropriate mood and affect; insight and judgment normal. Data Data Last Documented VS Vital Signs Date Time Temp Pulse Resp B/P (MAP) Pulse Ox O2 Delivery O2 Flow Rate FiO2 05/10/17 23:02 18 05/10/17 22:50 98.7 88 116/67 (83) 100 Orders Orders Complete Blood Count With Diff (05/10/17 23:02) Comprehensive Metabolic Panel (05/10/17 23:02) Lipase (05/10/17 23:02) Lactic Acid (05/10/17 23:02) Iv Access Insert/Monitor (05/10/17 23:02) Ecg Monitoring (05/10/17 23:02) Oximetry (05/10/17 23:02) Morphine Inj (Morphine Inj) (05/10/17 23:15) Ondansetron Inj (Zofran Inj) (05/10/17 23:15) Sodium Chlor 0.9% 1000 Ml Inj (Ns 1000 M (05/10/17 23:02) Sodium Chloride 0.9% Flush (Ns Flush) (05/10/17 23:15) Electrocardiogram (05/10/17 23:02) Chest, Single Ap (05/10/17 23:02) Troponin I (05/10/17 23:02) Creatine Kinase (Cpk) (05/10/17 23:02) Famotidine Inj (Pepcid Inj) (05/10/17 23:04) Alcohol (Ethanol) (05/10/17 23:02) Ketorolac Inj (Toradol Inj) (05/11/17 00:30) Place In Observation (05/11/17 ) Vital Signs (Adult) Q4H (05/11/17 00:38) Activity Oob With Assistance (05/11/17 00:38) Diet Npo (05/11/17 Breakfast) Sodium Chlor 0.9% 1000 Ml Inj (Ns 1000 M (05/11/17 00:38) Sodium Chloride 0.9% Flush (Ns Flush) (05/11/17 00:45) Sodium Chloride 0.9% Flush (Ns Flush) (05/11/17 09:00) Acetaminophen (Tylenol) (05/11/17 00:45) Ondansetron Inj (Zofran Inj) (05/11/17 00:45) Comprehensive Metabolic Panel (05/12/17 06:00) Complete Blood Count With Diff (05/12/17 06:00) Case Management Consult (05/11/17 00:38) Naloxone Inj (Narcan Inj) (05/11/17 00:45) Docusate Sodium-Senna (Estela-Colace) (05/11/17 09:00) Magnesium Hydroxide Liq (Milk Of Magnesi (05/11/17 00:45) Sennosides (Senokot) (05/11/17 00:45) Bisacodyl Supp (Dulcolax Supp) (05/11/17 00:45) Lactulose Liq (Lactulose Liq) (05/11/17 00:45) Admit Order (Ed Use Only) (05/11/17 00:39) Labs Laboratory Tests Test 05/10/17 23:54 05/11/17 00:15 White Blood Count 5.9 TH/MM3 Red Blood Count 4.73 MIL/MM3 Hemoglobin 17.2 GM/DL Hematocrit 49.3 % Mean Corpuscular Volume 104.1 FL Mean Corpuscular Hemoglobin 36.3 PG Mean Corpuscular Hemoglobin Concent 34.9 % Red Cell Distribution Width 14.9 % Platelet Count 158 TH/MM3 Mean Platelet Volume 6.7 FL Neutrophils (%) (Auto) 62.3 % Lymphocytes (%) (Auto) 26.4 % Monocytes (%) (Auto) 5.1 % Eosinophils (%) (Auto) 2.6 % Basophils (%) (Auto) 3.6 % Neutrophils # (Auto) 3.7 TH/MM3 Lymphocytes # (Auto) 1.5 TH/MM3 Monocytes # (Auto) 0.3 TH/MM3 Eosinophils # (Auto) 0.2 TH/MM3 Basophils # (Auto) 0.2 TH/MM3 CBC Comment DIFF FINAL Differential Comment Blood Urea Nitrogen 2 MG/DL Creatinine 0.52 MG/DL Random Glucose 82 MG/DL Total Protein 8.5 GM/DL Albumin 3.3 GM/DL Calcium Level 8.8 MG/DL Alkaline Phosphatase 269 U/L Aspartate Amino Transf (AST/SGOT) 150 U/L Alanine Aminotransferase (ALT/SGPT) 57 U/L Total Bilirubin 0.5 MG/DL Sodium Level 130 MEQ/L Potassium Level 3.5 MEQ/L Chloride Level 95 MEQ/L Carbon Dioxide Level 23.5 MEQ/L Anion Gap 12 MEQ/L Estimat Glomerular Filtration Rate 126 ML/MIN Total Creatine Kinase 63 U/L Troponin I LESS THAN 0.02 NG/ML Lipase 2828 U/L Ethyl Alcohol Level 257 MG/DL [facility] Medical Decision Making Medical Screen Exam Complete: Yes Emergency Medical Condition: Yes Medical Record Reviewed: Yes Interpretation(s) EKG reveals sinus tachycardia with a heart rate of 101. Chest x-ray reveals hyperinflated lungs without focal infiltrate. Last Impressions Chest X-Ray 05/10/17 7687 Signed Impressions: Service Date/Time: Wednesday, May 10, 2017 23:06 - CONCLUSION: Hyperinflated lungs without focal infiltrate Cezar Morrow MD Laboratory Tests Test 05/10/17 23:54 05/11/17 00:15 White Blood Count 5.9 TH/MM3 Red Blood Count 4.73 MIL/MM3 Hemoglobin 17.2 GM/DL Hematocrit 49.3 % Mean Corpuscular Volume 104.1 FL Mean Corpuscular Hemoglobin 36.3 PG Mean Corpuscular Hemoglobin Concent 34.9 % Red Cell Distribution Width 14.9 % Platelet Count 158 TH/MM3 Mean Platelet Volume 6.7 FL Neutrophils (%) (Auto) 62.3 % Lymphocytes (%) (Auto) 26.4 % Monocytes (%) (Auto) 5.1 % Eosinophils (%) (Auto) 2.6 % Basophils (%) (Auto) 3.6 % Neutrophils # (Auto) 3.7 TH/MM3 Lymphocytes # (Auto) 1.5 TH/MM3 Monocytes # (Auto) 0.3 TH/MM3 Eosinophils # (Auto) 0.2 TH/MM3 Basophils # (Auto) 0.2 TH/MM3 CBC Comment DIFF FINAL Differential Comment Blood Urea Nitrogen 2 MG/DL Creatinine 0.52 MG/DL Random Glucose 82 MG/DL Total Protein 8.5 GM/DL Albumin 3.3 GM/DL Calcium Level 8.8 MG/DL Alkaline Phosphatase 269 U/L Aspartate Amino Transf (AST/SGOT) 150 U/L Alanine Aminotransferase (ALT/SGPT) 57 U/L Total Bilirubin 0.5 MG/DL Sodium Level 130 MEQ/L Potassium Level 3.5 MEQ/L Chloride Level 95 MEQ/L Carbon Dioxide Level 23.5 MEQ/L Anion Gap 12 MEQ/L Estimat Glomerular Filtration Rate 126 ML/MIN Total Creatine Kinase 63 U/L Troponin I LESS THAN 0.02 NG/ML Lipase 2828 U/L Ethyl Alcohol Level 257 MG/DL Differential Diagnosis Differential diagnosis includes pancreatitis, alcoholic gastritis, alcohol intoxication, inferior WA, pneumothorax, perforated gastric ulcer, chronic pancreatitis, biliary stone. Narrative Course IV was established via ultrasound guidance, labs are drawn and sent, and the patient was placed on cardiac telemetry monitoring and continuous pulse oximetry monitoring. The patient was administered morphine, Zofran, Pepcid, and IV fluids. EKG was ordered and interpreted. Chest x-ray was obtained. Patient's hemoglobin and hematocrit are elevated, most likely secondary to hemoconcentration and dehydration. Troponin is unremarkable. Chest x-ray was negative. Lipase is elevated greater than 2800 consistent with acute pancreatitis, most likely related to alcohol use his alcohol level is greater than 200. The patient is advised to stop drinking alcohol. Patient will be admitted. Procedures Procedure Narrative I was asked to place a ultrasound guided IV. Therefore, the right upper extremity had a tourniquet applied, using the ultrasound, linear probe, I placed a 20-gauge ultrasound-guided IV without difficulty. There was good blood return. The IV fluid easily. The patient tolerated the procedure without difficulty. Physician Communication Physician Communication The on-call medical service was paged for admission. I discussed the patient with Dr. La who agrees with 23 hour observation. Diagnosis Primary Impression: Acute alcoholic pancreatitis Qualified Codes: K85.20 - Alcohol induced acute pancreatitis without necrosis or infection Admitting Information Admitting Physician Requests: Observation Scripts No Active Prescriptions or Reported Meds Condition: Stable Hansel Caraballo MD May 10, 2017 23:10
[2017-05-10] MEDS ORDERED: ONDANSETRON HCL 4 MG/2 ML VIAL IVP ONE (23:15)
[2017-05-10] MEDS ORDERED: MORPHINE SULFATE 4 MG/ML INJ IV PUSH ONE (23:15)
--- NOTE | 2017-05-10 23:27 | RADRPT ---
EXAM DATE/TIME: 05/10/2017 23:06 [place] COMPARISON: CT THORAX W CONTRAST, December 10, 2016, 3:50. CHEST PA & LAT, November 27, 2016, 2:35. CHEST SINGLE AP, March 17, 2017, 16:40. INDICATIONS : Short of breath. Vomiting. MEDICAL HISTORY : Chronic obstructive pulmonary disease. SURGICAL HISTORY : Right lung. ENCOUNTER: Initial ACUITY: 1 day PAIN SCORE: 0/10 LOCATION: Bilateral chest FINDINGS: Lungs are hyperinflated but focally clear. Stable slight blunting of the right costophrenic angle. Ca rdiac contours are unchanged. CONCLUSION: Hyperinflated lungs without focal infiltrate Cezar Morrow MD on May 10, 2017 at 23:22 Board Certified Radiologist. This report was verified electronically.
[2017-05-10 23:50] VITALS: BP 124/105; PULSE 97; RESP 20; O2SAT 100
[2017-05-10 23:58] LABS: AUTOMATED NEUTROPHIL # 3.7 TH/MM3 (1.8-7.7); BASOPHIL # 0.2 TH/MM3 (0-0.2); BASOPHIL % 3.6 % (0.0-2.0); EOSINOPHIL # 0.2 TH/MM3 (0-0.4); EOSINOPHIL % 2.6 % (0.0-4.0); HEMATOCRIT 49.3 % (35.0-46.0); HEMOGLOBIN 17.2 GM/DL (11.6-15.3); LYMPH % 26.4 % (9.0-44.0); LYMPHOCYTE # 1.5 TH/MM3 (1.0-4.8); MEAN CELL VOLUME 104.1 FL (80.0-100.0); MEAN CORPUSCULAR HEMOGLOBIN 36.3 PG (27.0-34.0); MEAN CORPUSCULAR HGB CONC 34.9 % (32.0-36.0); MEAN PLATELET VOLUME 6.7 FL (7.0-11.0); MONO % 5.1 % (0.0-8.0); MONOCYTE # 0.3 TH/MM3 (0-0.9); NEUT % 62.3 % (16.0-70.0); PLATELET COUNT 158 TH/MM3 (150-450); RED BLOOD COUNT 4.73 MIL/MM3 (4.00-5.30); RED CELL DISTRIBUTION WIDTH 14.9 % (11.6-17.2); WHITE BLOOD COUNT 5.9 TH/MM3 (4.0-11.0)
[2017-05-11] VITALS (7 sets, daily range): BP systolic 92–124; BP diastolic 63–86; PULSE 86–103; RESP 16–20; TEMP 95.9–98.2; O2SAT 90–100
[2017-05-11 00:05] LABS: CHLORIDE 95 MEQ/L (98-107); SODIUM (NA) 130 MEQ/L (136-145)
[2017-05-11 00:09] LABS: ALBUMIN 3.3 GM/DL (3.4-5.0); BICARBONATE 23.5 MEQ/L (21.0-32.0); BLOOD UREA NITROGEN 2 MG/DL (7-18); CALCIUM 8.8 MG/DL (8.5-10.1); GLUCOSE,RANDOM 82 MG/DL (74-106)
[2017-05-11 00:12] LABS: ALT (GPT) 57 U/L (10-53); AST (GOT) 150 U/L (15-37); CREATININE 0.52 MG/DL (0.50-1.00); GLOMERULAR FILTRATION RATE 126 ML/MIN (>89)
[2017-05-11 00:13] LABS: TOTAL BILIRUBIN ADULT 0.5 MG/DL (0.2-1.0)
[2017-05-11 00:14] LABS: TOTAL PROTEIN 8.5 GM/DL (6.4-8.2)
[2017-05-11 00:15] LABS: ALKALINE PHOSPHATASE 269 U/L (45-117)
[2017-05-11 00:17] LABS: TROPONIN I LESS THAN 0.02 NG/ML (0.02-0.05)
[2017-05-11] MEDS: SODIUM CHLORIDE 0.9% FLUSH 10 ML FLUSH IV FLUSH PRN (00:29)
[2017-05-11] MEDS ORDERED: KETOROLAC TROMETHAMINE 30 MG/ML (IVP) VIAL IV PUSH ONE (00:30)
[2017-05-11] MEDS ORDERED: LORazepam 2 MG TAB PO PRN (00:45)
[2017-05-11] MEDS ORDERED: BISACODYL 10 MG SUPP RECTAL PRN (00:45)
[2017-05-11] MEDS ORDERED: NALOXONE HCL 0.4 MG/ML AMP IV PUSH PRN (00:45)
[2017-05-11] MEDS ORDERED: ACETAMINOPHEN 325 MG TAB PO PRN (00:45)
[2017-05-11] MEDS ORDERED: LORazepam 1 MG TAB PO PRN (00:45)
[2017-05-11] MEDS ORDERED: LORazepam 2 MG/ML VIAL IV PUSH PRN ×3 (00:45)
[2017-05-11] MEDS ORDERED: SODIUM CHLORIDE 0.9% FLUSH 10 ML FLUSH IV FLUSH PRN (00:45)
[2017-05-11] MEDS ORDERED: FLUMAZENIL 0.5 MG/5 ML VIAL IV PUSH PRN (00:45)
[2017-05-11] MEDS ORDERED: LACTULOSE SYRUP 20 GM/30 ML CUP PO PRN (00:45)
[2017-05-11] MEDS ORDERED: SENNOSIDES 8.6 MG TAB PO PRN (00:45)
[2017-05-11] MEDS ORDERED: MAGNESIUM HYDROXIDE SUSP 30 ML CUP PO PRN (00:45)
[2017-05-11] MEDS: SODIUM CHLOR 0.9% 1000 ML INJ 1,000 ML IV SCH ×3 (01:31→21:57)
[2017-05-11] MEDS: LORazepam 2 MG/ML VIAL IV PUSH PRN ×5 (02:37→21:56)
[2017-05-11] MEDS: THIAMINE INJ 100 MG in SODIUM CHLORIDE 0.9% INJ 100 ML IV SCH (02:41)
[2017-05-11] MEDS: MULTIVITAMIN INJ 10 ML, FOLIC ACID INJ 1 MG in SODIUM CHLORID 0.9% 500 ML INJ 500 ML IV SCH (02:41)
--- NOTE | 2017-05-11 08:03 | HHI.HP ---
[facility] No Primary Care Physician Admission Diagnosis Acute alcoholic pancreatitis, alcohol intoxication Diagnoses: (1) Acute alcoholic pancreatitis Chief Complaint: Severe intractable Travel History International Travel<30 Days: No Contact w/Intl Traveler <30 Da: No Traveled to Known Affected Are: No History of Present Illness This is a pleasant 47-year-old female patient with a known medical history of alcohol abuse and tobacco abuse who presented to the ED with complaints of severe intractable abdominal pain. Patient states that the abdominal pain started 2 days ago, initially began in her periumbilical area and radiated up her epigastric area and left flank and back. She rates the pain a 10 out of 10 at its worst on pain scale, characterized the pain as sharp and aching in nature. Patient does admit to drinking up to 8-9 beers per day for many years. She does admit to a history of pancreatitis and similar symptoms in the past. She does state her last alcoholic drink was yesterday. Does admit to previous withdrawals if she does not drink alcohol. Patient denies any associated symptoms such as fever, chills, cough, vomiting, diarrhea or dysuria. It should be noted that patient has a history of umbilical clot, was on Coumadin 2 years ago and has not taken this since. Labs on presentation showing hyponatremia, elevated MCV, elevated liver enzymes, bilirubin 0.5. Lipase 2828. Ethanol alcohol 257. Review of Systems Constitutional: DENIES: Fever, Chills Eyes: DENIES: Blurred vision, Diplopia Respiratory: DENIES: Cough, Sputum production, Shortness of breath Cardiovascular: DENIES: Chest pain Gastrointestinal: COMPLAINS OF: Abdominal pain, DENIES: Black stools, Bloody stools, Constipation, Diarrhea, Nausea, Vomiting Musculoskeletal: DENIES: Joint pain Psychiatric: DENIES: Anxiety Except as stated in HPI: all other systems reviewed are Neg Past Family Social History Past Medical History Alcohol abuse History of umbilical blood clot, was on Coumadin 2 years ago. Anxiety Tobacco abuse Past Surgical History Breast augmentation Right thoracotomy secondary to blebs. Tonsillectomy Reported Medications Active No Active Prescriptions or Reported Medications Allergies: Coded Allergies: penicillin G (Unverified Allergy, Severe, Hives, 05/06/17) Active Ordered Medications Current Medications Medications (Trade) Dose Ordered Sig/Maulik Route Start Time Stop Time Status Last Admin (NS Flush) 2 ml UNSCH PRN IV FLUSH 05/10/17 23:15 05/11/17 00:29 Sodium Chloride 1,000 ml @ 100 mls/hr Q10H IV 05/11/17 00:38 05/11/17 01:31 (NS Flush) 2 ml UNSCH PRN IV FLUSH 05/11/17 00:45 (NS Flush) 2 ml BID IV FLUSH 05/11/17 09:00 (Tylenol) 650 mg Q4H PRN PO 05/11/17 00:45 (Zofran Inj) 4 mg Q6H PRN IVP 05/11/17 00:45 (Narcan Inj) 0.4 mg UNSCH PRN IV PUSH 05/11/17 00:45 (Estela-Colace) 1 tab BID PO 05/11/17 09:00 (Milk Of Magnesia Liq) 30 ml Q12H PRN PO 05/11/17 00:45 (Senokot) 17.2 mg Q12H PRN PO 05/11/17 00:45 (Dulcolax Supp) 10 mg DAILY PRN RECTAL 05/11/17 00:45 (Lactulose Liq) 30 ml DAILY PRN PO 05/11/17 00:45 Multivitamins 10 ml/Folic Acid 1 mg/Sodium Chloride 510.2 ml @ 125 mls/hr Q24H IV 05/11/17 02:00 05/16/17 01:59 05/11/17 02:41 Thiamine HCl 100 mg/Sodium Chloride 101 ml @ 100 mls/hr Q24H IV 05/11/17 02:00 05/14/17 01:59 05/11/17 02:41 (Vitamin B1) 100 mg DAILY PO 05/14/17 09:00 (Romazicon Inj) 0.2 mg Q1M PRN IV PUSH 05/11/17 00:45 (Ativan) 1 mg Q4H PRN PO 05/11/17 00:45 (Ativan Inj) 1 mg Q4H PRN IV PUSH 05/11/17 00:45 (Ativan) 2 mg Q2H PRN PO 05/11/17 00:45 (Ativan Inj) 2 mg Q2H PRN IV PUSH 05/11/17 00:45 05/11/17 02:37 (Ativan Inj) 2 mg Q1H PRN IV PUSH 05/11/17 00:45 (Ativan Inj) 2 mg Q15M PRN IV PUSH 05/11/17 00:45 05/11/17 10:07 (Toradol Inj) 15 mg Q6H PRN IV PUSH 05/11/17 11:00 05/16/17 10:59 Family History Denies any significant family medical history. Social History Patient states she smokes 1 pack per day cigarettes since her teen years. Does admit to drinking 8-9 beers per day. Denies any illicit drug use. Physical Exam Vital Signs Vital Signs Date Time Temp Pulse Resp B/P (MAP) Pulse Ox O2 Delivery O2 Flow Rate FiO2 05/11/17 02:34 98.2 94 20 92/64 (73) 92 05/11/17 01:40 97 18 105/67 (80) 96 05/11/17 00:50 92 18 106/63 (77) 100 Room Air 05/10/17 23:50 97 20 124/105 (111) 100 Room Air 05/10/17 23:02 18 05/10/17 22:50 98.7 88 18 116/67 (83) 100 05/10/17 22:34 98.7 114 20 135/79 (97) 99 Physical Exam GENERAL: Well-developed, thin appearing female patient in [facility]. SKIN: Warm and dry. No rash. HEAD: Normocephalic. Atraumatic. EYES: Pupils equal and round. No scleral icterus. No injection or drainage. ENT: No nasal bleeding or discharge. Mucous membranes pink and moist. NECK: Supple. Trachea midline. CARDIOVASCULAR: Regular rate and rhythm. S1, S2 noted. No murmur appreciated. RESPIRATORY: No accessory muscle use. Clear to auscultation. Breath sounds equal bilaterally. GASTROINTESTINAL: Abdomen soft, nondistended, tender to palpation. Normoactive bowel sounds x4. MUSCULOSKELETAL: No obvious deformities. Extremities without clubbing, cyanosis , or edema. NEUROLOGICAL: Awake and alert. No obvious cranial nerve deficits. Motor grossly within normal limits. 5/5 muscle strength in bilateral upper and lower extremities. Normal speech. PSYCHIATRIC: Appropriate mood and affect; insight and judgment normal. Laboratory Laboratory Tests Test 05/10/17 23:54 05/11/17 00:15 White Blood Count 5.9 Red Blood Count 4.73 Hemoglobin 17.2 Hematocrit 49.3 Mean Corpuscular Volume 104.1 Mean Corpuscular Hemoglobin 36.3 Mean Corpuscular Hemoglobin Concent 34.9 Red Cell Distribution Width 14.9 Platelet Count 158 Mean Platelet Volume 6.7 Neutrophils (%) (Auto) 62.3 Lymphocytes (%) (Auto) 26.4 Monocytes (%) (Auto) 5.1 Eosinophils (%) (Auto) 2.6 Basophils (%) (Auto) 3.6 Neutrophils # (Auto) 3.7 Lymphocytes # (Auto) 1.5 Monocytes # (Auto) 0.3 Eosinophils # (Auto) 0.2 Basophils # (Auto) 0.2 CBC Comment DIFF FINAL Differential Comment Blood Urea Nitrogen 2 Creatinine 0.52 Random Glucose 82 Total Protein 8.5 Albumin 3.3 Calcium Level 8.8 Alkaline Phosphatase 269 Aspartate Amino Transf (AST/SGOT) 150 Alanine Aminotransferase (ALT/SGPT) 57 Total Bilirubin 0.5 Sodium Level 130 Potassium Level 3.5 Chloride Level 95 Carbon Dioxide Level 23.5 Anion Gap 12 Estimat Glomerular Filtration Rate 126 Total Creatine Kinase 63 Troponin I LESS THAN 0.02 Lipase 2828 Ethyl Alcohol Level 257 Lactic Acid Level 2.9 Result Diagram: 05/10/17 2354 05/10/17 2354 Imaging Last Impressions Chest X-Ray 05/10/17 2302 Signed Impressions: Service Date/Time: Wednesday, May 10, 2017 23:06 - CONCLUSION: Hyperinflated lungs without focal infiltrate Cezar Morrow MD Septic Shock Reassessment Septic shock perfusion: reassessment completed Caprini VTE Risk Assessment Caprini VTE Risk Assessment: No/Low Risk (score <= 1) Caprini Risk Assessment Model Point Value = 1 Point Value = 2 Point Value = 3 Point Value = 5 Age 41-60 Minor surgery BMI > 25 kg/m2 Swollen legs Varicose veins or History of unexplained or recurrent spontaneous Oral contraceptives or hormone replacement Sepsis (< 1 month) Serious lung disease, including pneumonia (< 1 month) Abnormal pulmonary function Acute myocardial infarction Congestive heart failure (< 1 month) History of inflammatory bowel disease Medical patient at bed rest Age 61-74 Arthroscopic surgery Major open surgery (> 45 min) Laparoscopic surgery (> 45 min) Malignancy Confined to bed (> 72 hours) Immobilizing plaster cast Central venous access Age >= 75 History of VTE Family history of VTE Factor V Leiden Prothrombin [id number] Lupus anticoagulant Anticardiolipin antibodies Elevated serum homocysteine Heparin-induced thrombocytopenia Other congenital or acquired thrombophilia Stroke (< 1 month) Elective arthroplasty Hip, pelvis, or leg fracture Acute spinal cord injury (< 1 month) Prophylaxis Regimen Total Risk Factor Score Risk Level Prophylaxis Regimen 0-1 Low Early ambulation 2 Moderate Order ONE of the following: *Sequential Compression Device (SCD) *Heparin 5000 units SQ BID 3-4 Higher Order ONE of the following medications: *Heparin 5000 units SQ TID *Enoxaparin/Lovenox 40 mg SQ daily (WT < 150 kg, CrCl > 30 mL/min) *Enoxaparin/Lovenox 30 mg SQ daily (WT < 150 kg, CrCl > 10-29 mL/min) *Enoxaparin/Lovenox 30 mg SQ BID (WT < 150 kg, CrCl > 30 mL/min) AND/OR *Sequential Compression Device (SCD) 5 or more Highest Order ONE of the following medications: *Heparin 5000 units SQ TID (Preferred with Epidurals) *Enoxaparin/Lovenox 40 mg SQ daily (WT < 150 kg, CrCl > 30 mL/min) *Enoxaparin/Lovenox 30 mg SQ daily (WT < 150 kg, CrCl > 10-29 mL/min) *Enoxaparin/Lovenox 30 mg SQ BID (WT < 150 kg, CrCl > 30 mL/min) AND *Sequential Compression Device (SCD) Assessment and Plan Problem List: (1) Acute alcoholic pancreatitis ICD Code: K85.2 - Alcohol induced acute pancreatitis Status: Acute Plan: Patient has been admitted for observation, meets admission criteria. Pain control with Toradol IV per request from patient, does not want IV morphine. Lipase 2828. Trend. Continue IV fluids, NS 100 mL's per hour. Keep nothing by mouth for now. Continue multivitamin, thiamine and folic acid. Monitor for withdrawals, seizure precautions. Placed on CIWA protocol. Ativan IV available per protocol. Encouraged alcohol cessation. Hyponatremia suspect secondary to alcohol abuse. Will recheck labs today, follow. Problem Qualifiers (1) Acute alcoholic pancreatitis: Qualified Codes: K85.20 - Alcohol induced acute pancreatitis without necrosis or infection Kayley Ludwig May 11, 2017 08:03
[2017-05-11] MEDS ORDERED: MORPHINE SULFATE 2 MG/ML SYRINGE IV PUSH PRN (09:00)
[2017-05-11] MEDS: SODIUM CHLORIDE 0.9% FLUSH 10 ML FLUSH IV FLUSH SCH ×2 (09:00→21:55)
[2017-05-11] MEDS: DOCUSATE SODIUM 50 MG/SENNA 8.6 MG TAB PO SCH ×2 (09:00→21:55)
[2017-05-11] MEDS: KETOROLAC TROMETHAMINE 30 MG/ML (IVP) VIAL IV PUSH PRN ×2 (12:19→19:03)
[2017-05-11 12:24] LABS: AUTOMATED NEUTROPHIL # 2.8 TH/MM3 (1.8-7.7); BASOPHIL # 0.1 TH/MM3 (0-0.2); BASOPHIL % 1.3 % (0.0-2.0); EOSINOPHIL # 0.2 TH/MM3 (0-0.4); EOSINOPHIL % 3.7 % (0.0-4.0); HEMATOCRIT 38.4 % (35.0-46.0); HEMOGLOBIN 12.8 GM/DL (11.6-15.3); LYMPH % 26.7 % (9.0-44.0); LYMPHOCYTE # 1.2 TH/MM3 (1.0-4.8); MEAN CELL VOLUME 104.7 FL (80.0-100.0); MEAN CORPUSCULAR HGB CONC 33.4 % (32.0-36.0); MEAN PLATELET VOLUME 6.5 FL (7.0-11.0); MONO % 5.6 % (0.0-8.0); MONOCYTE # 0.3 TH/MM3 (0-0.9); NEUT % 62.7 % (16.0-70.0); PLATELET COUNT 178 TH/MM3 (150-450); RED BLOOD COUNT 3.67 MIL/MM3 (4.00-5.30); RED CELL DISTRIBUTION WIDTH 14.6 % (11.6-17.2); WHITE BLOOD COUNT 4.6 TH/MM3 (4.0-11.0)
[2017-05-11 12:34] LABS: CHLORIDE 106 MEQ/L (98-107); SODIUM (NA) 138 MEQ/L (136-145)
[2017-05-11 12:44] LABS: ALBUMIN 2.6 GM/DL (3.4-5.0); ALKALINE PHOSPHATASE 200 U/L (45-117); ALT (GPT) 38 U/L (10-53); AST (GOT) 86 U/L (15-37); BICARBONATE 24.7 MEQ/L (21.0-32.0); BLOOD UREA NITROGEN 4 MG/DL (7-18); CALCIUM 8.2 MG/DL (8.5-10.1); CREATININE 0.41 MG/DL (0.50-1.00); GLOMERULAR FILTRATION RATE 166 ML/MIN (>89); GLUCOSE,RANDOM 78 MG/DL (74-106); TOTAL BILIRUBIN ADULT 0.9 MG/DL (0.2-1.0); TOTAL PROTEIN 6.2 GM/DL (6.4-8.2)
--- NOTE | 2017-05-11 16:48 | EKG ---
Date Performed: 05/10/2017 Time Performed: 23:18:52 PTAGE: 47 years EKG: SINUS TACHYCARDIA POSSIBLE LEFT ATRIAL ENLARGEMENT SEPTAL MYOCARDIAL INFARCTION Since previ ous tracing, no significant change noted ABNORMAL ECG PREVIOUS TRACING : 03/17/2017 16.11 DOCTOR: Marco Acosta Interpretating Date/Time 05/11/2017 16:44:49
[2017-05-12] VITALS: BP 115/70; PULSE 97; RESP 16; TEMP 98.5; O2SAT 91
[2017-05-12] MEDS: KETOROLAC TROMETHAMINE 30 MG/ML (IVP) VIAL IV PUSH PRN ×4 (00:49→18:25)
[2017-05-12] MEDS: SODIUM CHLORIDE 0.9% FLUSH 10 ML FLUSH IV FLUSH PRN ×2 (00:50→06:16)
[2017-05-12] MEDS: LORazepam 2 MG/ML VIAL IV PUSH PRN ×5 (00:50→22:33)
[2017-05-12] MEDS: THIAMINE INJ 100 MG in SODIUM CHLORIDE 0.9% INJ 100 ML IV SCH (01:22)
[2017-05-12] MEDS: MULTIVITAMIN INJ 10 ML, FOLIC ACID INJ 1 MG in SODIUM CHLORID 0.9% 500 ML INJ 500 ML IV SCH (01:22)
[2017-05-12 07:21] LABS: AUTOMATED NEUTROPHIL # 2.9 TH/MM3 (1.8-7.7); BASOPHIL # 0.1 TH/MM3 (0-0.2); BASOPHIL % 1.4 % (0.0-2.0); EOSINOPHIL # 0.2 TH/MM3 (0-0.4); EOSINOPHIL % 4.2 % (0.0-4.0); HEMATOCRIT 35.2 % (35.0-46.0); HEMOGLOBIN 12.1 GM/DL (11.6-15.3); LYMPHOCYTE # 1.1 TH/MM3 (1.0-4.8); MEAN CORPUSCULAR HEMOGLOBIN 35.9 PG (27.0-34.0); MEAN CORPUSCULAR HGB CONC 34.6 % (32.0-36.0); MEAN PLATELET VOLUME 6.9 FL (7.0-11.0); MONOCYTE # 0.2 TH/MM3 (0-0.9); NEUT % 65.4 % (16.0-70.0); PLATELET COUNT 103 TH/MM3 (150-450); RED BLOOD COUNT 3.38 MIL/MM3 (4.00-5.30); RED CELL DISTRIBUTION WIDTH 14.5 % (11.6-17.2); WHITE BLOOD COUNT 4.5 TH/MM3 (4.0-11.0)
[2017-05-12 07:26] LABS: CHLORIDE 101 MEQ/L (98-107); SODIUM (NA) 134 MEQ/L (136-145)
[2017-05-12 07:31] LABS: ALBUMIN 2.3 GM/DL (3.4-5.0); BICARBONATE 23.2 MEQ/L (21.0-32.0)
[2017-05-12 07:32] LABS: BLOOD UREA NITROGEN 3 MG/DL (7-18); GLUCOSE,RANDOM 53 MG/DL (74-106)
[2017-05-12 07:34] LABS: ALT (GPT) 31 U/L (10-53); AST (GOT) 74 U/L (15-37)
[2017-05-12 07:35] LABS: GLOMERULAR FILTRATION RATE 379 ML/MIN (>89)
[2017-05-12 07:36] LABS: TOTAL BILIRUBIN ADULT 1.1 MG/DL (0.2-1.0); TOTAL PROTEIN 5.9 GM/DL (6.4-8.2)
[2017-05-12 07:37] LABS: ALKALINE PHOSPHATASE 179 U/L (45-117)
[2017-05-12 08:00] VITALS: BP 121/72; PULSE 95; RESP 16; TEMP 97.8; O2SAT 95
--- NOTE | 2017-05-12 08:07 | HHI.PR ---
Subjective Remarks Acute pancreatitis. Patient seen and examined, lying in bed with complaint of continued pain. Has had several sips of water that has seemed to worsen pain. Lipase is trending down today. We will add morphine IV for breakthrough pain. Continued alcohol withdrawal protocol. Vital signs are stable. Objective Vitals Vital Signs Date Time Temp Pulse Resp B/P (MAP) Pulse Ox O2 Delivery O2 Flow Rate FiO2 05/12/17 07:15 16 05/12/17 00:00 98.5 97 16 115/70 (85) 91 05/11/17 20:00 97.1 91 16 124/73 (90) 93 05/11/17 16:00 98.1 103 16 123/86 (98) 93 05/11/17 12:00 95.9 94 16 100/73 (82) 90 I/O 05/11/17 05/11/17 05/11/17 05/12/17 05/12/17 05/12/17 06:59 14:59 22:59 06:59 14:59 22:59 Intake Total 400 ml 0 ml 1000 ml Balance 400 ml 0 ml 1000 ml Intake Oral 0 ml 0 ml 0 ml IV Total 400 ml 1000 ml # Voids 1 4 # Bowel Movements 0 Result Diagram: 05/12/17 0655 05/12/17 0655 Imaging Last Impressions Chest X-Ray 05/10/172301 Signed Impressions: Service Date/Time: Wednesday, May 10, 2017 23:06 - CONCLUSION: Hyperinflated lungs without focal infiltrate Cezar Morrow MD Objective Remarks GENERAL: Well-developed, thin appearing female patient in [facility]. SKIN: Warm and dry. No rash. HEAD: Normocephalic. Atraumatic. EYES: Pupils equal and round. No scleral icterus. No injection or drainage. ENT: No nasal bleeding or discharge. Mucous membranes pink and moist. NECK: Supple. Trachea midline. CARDIOVASCULAR: Regular rate and rhythm. S1, S2 noted. No murmur appreciated. RESPIRATORY: No accessory muscle use. Clear to auscultation. Breath sounds equal bilaterally. GASTROINTESTINAL: Abdomen soft, nondistended, tender to palpation. Normoactive bowel sounds x4. MUSCULOSKELETAL: No obvious deformities. Extremities without clubbing, cyanosis , or edema. NEUROLOGICAL: Awake and alert. No obvious cranial nerve deficits. Motor grossly within normal limits. 5/5 muscle strength in bilateral upper and lower extremities. Normal speech. PSYCHIATRIC: Appropriate mood and affect; insight and judgment normal. A/P Problem List: (1) Acute alcoholic pancreatitis ICD Code: K85.2 - Alcohol induced acute pancreatitis Status: Acute Plan: Pain control with Toradol IV per request from patient, this has not been helping pain overnight. We will add IV morphine for breakthrough pain. Lipase trending down.. Continue IV fluids, NS 100 mL's per hour. Will attempt clear liquids for now. Assess response. Continue multivitamin, thiamine and folic acid. Monitor for withdrawals, seizure precautions. Placed on CIWA protocol. Ativan IV available per protocol. Encouraged alcohol cessation. Hyponatremia improving with IV fluid. (2) Hypokalemia ICD Code: E87.6 - Hypokalemia Status: Acute Plan: Potassium 3.0 today. Replaced. Follow BMP. (3) Transaminitis ICD Code: R74.0 - Transaminitis Status: Acute Plan: With thrombocytopenia. From alcohol abuse. Will continue to trend. Continue to monitor. DVT prophylaxis: SCDs. Problem Qualifiers (1) Acute alcoholic pancreatitis: Qualified Codes: K85.20 - Alcohol induced acute pancreatitis without necrosis or infection Kayley Ludwig May 12, 2017 08:06
[2017-05-12] MEDS: MORPHINE SULFATE 2 MG/ML SYRINGE IV PRN ×3 (08:59→19:43)
[2017-05-12] MEDS: DOCUSATE SODIUM 50 MG/SENNA 8.6 MG TAB PO SCH ×2 (09:00→20:04)
[2017-05-12] MEDS: POTASSIUM CHLOR 20 MEQ PREMIX 100 ML IV SCH ×2 (09:02→12:27)
[2017-05-12] MEDS: SODIUM CHLORIDE 0.9% FLUSH 10 ML FLUSH IV FLUSH SCH ×2 (09:03→19:43)
[2017-05-12 12:00] VITALS: BP 139/75; PULSE 69; RESP 18; TEMP 97; O2SAT 97
[2017-05-12 16:00] VITALS: BP 125/72; PULSE 66; RESP 16; TEMP 97.3; O2SAT 95
[2017-05-12 20:00] VITALS: BP 102/77; PULSE 104; RESP 20; TEMP 97.8; O2SAT 96
[2017-05-13] VITALS: BP 127/88; PULSE 109; RESP 20; TEMP 97.5; O2SAT 100
[2017-05-13] MEDS: MORPHINE SULFATE 2 MG/ML SYRINGE IV PRN ×4 (00:12→23:34)
[2017-05-13] MEDS: THIAMINE INJ 100 MG in SODIUM CHLORIDE 0.9% INJ 100 ML IV SCH (02:18)
[2017-05-13] MEDS: MULTIVITAMIN INJ 10 ML, FOLIC ACID INJ 1 MG in SODIUM CHLORID 0.9% 500 ML INJ 500 ML IV SCH (02:18)
[2017-05-13 06:54] LABS: AUTOMATED NEUTROPHIL # 2.3 TH/MM3 (1.8-7.7); BASOPHIL # 0.1 TH/MM3 (0-0.2); BASOPHIL % 2.1 % (0.0-2.0); CHLORIDE 96 MEQ/L (98-107); EOSINOPHIL # 0.2 TH/MM3 (0-0.4); EOSINOPHIL % 5.2 % (0.0-4.0); HEMATOCRIT 36.6 % (35.0-46.0); HEMOGLOBIN 12.3 GM/DL (11.6-15.3); LYMPH % 27.2 % (9.0-44.0); MEAN CELL VOLUME 103.5 FL (80.0-100.0); MEAN CORPUSCULAR HEMOGLOBIN 34.7 PG (27.0-34.0); MEAN CORPUSCULAR HGB CONC 33.6 % (32.0-36.0); MEAN PLATELET VOLUME 6.9 FL (7.0-11.0); MONO % 5.8 % (0.0-8.0); MONOCYTE # 0.2 TH/MM3 (0-0.9); NEUT % 59.7 % (16.0-70.0); PLATELET COUNT 87 TH/MM3 (150-450); RED BLOOD COUNT 3.54 MIL/MM3 (4.00-5.30); RED CELL DISTRIBUTION WIDTH 13.3 % (11.6-17.2); SODIUM (NA) 130 MEQ/L (136-145); WHITE BLOOD COUNT 3.9 TH/MM3 (4.0-11.0)
[2017-05-13 06:58] LABS: CALCIUM 8.5 MG/DL (8.5-10.1)
[2017-05-13 06:59] LABS: ALBUMIN 2.5 GM/DL (3.4-5.0); BICARBONATE 25.9 MEQ/L (21.0-32.0); BLOOD UREA NITROGEN 2 MG/DL (7-18); GLUCOSE,RANDOM 71 MG/DL (74-106)
[2017-05-13 07:01] LABS: ALT (GPT) 29 U/L (10-53); AST (GOT) 56 U/L (15-37)
[2017-05-13 07:02] LABS: CREATININE 0.22 MG/DL (0.50-1.00); GLOMERULAR FILTRATION RATE 340 ML/MIN (>89)
[2017-05-13 07:03] LABS: TOTAL BILIRUBIN ADULT 1.2 MG/DL (0.2-1.0); TOTAL PROTEIN 6.4 GM/DL (6.4-8.2)
[2017-05-13 07:04] LABS: ALKALINE PHOSPHATASE 176 U/L (45-117)
[2017-05-13 08:00] VITALS: BP 137/82; PULSE 100; RESP 16; TEMP 98.6; O2SAT 94
[2017-05-13] MEDS ORDERED: POTASSIUM CHLORIDE 20 MEQ CONTROLLED RELEASE TAB PO ONE (08:00)
[2017-05-13] MEDS ORDERED: POTASSIUM CHLOR 20 MEQ PREMIX 100 ML IV ONE (08:00)
[2017-05-13] MEDS: DOCUSATE SODIUM 50 MG/SENNA 8.6 MG TAB PO SCH ×2 (09:00→21:10)
--- NOTE | 2017-05-13 10:05 | HHI.PR ---
Subjective Remarks Follow-up acute pancreatitis. Patient seen and examined, patient still complaining of severe left-sided abdominal pain. Will obtain abdominal CT today. Follow. Patient has been tolerating p.o. intake with no nausea or vomiting. No diarrhea. PT will be ordered for evaluation and recommendations. Patient has been too sore to get out of bed. Objective Vitals Vital Signs Date Time Temp Pulse Resp B/P (MAP) Pulse Ox O2 Delivery O2 Flow Rate FiO2 05/13/17 08:00 98.6 100 16 137/82 (100) 94 05/13/17 00:00 97.5 109 20 127/88 (101) 100 05/12/17 20:00 97.8 104 20 102/77 (85) 96 05/12/17 19:25 18 05/12/17 16:00 97.3 66 16 125/72 (89) 95 05/12/17 15:56 16 05/12/17 12:00 97.0 69 18 139/75 (96) 97 I/O 05/12/17 05/12/17 05/12/17 05/13/17 05/13/17 05/13/17 07:00 15:00 23:00 07:00 15:00 23:00 Intake Total 1100 ml 600 ml 510 ml 660 ml Balance 1100 ml 600 ml 510 ml 660 ml Intake Oral 500 ml 660 ml IV Total 1100 ml 100 ml 510 ml # Voids 4 2 2 # Bowel Movements 0 0 Result Diagram: 05/13/17 0630 05/13/17 0630 Objective Remarks GENERAL: Well-developed, thin appearing female patient in [place]. SKIN: Warm and dry. No rash. HEAD: Normocephalic. Atraumatic. EYES: Pupils equal and round. No scleral icterus. No injection or drainage. ENT: No nasal bleeding or discharge. Mucous membranes pink and moist. NECK: Supple. Trachea midline. CARDIOVASCULAR: Regular rate and rhythm. S1, S2 noted. No murmur appreciated. RESPIRATORY: No accessory muscle use. Clear to auscultation. Breath sounds equal bilaterally. GASTROINTESTINAL: Abdomen soft, nondistended, tender to palpation. Normoactive bowel sounds x4. MUSCULOSKELETAL: No obvious deformities. Extremities without clubbing, cyanosis , or edema. NEUROLOGICAL: Awake and alert. No obvious cranial nerve deficits. Motor grossly within normal limits. 5/5 muscle strength in bilateral upper and lower extremities. Normal speech. PSYCHIATRIC: Appropriate mood and affect; insight and judgment normal. A/P Problem List: (1) Acute alcoholic pancreatitis ICD Code: K85.2 - Alcohol induced acute pancreatitis Status: Acute Plan: Pain control with Toradol IV per request from patient. We will add IV morphine for breakthrough pain. Pain is still present. Will obtain abdominal/ pelvis CT. Follow. Lipase trending down. Continue IV fluids, NS 100 mL's per hour. Tolerating clear liquids. Advance to full liquids. Assess response. Continue multivitamin, thiamine and folic acid. Monitor for withdrawals, seizure precautions. Placed on CIWA protocol. Ativan IV available per protocol. Encouraged alcohol cessation. Hyponatremia improving with IV fluid. Ordered for PT eval and recommendations. Patient has has increased pain and has not been ambulating. Orders for nursing to get patient OOB minimum of 2 x per day. SCDs. (2) Hypokalemia ICD Code: E87.6 - Hypokalemia Status: Acute Plan: Replaced. Follow BMP. (3) Transaminitis ICD Code: R74.0 - Transaminitis Status: Acute Plan: With thrombocytopenia. From alcohol abuse. Will continue to trend. Continue to monitor. Follow CT abdomen/pelvis results. DVT prophylaxis: SCDs. Problem Qualifiers (1) Acute alcoholic pancreatitis: Qualified Codes: K85.20 - Alcohol induced acute pancreatitis without necrosis or infection Kayley Ludwig May 13, 2017 10:05
[2017-05-13] MEDS: NS + KCL 20 MEQ INJ 1,000 ML IV SCH ×2 (10:38→10:47)
[2017-05-13] MEDS: SODIUM CHLORIDE 0.9% FLUSH 10 ML FLUSH IV FLUSH SCH ×2 (10:48→21:00)
[2017-05-13] MEDS: KETOROLAC TROMETHAMINE 30 MG/ML (IVP) VIAL IV PUSH PRN ×2 (10:49→18:37)
[2017-05-13] MEDS: LORazepam 2 MG/ML VIAL IV PUSH PRN (11:00)
[2017-05-13 12:00] VITALS: BP 118/90; PULSE 93; RESP 18; TEMP 96; O2SAT 100
[2017-05-13] MEDS ORDERED: DIATRIZOATE MEGLUM/DIATRIZOATE SOD 9 ML CUP PO ONE (12:00)
[2017-05-13] MEDS ORDERED: IOHEXOL 350 MG/ML 10 ML VIAL (for RAD DIAG) IVCONTRAST ONE (15:16)
--- NOTE | 2017-05-13 15:38 | RADRPT ---
EXAM DATE/TIME: 05/13/2017 15:06 [facility] COMPARISON: CT THORAX W CONTRAST, December 10, 2016, 3:50. CT ABDOMEN & PELVIS W CONTRAST, June 22, 2016, 22:25. INDICATIONS : Left abdominal pain. IV CONTRAST: 75 cc Omnipaque 350 (iohexol) IV ORAL CONTRAST: Prescribed oral contrast ingested. RADIATION DOSE: 4.44 CTDIvol (mGy) MEDICAL HISTORY : Pancreatitis. SURGICAL HISTORY : None. ENCOUNTER: Initial ACUITY: 2 days PAIN SCALE: 10/10 LOCATION: Left Abdomen. TECHNIQUE: Volumetric scanning of the abdomen and pelvis was performed. Using automated exposure control and ad justment of the mA and/or kV according to patient size, radiation dose was kept as low as reasonably achievable to obtain optimal diagnostic quality images. DICOM format image data is available electro nically for review and comparison. FINDINGS: LOWER LUNGS: There is a 7 mm focal opacity in the posterior right lower lung which is a new finding from prior exa m. Previously noted areas of consolidation in the anterior right lower lung and medial left lower kelly ng have resolved. LIVER: Diffuse fatty change throughout the liver without focal lesion.. There is no dilation of the biliary tree. No calcified gallstones. SPLEEN: Normal size without lesion. PANCREAS: Within normal limits. No peripancreatic fluid. KIDNEYS: Normal in size and shape. There is no mass, stone or hydronephrosis. ADRENAL GLANDS: Within normal limits. VASCULAR: There is no aortic aneurysm. BOWEL/MESENTERY: No dilated loops of small or large bowel. Oral contrast passes through to the rectum. There is a mo derate amount of free fluid in the right pelvis measuring up to 3 cm in width. ABDOMINAL WALL: Within normal limits. RETROPERITONEUM: There is no lymphadenopathy. BLADDER: No wall thickening or mass. REPRODUCTIVE: Within normal limits. INGUINAL: There is no lymphadenopathy or hernia. MUSCULOSKELETAL: Within normal limits for patient age. CONCLUSION: 1. Moderate amount of free fluid in the right pelvis. 2. Steatosis of the liver. 3. Small focal area of infiltrate in the medial right lower lung. 4. No peripancreatic fluid collections seen. Mario Neri MD on May 13, 2017 at 15:31 Board Certified Radiologist. This report was verified electronically.
[2017-05-13 16:00] VITALS: BP 134/83; PULSE 84; RESP 16; TEMP 96; O2SAT 97
[2017-05-13] MEDS: LEVOFLOXACIN 750 MG TAB PO SCH (17:30)
[2017-05-13 20:00] VITALS: BP 104/69; PULSE 92; RESP 20; TEMP 98.1; O2SAT 99
[2017-05-14] VITALS: BP 104/62; PULSE 101; RESP 18; TEMP 98; O2SAT 100
[2017-05-14] MEDS: KETOROLAC TROMETHAMINE 30 MG/ML (IVP) VIAL IV PUSH PRN ×2 (00:38→08:33)
[2017-05-14] MEDS: NS + KCL 20 MEQ INJ 1,000 ML IV SCH ×2 (00:41→03:53)
[2017-05-14] MEDS: MULTIVITAMIN INJ 10 ML, FOLIC ACID INJ 1 MG in SODIUM CHLORID 0.9% 500 ML INJ 500 ML IV SCH (02:53)
[2017-05-14] MEDS: ONDANSETRON HCL 4 MG/2 ML VIAL IVP PRN ×2 (03:02→08:39)
[2017-05-14 07:04] LABS: AUTOMATED NEUTROPHIL # 1.4 TH/MM3 (1.8-7.7); BASOPHIL # 0.1 TH/MM3 (0-0.2); EOSINOPHIL # 0.2 TH/MM3 (0-0.4); EOSINOPHIL % 5.6 % (0.0-4.0); HEMATOCRIT 33.6 % (35.0-46.0); LYMPH % 35.3 % (9.0-44.0); MEAN CELL VOLUME 104.9 FL (80.0-100.0); MEAN CORPUSCULAR HEMOGLOBIN 34.3 PG (27.0-34.0); MEAN CORPUSCULAR HGB CONC 32.6 % (32.0-36.0); MEAN PLATELET VOLUME 7.4 FL (7.0-11.0); MONO % 10.5 % (0.0-8.0); MONOCYTE # 0.3 TH/MM3 (0-0.9); NEUT % 45.6 % (16.0-70.0); PLATELET COUNT 76 TH/MM3 (150-450); RED BLOOD COUNT 3.21 MIL/MM3 (4.00-5.30); RED CELL DISTRIBUTION WIDTH 13.6 % (11.6-17.2)
[2017-05-14 07:31] LABS: CALCIUM 8.4 MG/DL (8.5-10.1)
[2017-05-14 07:32] LABS: ALBUMIN 2.2 GM/DL (3.4-5.0); BICARBONATE 24.3 MEQ/L (21.0-32.0); BLOOD UREA NITROGEN 1 MG/DL (7-18); GLUCOSE,RANDOM 92 MG/DL (74-106)
[2017-05-14 07:34] LABS: ALT (GPT) 26 U/L (10-53); AST (GOT) 54 U/L (15-37)
[2017-05-14 07:35] LABS: GLOMERULAR FILTRATION RATE 237 ML/MIN (>89)
[2017-05-14 07:36] LABS: TOTAL BILIRUBIN ADULT 0.6 MG/DL (0.2-1.0); TOTAL PROTEIN 5.7 GM/DL (6.4-8.2)
[2017-05-14 07:37] LABS: ALKALINE PHOSPHATASE 157 U/L (45-117)
[2017-05-14] MEDS ORDERED: GETGO ROLLING W1 MI1 (07:39)
--- NOTE | 2017-05-14 07:48 | HHI.PR ---
Subjective Remarks Follow-up acute pancreatitis. Patient seen and examined, lying in bed with continued complaints of abdominal pain, does state that the pain has improved slightly. Worked with PT yesterday was out of bed did well. Tolerating full liquid diet, denies any nausea or vomiting. She does state that she is going to try to scale back on p.o. intake today due to abdominal pain. Vital signs are stable. Afebrile Objective Vitals Vital Signs Date Time Temp Pulse Resp B/P (MAP) Pulse Ox O2 Delivery O2 Flow Rate FiO2 05/14/17 00:00 98.0 101 18 104/62 (76) 100 05/13/17 20:00 98.1 92 20 104/69 (81) 99 05/13/17 19:20 16 05/13/17 16:00 96.0 84 16 134/83 (100) 97 05/13/17 14:53 18 05/13/17 12:00 96.0 93 18 118/90 (99) 100 05/13/17 08:00 98.6 100 16 137/82 (100) 94 I/O 05/13/17 05/13/17 05/13/17 05/14/17 05/14/17 05/14/17 07:00 15:00 23:00 07:00 15:00 23:00 Intake Total 510 ml 760 ml 2903 ml 1482 ml Balance 510 ml 760 ml 2903 ml 1482 ml Intake Oral 660 ml 990 ml 480 ml IV Total 510 ml 100 ml 1913 ml 1002 ml # Voids 3 4 # Bowel Movements 1 1 Result Diagram: 05/14/17 0624 05/14/17 0624 Imaging Last Impressions Abdomen/Pelvis CT 05/13/17 0000 Signed Impressions: Service Date/Time: May 15:06 - CONCLUSION: 1. Moderate amount of free fluid in the right pelvis. 2. Steatosis of the liver. 3. Small focal area of infiltrate in the medial right lower lung. 4. No peripancreatic fluid collections seen. Mario Neri MD Chest X-Ray 05/10/17 9735 Signed Impressions: Service Date/Time: Wednesday, May 10, 2017 23:06 - CONCLUSION: Hyperinflated lungs without focal infiltrate Cezar Morrow MD Objective Remarks GENERAL: Well-developed, thin appearing female patient in NAD. SKIN: Warm and dry. No rash. HEAD: Normocephalic. Atraumatic. EYES: Pupils equal and round. No scleral icterus. No injection or drainage. ENT: No nasal bleeding or discharge. Mucous membranes pink and moist. NECK: Supple. Trachea midline. CARDIOVASCULAR: Regular rate and rhythm. S1, S2 noted. No murmur appreciated. RESPIRATORY: No accessory muscle use. Clear to auscultation. Breath sounds equal bilaterally. GASTROINTESTINAL: Abdomen soft, nondistended, tender to palpation. Normoactive bowel sounds x4. MUSCULOSKELETAL: No obvious deformities. Extremities without clubbing, cyanosis , or edema. NEUROLOGICAL: Awake and alert. No obvious cranial nerve deficits. Motor grossly within normal limits. 5/5 muscle strength in bilateral upper and lower extremities. Normal speech. PSYCHIATRIC: Appropriate mood and affect; insight and judgment normal. A/P Problem List: (1) Acute alcoholic pancreatitis ICD Code: K85.2 - Alcohol induced acute pancreatitis Status: Acute Plan: Pain control with Toradol IV per request from patient. We will add IV morphine for breakthrough pain. Pain is still present. Abdominal/pelvis CT, reviewed showing steatosis of the liver, some free fluid. Lipase trending down. Continue IV fluids, NS 100 mL's per hour. Continue full liquid diet. Assess response. Continue multivitamin, thiamine and folic acid. Zofran available for nausea. Monitor for withdrawals, seizure precautions. Placed on CIWA protocol. Ativan IV available per protocol. Encouraged alcohol cessation. Hyponatremia improving with IV fluid. Ordered for PT eval and recommendations. Patient has has increased pain and has not been ambulating. Orders for nursing to get patient OOB minimum of 2 x per day. SCDs. (2) Hypokalemia ICD Code: E87.6 - Hypokalemia Status: Acute Plan: Awaiting labs this a.m. (3) Transaminitis ICD Code: R74.0 - Transaminitis Status: Acute Plan: With thrombocytopenia. From alcohol abuse. Will continue to trend. Continue to monitor. DVT prophylaxis: SCDs. Discharge Planning Likely 1-2 days, follow for clinical improvement. Patient with continue abdominal pain. Problem Qualifiers (1) Acute alcoholic pancreatitis: Qualified Codes: K85.20 - Alcohol induced acute pancreatitis without necrosis or infection Kayley Ludwig May 14, 2017 07:48
[2017-05-14 07:53] LABS: CHLORIDE 104 MEQ/L (98-107); SODIUM (NA) 138 MEQ/L (136-145)
[2017-05-14 08:00] VITALS: BP 110/65; PULSE 82; RESP 16; TEMP 97.4; O2SAT 98
[2017-05-14] MEDS: SODIUM CHLORIDE 0.9% FLUSH 10 ML FLUSH IV FLUSH SCH ×2 (08:36→21:25)
[2017-05-14] MEDS: DOCUSATE SODIUM 50 MG/SENNA 8.6 MG TAB PO SCH ×2 (08:40→21:25)
[2017-05-14] MEDS: THIAMINE HCL 100 MG TAB PO SCH (08:40)
[2017-05-14] MEDS ORDERED: ACETAMINOPHEN/HYDROcodone 325 MG/5 MG TAB PO PRN (10:30)
[2017-05-14] MEDS: PANTOPRAZOLE SOD 40 MG DELAYED RELEASE TAB PO SCH (11:51)
[2017-05-14 12:00] VITALS: BP 123/81; PULSE 85; RESP 18; TEMP 97.6; O2SAT 98
[2017-05-14] MEDS: LEVOFLOXACIN 750 MG TAB PO SCH (15:46)
[2017-05-14 16:00] VITALS: BP 100/76; PULSE 84; RESP 16; TEMP 98; O2SAT 99
[2017-05-14 20:00] VITALS: BP 129/63; PULSE 92; RESP 18; TEMP 97.5; O2SAT 98
[2017-05-14] MEDS: ACETAMINOPHEN/HYDROcodone 325 MG/5 MG TAB PO PRN (21:39)
[2017-05-15] VITALS: BP 126/61; PULSE 99; RESP 18; TEMP 98; O2SAT 96
[2017-05-15] MEDS: ACETAMINOPHEN/HYDROcodone 325 MG/5 MG TAB PO PRN ×2 (03:49→09:55)
[2017-05-15 07:50] VITALS: BP 108/72; PULSE 83; RESP 20; TEMP 96.5; O2SAT 99
--- NOTE | 2017-05-15 08:34 | HHI.DS ---
Discharge Summary Admission Date May 11, 2017 at 10:32 Discharge Date: May 15, 2017 Admitting Diagnosis Acute alcoholic pancreatitis, alcohol intoxication (1) Acute alcoholic pancreatitis ICD Code: K85.2 - Alcohol induced acute pancreatitis Status: Acute (2) Hypokalemia ICD Code: E87.6 - Hypokalemia Status: Acute (3) Transaminitis ICD Code: R74.0 - Transaminitis Status: Acute Procedures Please see below Brief History - From Admission This is a pleasant 47-year-old female patient with a known medical history of alcohol abuse and tobacco abuse who presented to the ED with complaints of severe intractable abdominal pain. Patient states that the abdominal pain started 2 days ago, initially began in her periumbilical area and radiated up her epigastric area and left flank and back. She rates the pain a 10 out of 10 at its worst on pain scale, characterized the pain as sharp and aching in nature. Patient does admit to drinking up to 8-9 beers per day for many years. She does admit to a history of pancreatitis and similar symptoms in the past. She does state her last alcoholic drink was yesterday. Does admit to previous withdrawals if she does not drink alcohol. Patient denies any associated symptoms such as fever, chills, cough, vomiting, diarrhea or dysuria. It should be noted that patient has a history of umbilical clot, was on Coumadin 2 years ago and has not taken this since. Labs on presentation showing hyponatremia, elevated MCV, elevated liver enzymes, bilirubin 0.5. Lipase 2828. Ethanol alcohol 257. CBC/BMP: 05/14/17 0624 05/14/17 0624 Significant Findings Laboratory Tests Test 05/13/17 06:30 05/14/17 06:24 White Blood Count 3.9 TH/MM3 (4.0-11.0) 3.0 TH/MM3 (4.0-11.0) Red Blood Count 3.54 MIL/MM3 (4.00-5.30) 3.21 MIL/MM3 (4.00-5.30) Mean Corpuscular Volume 103.5 FL (80.0-100.0) 104.9 FL (80.0-100.0) Mean Corpuscular Hemoglobin 34.7 PG (27.0-34.0) 34.3 PG (27.0-34.0) Platelet Count 87 TH/MM3 (150-450) 76 TH/MM3 (150-450) Mean Platelet Volume 6.9 FL (7.0-11.0) Eosinophils (%) (Auto) 5.2 % (0.0-4.0) 5.6 % (0.0-4.0) Basophils (%) (Auto) 2.1 % (0.0-2.0) 3.0 % (0.0-2.0) Platelet Estimate LOW (NORMAL) Blood Urea Nitrogen 2 MG/DL (7-18) 1 MG/DL (7-18) Creatinine 0.22 MG/DL (0.50-1.00) 0.30 MG/DL (0.50-1.00) Random Glucose 71 MG/DL (74-106) Albumin 2.5 GM/DL (3.4-5.0) 2.2 GM/DL (3.4-5.0) Alkaline Phosphatase 176 U/L (45-117) 157 U/L (45-117) Aspartate Amino Transf (AST/SGOT) 56 U/L (15-37) 54 U/L (15-37) Total Bilirubin 1.2 MG/DL (0.2-1.0) Sodium Level 130 MEQ/L (136-145) Potassium Level 3.2 MEQ/L (3.5-5.1) Chloride Level 96 MEQ/L (98-107) Lipase 1083 U/L (73-393) 797 U/L (73-393) Hemoglobin 11.0 GM/DL (11.6-15.3) Hematocrit 33.6 % (35.0-46.0) Monocytes (%) (Auto) 10.5 % (0.0-8.0) Neutrophils # (Auto) 1.4 TH/MM3 (1.8-7.7) Total Protein 5.7 GM/DL (6.4-8.2) Calcium Level 8.4 MG/DL (8.5-10.1) Imaging Last Impressions Abdomen/Pelvis CT 05/13/17 0000 Signed Impressions: Service Date/Time: May 15:06 - CONCLUSION: 1. Moderate amount of free fluid in the right pelvis. 2. Steatosis of the liver. 3. Small focal area of infiltrate in the medial right lower lung. 4. No peripancreatic fluid collections seen. Mario Neri MD Chest X-Ray 05/10/17 4360 Signed Impressions: Service Date/Time: Wednesday, May 10, 2017 23:06 - CONCLUSION: Hyperinflated lungs without focal infiltrate Cezar Morrow MD PE at Discharge GENERAL: Well-developed, thin appearing female patient in NAD. SKIN: Warm and dry. No rash. HEAD: Normocephalic. Atraumatic. EYES: Pupils equal and round. No scleral icterus. No injection or drainage. ENT: No nasal bleeding or discharge. Mucous membranes pink and moist. NECK: Supple. Trachea midline. CARDIOVASCULAR: Regular rate and rhythm. S1, S2 noted. No murmur appreciated. RESPIRATORY: No accessory muscle use. Clear to auscultation. Breath sounds equal bilaterally. GASTROINTESTINAL: Abdomen soft, nondistended, tender to palpation. Normoactive bowel sounds x4. MUSCULOSKELETAL: No obvious deformities. Extremities without clubbing, cyanosis , or edema. NEUROLOGICAL: Awake and alert. No obvious cranial nerve deficits. Motor grossly within normal limits. 5/5 muscle strength in bilateral upper and lower extremities. Normal speech. PSYCHIATRIC: Appropriate mood and affect; insight and judgment normal. Pt update on day of discharge Follow-up acute pancreatitis. Patient seen and examined, sitting up in bed eating breakfast. In no apparent distress. Pain well controlled. Improved. Tolerating p.o. intake without nausea or vomiting. Vital signs are stable. Will discharge home today. Hospital Course Patient presented with acute alcoholic pancreatitis, lipase elevated, started on IV narcotics, n.p.o. Abdominal pelvis CT reviewed showing steatosis of the liver, some free fluid. Lipase trended down upon discharge. Diet was advanced , now tolerating p.o. intake without any nausea or vomiting. Abdominal pain has subsided. Was placed on alcoholic withdrawal protocol and supplements. No seizures or withdrawals noted. Patient has been encouraged to stop drinking alcohol. Will be discharged to follow-up with PCP. Pt Condition on Discharge: Good Discharge Disposition: Discharge Home Discharge Time: <= 30 minutes Discharge Instructions DIET: Follow Instructions for: Heart Healthy Diet Additional Diet Instructions: No alcohol Activities you can perform: Regular-No Restrictions Follow up Referrals: PCP Follow-up - 1 Week New Medications: Ketorolac (Ketorolac) 10 Mg Tab 10 MG PO Q6HR PRN for PAIN for 7 Days, #28 TAB 0 Refills Pantoprazole (Protonix) 20 Mg Tab 20 MG PO DAILY for Reflux for 14 Days, #14 TAB 0 Refills Walker Rolling/GetGo (Walker Rolling/GetGo) 1 Mis Mis EA .XX DIRECTED, #1 Folic Acid (Folic Acid) 1 Mg Tablet 1 MG PO DAILY for supplement for 30 Days, #30 TAB Levofloxacin (Levaquin) 750 Mg Tablet 750 MG PO DAILY@1700 for infection for 5 Days, #5 TAB Multivitamin with Folic Acid (Thera Tablet) 400 Mcg Tablet 1 TAB PO DAILY for supplement for 30 Days, #30 TAB Thiamine HCl (Gnp Vitamin B-1) 100 Mg Tab 100 MG PO DAILY for supplement for 30 Days, #30 TAB Kayley Ludwig May 15, 2017 08:34
[2017-05-15] MEDS ORDERED: MULTIVITAMIN TAB PO SCH (09:00)
[2017-05-15] MEDS ORDERED: FOLIC ACID 1 MG TAB PO SCH (09:00)
[2017-05-15] MEDS: THIAMINE HCL 100 MG TAB PO SCH (09:22)
[2017-05-15] MEDS: DOCUSATE SODIUM 50 MG/SENNA 8.6 MG TAB PO SCH (09:22)
[2017-05-15] MEDS: SODIUM CHLORIDE 0.9% FLUSH 10 ML FLUSH IV FLUSH SCH (09:22)
[2017-05-15] MEDS: PANTOPRAZOLE SOD 40 MG DELAYED RELEASE TAB PO SCH (09:22)
[2017-05-15] MEDS ORDERED: THERTAB15 PO (11:00)
[2017-05-15] MEDS ORDERED: KETO10 PO (11:00)
[2017-05-15] MEDS ORDERED: THIA100 PO (11:00)
[2017-05-15] MEDS ORDERED: LEVA750T9 PO (11:00)
[2017-05-15] MEDS ORDERED: FOLI1TAB6 PO (11:00)
[2017-05-15] MEDS ORDERED: PANT20 PO (11:00)
[2017-05-15 11:50] VITALS: BP 124/78; PULSE 92; RESP 20; TEMP 97.5; O2SAT 98
== END 2017-05-15 15:40 | disposition home or self-care (01) | DRG 439 ==
LOC: PHED 22:17 → PHEDA 05-11 00:40 → PH3A 05-11 01:53 → OBSVTOIN 05-11 10:32
PROVIDERS: ADMIT Hospitalist; ATTEND Hospitalist
DX: K85.20 Alcohol induced acute pancreatitis without necrosis or infection (principal); R64 Cachexia; Z68.1 Body mass index [BMI] 19.9 or less, adult; E87.1 Hypo-osmolality and hyponatremia; Y90.8 Blood alcohol level of 240 mg/100 ml or more; E86.0 Dehydration; F41.9 Anxiety disorder, unspecified; F17.210 Nicotine dependence, cigarettes, uncomplicated; F10.120 Alcohol abuse with intoxication, uncomplicated; D69.6 Thrombocytopenia, unspecified; E87.6 Hypokalemia
CPT/HCPCS: 71045; 74177; 76937; 80053; 80307; 82550; 83605; 83690; 84484; 85025; 93005; 96374; 96375; J1885; J2060; J2270; J2405; J3411; J3480; J7030; J7040; Q9963; Q9967